=== PATIENT | male | born 1955 | race Caucasian/White ===

== ENCOUNTER 2024-10-01 11:25 | Inpatient (IN) | payer MEDICAID, OTHER ==
--- OUTSIDE RECORDS SUMMARY | 2024-10-01 11:32 | XMS REPORT | Continuity of Care Document ---
Author Name Unknown Address [address] [place] [address]. [address] [place] [address] Organization [facility] [place] Address [address] [facility]. [address] [place] [address] Care Team Providers Care Machine Tool Operator Name Role Phone ABEBA ACOSTA Attending Clinician Unavailable JANIYA GAFFNEY Attending Clinician Unavailable IRISH LEBLANC Attending Clinician Unavailable SHON MAZARIEGOS Attending Clinician Unavaila GRACIELA Matt Attending Clinician Unavailab le LORENA, EKG- Attending Clinician Unavailable [id number] Attending Clinician Unavailable NARGIS LATHAM Attending Clinician Unavaila ble 1, [facility] Attending Clinic kennedy Unavailable [id number] Attending Clinician Unavailable MD JENNIFER Attending Clinician UnavailANDRA Hoffman Attending Clinician Unava ilable [id number] Attending Clinician Unavailable TAMI YODER Attending Clinician Unava ilable ADALBERTO GALINDO Attending Clinician Unavailable TOMOGRAPHY, MP [facility] Attending [place] cooper Unavailable MIGUEL SHEEHAN Attending Clinician Unavailable Payers Payer Name Policy Type Policy Number Effective Date Expirati on Date Source GID Group [employer] HMO-POS 16 [id number] 2024 00:00:00 HUMANA MA GOLD PLUS 42 OA 7 [id number] 2022 00:00:00 Problems Condition Name Condition Details Condition Category Status Onset Date Resolution Date Last Treatment Date Treating Clinician Comments Source 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 (multi HCC) 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 (multi HCC) Disease Active 09-06 00:00: 00 Yue Seybold - Externa l 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, both eyes 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, both eyes Disease Active 09-06 00:00: 00 Yue Seybold - Externa l Type 2 diabetes mellitus with hyperglyce chelsey, with long-term current use of insulin (multi HCC) Type 2 diabetes mellitus with hyperglyce chelsey, with long-term current use of insulin (multi HCC) Disease Active 08-30 00:00: 00 Yue Seybold - Externa l Microalbum inuria due to type 2 diabetes mellitus (multi HCC) Microalbum inuria due to type 2 diabetes mellitus (multi HCC) Disease Active 08-30 00:00: 00 Yue Seybold - Externa l Diabetic polyneurop athy associated with type 2 diabetes mellitus (multi HCC) Diabetic polyneurop athy associated with type 2 diabetes mellitus (multi HCC) Disease Active 07-07 00:00: 00 Yue Seybold - Externa l 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 Disease Active 07-07 00:00: 00 Yue Seybold - Externa l Well adult exam Well adult exam Disease Active 2022-05 00:00: 00 Yue Seybold - Externa l Class 1 obesity due to excess calories with serious comorbidit y and body mass index (BMI) of 32.0 to 32.9 in adult Class 1 obesity due to excess calories with serious comorbidit y and body mass index (BMI) of 32.0 to 32.9 in adult Disease Active 09-09 00:00: 00 Yue Seybold - Externa l Left hip pain Left hip pain Disease Active 09-09 00:00: 00 Yue Seybold - Externa l Class 1 obesity due to excess calories with serious comorbidit y and body mass index (BMI) of 33.0 to 33.9 in adult Class 1 obesity due to excess calories with serious comorbidit y and body mass index (BMI) of 33.0 to 33.9 in adult Disease Active 09-09 00:00: 00 Yue Seybold - Externa l Bilateral tinnitus Bilateral tinnitus Disease Active 09-09 00:00: 00 Yue Seybold - Externa l Hearing loss Hearing loss Disease Active 09-09 00:00: 00 Yue Seybold - Externa l Severe obesity Severe obesity Disease Active 09-09 00:00: 00 Yue Seybold - Externa l Hypertensi on Hypertensi on Disease Active 06-12 00:00: 00 Yue Seybold - Externa l High cholestero l High cholestero l Disease Active 06-12 00:00: 00 Yue Seybold - Externa l DM (diabetes mellitus) DM (diabetes mellitus) Disease Active 06-12 00:00: 00 Overview: Formattin g of this note might be different from the original. type 2 Yue Seybold - Externa l DM type 2 with diabetic mixed hyperlipid emia (multi HCC) DM type 2 with diabetic mixed hyperlipid emia (multi HCC) Disease Active 06-12 00:00: 00 Overview: Formattin g of this note might be different from the original. type 2 Yue Seybold - Externa l Sciatic nerve pain, left Sciatic nerve pain, left Disease Active 06-12 00:00: 00 Yue Seybold - Externa l Allergies, Adverse Reactions, Alerts Allergy Name Allergy Type Status Severity Reaction(s) Onset Date Inactive Date Treating Clinician Comments Source A[place] in [place] to adverse reaction s Active Rash 10-23 00:00: 00 Yue Seybold - Externa l Social History Social Habit Start Date Stop Date Quantity Comments Source History of tobacco use Chews Tobacco Yue Boykin - External Gender identity Consuelo ey Ashutosh - External Sexual orientation K tabithay Ashutosh - External History of Occupation Yue Boykin - External Alcoholic beverage intake 2024-09-22 00:00:00 2024-09-22 00:00:00 Ex-drinker (finding) Yue Boykin - External Alcohol intake 2023-08-05 00:00:00 2023-08-05 00:00:00 Ex-drinker (finding) Yue Boykin - External Education 2023-05-06 00:00:00 2023-05-06 00:00:00 13 Yue Boykin - External History of Social function 2023-05-06 00:00:00 2023-05-06 00:00:00 Yue Boykin - External Tobacco use and exposure 2023-05-06 00:00:00 2023-05-06 00:00:00 Former smokeless tobacco user Yue Boykin - External Sex 2022-06-05 12:38:15 2022-06-05 12:38:15 Male (finding) Yue Boykin - External Sex assigned at 1955 00:00:00 1955 00:00:00 Yue Boykin - External Smoking Status Start Date Stop Date Source Never smoked tobacco Yue Boykin - External Medications Ordered Medication Name Filled Medication Name Start Date Stop Date Current Medication? Ordering Clinician Indication Dosage Frequency Signature (SIG) Comments Components Source Bevacizumab (AVASTIN) injection 1.25 mg/0.05 mL (INJ07) - Physician Administere d 09-22 10:10: 19 No [id number] 1.25mg 1.25 mg, Physician Administer ed, ONCE, 1 dose, On Fri09/22/24 at 1015 Yue tracy [place]-3 Fatty Acids (Fish Oil) 1000 MG oral Capsule 09-22 09:48: 22 Yes [id number] 3 1000mg Q.5D Take 1 capsule (1,000 mg total) by mouth in the morning and 1 capsule (1,000 mg total) in the evening. Yue tracy Fexofenadin e (Deja Allergy) 180 MG oral Tablet 09-22 09:48: 22 Yes 180mg QD Take 1 tablet (180 mg total) by mouth daily. Yue tracy Insulin Pen Needle (Pen [place]) 31G X 8 MM does not apply [facility] 09-14 00:00: 00 Yes [id number] 9109 Inject Lantus Solostar 60 units into the skin 2 times daily.. Yue tracy [place]-3 Fatty Acids (Fish Oil) 1000 MG oral Capsule 09-08 09:51: 26 Yes [id number] 3 1000mg Q.5D Take 1 capsule (1,000 mg total) by mouth in the morning and 1 capsule (1,000 mg total) in the evening. Yue tracy Fexofenadin e (Deja Allergy) 180 MG oral Tablet 09-08 09:51: 26 Yes 180mg QD Take 1 tablet (180 mg total) by mouth daily. Yue tracy Moxifloxaci n HCl 0.5 % ophthalmic Solution 09-08 00:00: 00 Yes 1[drp] Q.25D Place 1 drop into both eyes 4 times daily. Yue tracy prednisoLON E Acetate 1 % ophthalmic Suspension 09-08 00:00: 00 Yes 1[drp] Q.25D Place 1 drop into both eyes 4 times daily. Yue tracy KETOROLAC TROMETHAMIN E, OPHTH, 0.5 % ophthalmic Solution 09-08 00:00: 00 Yes 1[drp] Q.25D Place 1 drop into both eyes 4 times daily. Yue tracy Aspirin (Aspirin 81) 81 MG oral Tablet Delayed Response 09-06 09:25: 02 09-06 00:00 :00 No 81mg QD Take 1 tablet (81 mg total) by mouth daily. Yue tracy [place]-3 Fatty Acids (Fish Oil) 1000 MG oral Capsule 09-06 09:05: 19 Yes [id number] 3 1000mg Q.5D Take 1 capsule (1,000 mg total) by mouth in the morning and 1 capsule (1,000 mg total) in the evening. Yue tracy Fexofenadin e (Deja Allergy) 180 MG oral Tablet 09-06 09:05: 19 Yes 180mg QD Take 1 tablet (180 mg total) by mouth daily. Yue tracy Atorvastati n Calcium 10 MG oral Tablet 09-06 00:00: 00 Yes [id number] 3 10mg QD Take 1 tablet (10 mg total) by mouth daily. Yue tracy Valsartan-h ydroCHLOROt hiazide 320-25 MG oral Tablet 09-06 00:00: 00 Yes [id number] 1{tbl} QD Take 1 tablet by mouth daily. Yue tracy Amlodipine Besylate 10 MG oral Tablet 09-06 00:00: 00 Yes [id number] 10mg QD Take 1 tablet (10 mg total) by mouth daily. Yue tracy Aspirin 325 MG oral Tablet 09-06 00:00: 00 Yes [id number] 325mg QD Take 1 tablet (325 mg total) by mouth daily. Yue tracy Bevacizumab (AVASTIN) infusion 1.25 mg/0.05 mL (INJ07)- Physician Administere d 08-25 13:56: 04 No [id number] 1.25mg 1.25 mg, Physician Administer ed, ONCE, 1 dose, On Fri08/25/24 at 1400 Yue tracy Aspirin (Aspirin 81) 81 MG oral Tablet Delayed Response 08-25 13:27: 40 Yes 81mg QD Take 1 tablet (81 mg total) by mouth daily. Yue tracy [place]-3 Fatty Acids (Fish Oil) 1000 MG oral Capsule 08-25 13:27: 40 Yes [id number] 3 1000mg Q.5D Take 1 capsule (1,000 mg total) by mouth in the morning and 1 capsule (1,000 mg total) in the evening. Yue tracy Fexofenadin e (Deja Allergy) 180 MG oral Tablet 08-25 13:27: 40 Yes 180mg QD Take 1 tablet (180 mg total) by mouth daily. Yue tracy [place]-3 Fatty Acids (Fish Oil) 1000 MG oral Capsule 08-06 09:34: 59 Yes [id number] 3 1000mg Q.5D Take 1 capsule (1,000 mg total) by mouth 2 times daily. Yue tracy Aspirin (Aspirin 81) 81 MG oral Tablet Delayed Response 08-06 09:34: 58 Yes 81mg QD Take 1 tablet (81 mg total) by mouth daily. Yue tracy Fexofenadin e (Deja Allergy) 180 MG oral Tablet 08-06 09:34: 58 Yes 180mg QD Take 1 tablet (180 mg total) by mouth daily. Yue tracy Benzonatate (Tessalon Perles) 100 MG oral Capsule 08-06 00:00: 00 09-06 00:00 :00 No [id number] 100mg Q.[id number] 3D Take 1 capsule (100 mg total) by mouth 3 times daily as needed for cough. Yue tracy Famotidine (Pepcid) 20 MG oral tablet 08-06 00:00: 00 09-06 00:00 :00 No [id number] 20mg Q.5D Take 1 tablet (20 mg total) by mouth 2 times daily as needed for heartburn. Yue tracy Azithromyci n 250 MG oral Tablet 08-06 00:00: 00 08-12 04:59 :00 Yes [id number] Take 2 tablets by mouth on day 1 then 1 tablet by mouth daily for 4 days thereafter .. Yue tracy Aspirin (Aspirin 81) 81 MG oral Tablet Delayed Response 07-21 13:23: 06 Yes 81mg QD Take 1 tablet (81 mg total) by mouth daily. Yue tracy [place]-3 Fatty Acids (Fish Oil) 1000 MG oral Capsule - 13:23: 06 Yes [id number] 3 1000mg Q.5D Take 1 capsule (1,000 mg total) by mouth 2 times daily. Yue tracy Aspirin (Aspirin 81) 81 MG oral Tablet Delayed Response - 08:39: 53 Yes 81mg QD Take 1 tablet (81 mg total) by mouth daily. Yue tracy [place]-3 Fatty Acids (Fish Oil) 1000 MG oral Capsule -10 08:39: 53 Yes [id number] 3 1000mg Q.5D Take 1 capsule (1,000 mg total) by mouth 2 times daily. Yue tracy Gabapentin 300 MG oral Capsule 06-04 00:00: 00 Yes [id number] 300mg Q.[id number] 3D Take 1 capsule (300 mg total) by mouth 3 times daily as needed. Yue tracy Metformin HCl 1000 MG oral Tablet 06-04 00:00: 00 Yes [id number] 1000mg Q.5D Take 1 tablet (1,000 mg total) by mouth 2 times daily. Yue tracy Meloxicam 15 MG oral Tablet 06-04 00:00: 00 Yes [id number] 15mg QD Take 1 tablet (15 mg total) by mouth daily as needed for pain. Yue tracy Insulin Glargine (Lantus SoloStar) 100 UNIT/ML subcutaneou s Solution Pen-injecto r 06-04 00:00: 00 Yes [id number] 60U Q.5D Inject 60 units into the skin 2 times daily. Yue tracy Valsartan-h ydroCHLOROt hiazide 320-25 MG oral Tablet 06-04 00:00: 00 09-06 00:00 :00 No [id number] 1{tbl} QD Take 1 tablet by mouth daily. Yue tracy Amlodipine Besylate 10 MG oral Tablet 06-04 00:00: 00 09-06 00:00 :00 No [id number] 10mg QD Take 1 tablet (10 mg total) by mouth daily. Yue tracy Faricimab-s voa SOSY 6 mg 2023-05 10:17: 37 No [id number] 6mg 6 mg, Physician Administer ed, ONCE, 1 dose, On Fri05/05/24 at 0945 Yue tracy Aspirin (Aspirin 81) 81 MG oral Tablet Delayed Response 2023-05 09:40: 17 Yes 81mg QD Take 1 tablet (81 mg total) by mouth daily. Yue tracy [place]-3 Fatty Acids (Fish Oil) 1000 MG oral Capsule 2023-05 09:40: 17 Yes [id number] 3 1000mg Q.5D Take 1 capsule (1,000 mg total) by mouth 2 times daily. Yue tracy Meloxicam 15 MG oral Tablet 2023-05 2-11 00:00: 00 06-04 00:00 :00 No [id number] 15mg QD TAKE 1 TABLET BY MOUTH ONCE DAILY NEEDED FOR PAIN Yue tracy Insulin Glargine (Lantus SoloStar) 100 UNIT/ML subcutaneou s Solution Pen-injecto r 2023-05 1-12 00:00: 00 06-04 00:00 :00 No [id number] 60U Q.5D Inject 60 units into the skin 2 times daily. Yue tracy Simvastatin 10 MG oral Tablet 2023-05 0-09 00:00: 00 09-06 00:00 :00 No [id number] 3 10mg QD Take 1 tablet (10 mg total) by mouth nightly. Yue tracy Faricimab-S VOA (VABYSMO) 2 mg/0.05 mL Intravitrea l Vial - Physician Administere d ([id number]) 02-08 13:32: 29 No [id number] 12mg 12 mg, Physician Administer ed, ONCE, 1 dose, On Fri02/09/24 at 1330 Yue tracy Aspirin (Aspirin 81) 81 MG oral Tablet Delayed Response 02-08 12:44: 02 Yes 81mg QD Take 1 tablet (81 mg total) by mouth daily. Yue tracy [place]-3 Fatty Acids (Fish Oil) 1000 MG oral Capsule 02-08 12:44: 02 Yes [id number] 3 1000mg Q.5D Take 1 capsule (1,000 mg total) by mouth 2 times daily. Yue tracy Insulin Glargine (Lantus SoloStar) 100 UNIT/ML subcutaneou s Solution Pen-injecto r 02-03 00:00: 00 Yes [id number] INJECT UNDER THE SKIN 60 UNITS DAILY IN MORNING AND 60 UNITS EVERY NIGHT. Yue tracy Empaglifloz in (Jardiance) 10 MG oral Tablet 2024-0 9-11 00:00: 00 Yes [id number] 10mg QD Take 1 tablet (10 mg total) by mouth daily. Yue tracy Meloxicam 15 MG oral Tablet - 00:00: 00 Yes [id number] 15mg QD take 1 tablet by mouth once daily as needed for pain Yue tracy Faricimab-S VOA (VABYSMO) 2 mg/0.05 mL Intravitrea l Vial - Physician Administere d ([id number]) 12-04 10:14: 43 No [id number] 12mg 12 mg, Physician Administer ed, ONCE, 1 dose, On Fri12/05/23 at 0930 Yue tracy Aspirin (Aspirin 81) 81 MG oral Tablet Delayed Response 12-04 10:13: 14 Yes 81mg QD Take 1 tablet (81 mg total) by mouth daily. Yue tracy [place]-3 Fatty Acids (Fish Oil) 1000 MG oral Capsule 12-04 10:13: 14 Yes [id number] 3 1000mg Q.5D Take 1 capsule (1,000 mg total) by mouth 2 times daily. Yue tracy Insulin Glargine (Lantus SoloStar) 100 UNIT/ML subcutaneou s Solution Pen-injecto r 11-23 00:00: 00 Yes [id number] INJECT UNDER THE SKIN 70 UNITS DAILY IN MORNING AND 60 UNITS EVERY NIGHT. Yue tracy Meloxicam 15 MG oral Tablet 10-26 00:00: 00 Yes [id number] 15mg QD Take 1 tablet (15 mg total) by mouth daily as needed for pain. Yue tracy Valsartan-h ydroCHLOROt hiazide 320-25 MG oral Tablet - 00:00: 00 06-04 00:00 :00 No [id number] 1{tbl} QD Take 1 tablet by mouth daily. Yue tracy Faricimab-S VOA (VABYSMO) 2 mg/0.05 mL Intravitrea l Vial - Physician Administere d ([id number]) 10-07 14:15: 00 10-07 14:09 :00 No [id number] 12mg 12 mg, Physician Administer ed, ONCE, 1 dose, On Fri10/08/23 at 0915 Yue tracy Empaglifloz in (Jardiance) 10 MG oral Tablet 09-14 00:00: 00 02-03 00:00 :00 No [id number] 3 10mg QD Take 1 tablet (10 mg total) by mouth daily. Yue tracy Insulin Glargine (Lantus SoloStar) 100 UNIT/ML subcutaneou s Solution Pen-injecto r 09-03 00:00: 00 Yes [id number] Inject 70 units sc every am and 60 units sc every night. Yue tracy Gabapentin 300 MG oral Capsule 08-31 00:00: 00 06-04 00:00 :00 No [id number] 300mg Q.[id number] 3D Take 1 capsule (300 mg total) by mouth 3 times daily as needed. Yue tracy Faricimab-S VOA (VABYSMO) 2 mg/0.05 mL Intravitrea l Vial - Physician Administere d ([id number]) 08-12 16:00: 00 08-12 15:49 :00 No [id number] 12mg Yue tracy Bimatoprost (Lumigan) 0.01 % ophthalmic Solution 08-12 10:01: 55 Yes 750 1[drp] Place 1 drop into both eyes 2 times daily. Indication s: Glaucoma Yue tracy Aspirin (Aspirin 81) 81 MG oral Tablet Delayed Response 08-12 09:51: 18 Yes 81mg Take 1 tablet (81 mg total) by mouth daily. Yue tracy [place]-3 Fatty Acids (Fish Oil) 1000 MG oral Capsule 08-12 09:51: 18 Yes [id number] 3 1000mg Take 1 capsule (1,000 mg total) by mouth 2 times daily. Yue Seybold - Externa l Dorzolamide HCl 2 % ophthalmic Solution 08-04 00:00: 00 Yes [id number] 1[drp] Q.5D Place 1 drop into both eyes 2 times daily. Yue Swanson Externa l Aspirin (Aspirin 81) 81 MG oral Tablet Delayed Response 08-03 13:51: 18 Yes 81mg Take 1 tablet (81 mg total) by mouth daily. Yue Swanson Externa demarcus [place]-3 Fatty Acids (Fish Oil) 1000 MG oral Capsule 08-03 13:51: 18 Yes [id number] 3 1000mg Take 1 capsule (1,000 mg total) by mouth 2 times daily. Yue Swanson Externa demarcus Bimatoprost (Lumigan) 0.01 % ophthalmic Solution 08-03 13:51: 18 Yes 750 1[drp] Place 1 drop into both eyes 2 times daily. Indication s: Glaucoma Yue tracy Meloxicam 15 MG oral Tablet 07-28 00:00: 00 Yes [id number] 15mg QD Take 1 tablet (15 mg total) by mouth daily as needed for pain. Yue Cummingsa demarcus Insulin Glargine (Lantus SoloStar) 100 UNIT/ML subcutaneou s Solution Pen-injecto r 07-23 00:00: 00 Yes [id number] Inject 70 units sc every am and 60 units sc every night. Yue tracy Faricimab-S VOA (VABYSMO) 2 mg/0.05 mL Intravitrea l Vial - Physician Administere d ([id number]) 07-09 20:15: 00 07-09 20:21 :00 No [id number] 12mg Yue tracy Aspirin (Aspirin 81) 81 MG oral Tablet Delayed Response 07-09 13:59: 34 Yes 81mg Take 1 tablet (81 mg total) by mouth daily. Yue Cummingsa demarcus Meloxicam 15 MG oral Tablet 07-09 13:59: 34 Yes [id number] 15mg Take 1 tablet (15 mg total) by mouth daily. Yue Seybold - Externa l [place]-3 Fatty Acids (Fish Oil) 1000 MG oral Capsule 14 13:59: 34 Yes [id number] 3 1000mg Take 1 capsule (1,000 mg total) by mouth 2 times daily. Yue tracy [place]-3 Fatty Acids (Fish Oil) 1000 MG oral Capsule 07-07 09:11: 58 Yes [id number] 3 1000mg Take 1 capsule (1,000 mg total) by mouth 2 times daily. Yue tracy Aspirin (Aspirin 81) 81 MG oral Tablet Delayed Response 07-07 08:52: 50 Yes 81mg Take 1 tablet (81 mg total) by mouth daily. Yue tracy Meloxicam 15 MG oral Tablet 07-07 08:52: 50 Yes [id number] 15mg Take 1 tablet (15 mg total) by mouth daily. Yue tracy Insulin Glargine (Lantus SoloStar) 100 UNIT/ML subcutaneou s Solution Pen-injecto r 07-07 00:00: 00 Yes [id number] Inject 70 units sc every am and 60 units sc every night. Yue tracy Gabapentin 300 MG oral Capsule 07-07 00:00: 00 Yes [id number] 300mg Q.5D Take 1 capsule (300 mg total) by mouth 2 times daily as needed (neuropath y). Yue tracy Metformin HCl 1000 MG oral Tablet 07-07 00:00: 00 06-04 00:00 :00 No [id number] 1000mg Q.5D Take 1 tablet (1,000 mg total) by mouth 2 times daily. Yue tracy Amlodipine Besylate 10 MG oral Tablet 07-07 00:00: 00 06-04 00:00 :00 No [id number] 10mg QD Take 1 tablet (10 mg total) by mouth daily. Yue tracy Gabapentin 300 MG oral Capsule -12 00:00: 00 07-07 00:00 :00 No [id number] 300mg Q.[id number] 3D Take 1 capsule (300 mg total) by mouth 3 times daily as needed. Yue tracy Faricimab-S VOA (VABYSMO) 2 mg/0.05 mL Intravitrea l Vial - Physician Administere d ([id number]) 2022-05 15:15: 00 05-21 15:09 :00 No [id number] 12mg Yue Conti l Aspirin (Aspirin 81) 81 MG oral Tablet Delayed Response 2022-05 09:07: 38 Yes 81mg Take 1 tablet (81 mg total) by mouth daily. Yue Cummingsa demarcus Aspirin (Aspirin 81) 81 MG oral Tablet Delayed Response 2022-05 10:15: 47 Yes 81mg Take 1 tablet (81 mg total) by mouth daily. Yue tracy Metformin HCl 1000 MG oral Tablet 2022-05 00:00: 00 07-07 00:00 :00 No [id number] 3 1000mg Take 1 tablet (1,000 mg total) by mouth 2 times daily. Yue tracy Bilateral: Dexamethaso ne [0.7 mg], 1.4mg Intravitrea l - Physician Administere d ([id number]) 2022-05 16:15: 00 04-09 16:13 :00 No [id number] 1.4mg Yue tracy Aspirin (Aspirin 81) 81 MG oral Tablet Delayed Response 2022-05 09:17: 25 Yes 81mg Take 1 tablet (81 mg total) by mouth daily. Yue Cummingsa l Bilateral: Bevacizumab (AVASTIN) [100 mg/4 mL], 2.5mg - Physician Administere d ([id number]) 2022-05 15:45: 00 03-12 16:11 :00 No [id number] 2.5mg Yue Conti l Aspirin (Aspirin 81) 81 MG oral Tablet Delayed Response 2022-05 11:03: 04 Yes 81mg Take 1 tablet (81 mg total) by mouth daily. Yue tracy Cholecalcif pat (D3 5000) 125 MCG (5000 UT) oral Capsule 2022-05 09:40: 59 03-10 00:00 :00 No Take by mouth Yue tracy Dorzolamide HCl 2 % ophthalmic Solution 2022-05 09:40: 55 03-10 00:00 :00 No 1[drp] Place 1 drop into both eyes 2 times daily. Yue tracy Aspirin (Aspirin 81) 81 MG oral Tablet Delayed Response 2022-05 09:37: 04 Yes 81mg Take 1 tablet (81 mg total) by mouth daily. Yue tracy Gabapentin 300 MG oral Capsule 2022-05 00:00: 00 Yes [id number] 300mg Q.[id number] 3D Take 1 capsule (300 mg total) by mouth 3 times daily as needed. Yue tracy Aspirin (Aspirin 81) 81 MG oral Tablet Delayed Response 2022-05 09:36: 13 Yes 81mg Take 1 tablet (81 mg total) by mouth daily. Yue tracy Cholecalcif pat (D3 5000) 125 MCG (5000 UT) oral Capsule 2022-05 09:36: 13 Yes Take by mouth Yue tracy Dorzolamide HCl 2 % ophthalmic Solution 2022-05 09:36: 13 Yes 1[drp] Place 1 drop into both eyes 2 times daily. Yue tracy Tizanidine HCl 2 MG oral Tablet 2022-05 00:00: 00 07-07 00:00 :00 No [id number] 2mg Take 1 tablet (2 mg total) by mouth at bedtime as needed for muscle spasms. Yue tracy Insulin Pen Needle (Pen [place]) 32G X 4 MM does not apply [facility] 2022-05 00:00: 00 Yes [id number] 3 70U Q.5D Inject 70 units into the skin 2 times daily Provide what insurance covers. Thank you.. Yue tracy Bilateral: Bevacizumab (AVASTIN) [100 mg/4 mL], 2.5mg - Physician Administere d ([id number]) 02-12 15:30: 00 02-12 15:21 :00 No [id number] 2.5mg Yue tracy Aspirin (Aspirin 81) 81 MG oral Tablet Delayed Response 02-12 09:55: 11 Yes 81mg Take 1 tablet (81 mg total) by mouth daily. Yue tracy Cholecalcif pat (D3 5000) 125 MCG (5000 UT) oral Capsule 02-12 09:55: 11 Yes Take by mouth Yue tracy Dorzolamide HCl 2 % ophthalmic Solution 02-12 09:55: 11 Yes 1[drp] Place 1 drop into both eyes 2 times daily. Yue tracy Alprazolam 0.25 MG oral Tablet 02-07 00:00: 00 03-10 00:00 :00 No [id number] .25mg QD Take 1 tablet (0.25 mg total) by mouth daily as needed for anxiety. Yue tracy Metformin HCl 1000 MG oral Tablet 01-20 00:00: 00 Yes [id number] 3 1000mg TAKE 1 TABLET BY MOUTH TWICE A DAY Yue tracy Bilateral: Bevacizumab (AVASTIN) [100 mg/4 mL], 2.5mg - Physician Administere d ([id number]) 01-15 14:00: 00 01-15 13:57 :00 No [id number] 2.5mg Yue tracy Aspirin (Aspirin 81) 81 MG oral Tablet Delayed Response 01-15 07:57: 46 Yes 81mg Take 1 tablet (81 mg total) by mouth daily. Yue tracy Cholecalcif pat (D3 5000) 125 MCG (5000 UT) oral Capsule 01-15 07:57: 46 Yes Take by mouth Yue tracy Dorzolamide HCl 2 % ophthalmic Solution 01-15 07:57: 46 Yes 1[drp] Place 1 drop into both eyes 2 times daily. Yue tracy Aspirin (Aspirin 81) 81 MG oral Tablet Delayed Response 01-07 08:43: 47 Yes 81mg Take 1 tablet (81 mg total) by mouth daily Yue tracy Cholecalcif pat (D3 5000) 125 MCG (5000 UT) oral Capsule 01-07 08:43: 47 Yes Take by mouth Yue tracy Dorzolamide HCl 2 % ophthalmic Solution 01-07 08:43: 47 Yes 1[drp] Place 1 drop into both eyes 2 times daily Yue tracy Cyclobenzap rine HCl 10 MG oral Tablet 12-28 00:00: 00 03-07 00:00 :00 No Yue tracy Dorzolamide HCl 2 % ophthalmic Solution 12-09 08:42: 54 Yes 1[drp] Place 1 drop into both eyes 2 times daily Yue tracy Aspirin (Aspirin 81) 81 MG oral Tablet Delayed Response 12-09 08:25: 32 Yes 81mg Take 1 tablet (81 mg total) by mouth daily. Yue tracy Cholecalcif pat (D3 5000) 125 MCG (5000 UT) oral Capsule 12-09 08:25: 32 Yes Take by mouth Yue tracy Simvastatin 10 MG oral Tablet 12-09 00:00: 00 Yes [id number] 3 10mg QD Take 1 tablet (10 mg total) by mouth nightly Yue tracy Gabapentin 100 MG oral Capsule 11-01 00:00: 00 03-10 00:00 :00 No [id number] 100mg Q.[id number] 3D Take 1 capsule (100 mg total) by mouth 3 times daily as needed Yue tracy Metformin HCl 1000 MG oral Tablet 10-23 00:00: 00 Yes [id number] 3 1000mg Take 1 tablet (1,000 mg total) by mouth 2 times daily Yue tracy Valsartan-h ydroCHLOROt hiazide 320-25 MG oral Tablet 10-07 00:00: 00 Yes [id number] 1{tbl} Take 1 tablet by mouth daily Yue tracy Amlodipine Besylate 10 MG oral Tablet 10-07 00:00: 00 07-07 00:00 :00 No [id number] 10mg Take 1 tablet (10 mg total) by mouth daily Yue tracy Aspirin (Aspirin 81) 81 MG oral Tablet Delayed Response 09-09 09:17: 09 Yes 81mg Take 1 tablet (81 mg total) by mouth daily Yue tracy Cholecalcif pat (D3 5000) 125 MCG (5000 UT) oral Capsule 09-09 09:17: 09 Yes Take by mouth Yue tracy Empaglifloz in (Jardiance) 10 MG oral Tablet 09-09 00:00: 00 Yes [id number] 3 10mg Take 1 tablet (10 mg total) by mouth daily Yue tracy Gabapentin 100 MG oral Capsule 09-09 00:00: 00 Yes [id number] 100mg [id number] 3D Take 1 capsule (100 mg total) by mouth 3 times daily as needed Yue tracy Meloxicam 15 MG oral Tablet 09-09 00:00: 00 03-10 00:00 :00 No [id number] 15mg QD Take 1 tablet (15 mg total) by mouth daily as needed for pain Yue tracy Simvastatin 10 MG oral Tablet 09-09 00:00: 00 12-09 00:00 :00 No [id number] 3 10mg Take 1 tablet (10 mg total) by mouth nightly Yue tracy Gabapentin 100 MG oral Capsule 08-25 00:00: 00 09-09 00:00 :00 No Yue tracy Insulin Glargine (Lantus SoloStar) 100 UNIT/ML subcutaneou s Solution Pen-injecto r 2- 00:00: 00 07-07 00:00 :00 No [id number] Inject 70 units twice daily Yue tracy Aspirin (Aspirin 81) 81 MG oral Tablet Delayed Response 06-11 10:29: 41 Yes 81mg Take 81 mg by mouth daily Yue tracy Cholecalcif pat (D3 5000) 125 MCG (5000 UT) oral Capsule 06-11 10:29: 41 Yes Take by mouth Yue tracy Jardiance 10 MG oral Tablet 06-01 00:00: 00 Yes 1{tbl} Take 1 tablet by mouth daily Yue tracy Jardiance 10 MG oral Tablet 06-01 00:00: 00 09-09 00:00 :00 No 10mg Take 1 tablet (10 mg total) by mouth daily Yue tracy Metformin HCl 1000 MG oral Tablet 05-29 00:00: 00 Yes 1{tbl} Take 1 tablet by mouth 2 times daily Yue tracy Valsartan-h ydroCHLOROt hiazide 320-25 MG oral Tablet 05-29 00:00: 00 Yes 1{tbl} Take 1 tablet by mouth daily Yue tracy Amlodipine Besylate 10 MG oral Tablet 05-29 00:00: 00 Yes 1{tbl} Take 1 tablet by mouth daily Yue tracy Simvastatin 10 MG oral Tablet 05-29 00:00: 00 Yes 1{tbl} Take 1 tablet by mouth nightly Yue tracy Metformin HCl 1000 MG oral Tablet 05-29 00:00: 00 Yes 1000mg Take 1 tablet (1,000 mg total) by mouth 2 times daily Yue tracy Amlodipine Besylate 10 MG oral Tablet 05-29 00:00: 00 Yes 10mg Take 1 tablet (10 mg total) by mouth daily Yue tracy Simvastatin 10 MG oral Tablet 05-29 00:00: 00 09-09 00:00 :00 No 10mg Take 1 tablet (10 mg total) by mouth nightly Yue Seybold - Externa l Bimatoprost (Lumigan) 0.01 % ophthalmic Solution 1- 00:00: 00 10-06 00:00 :00 No 750 1[drp] Place 1 drop into both eyes 2 times daily. Indication s: Glaucoma Yue Seybold - Externa l Semglee, yfgn, 100 UNIT/ML subcutaneou s Solution Pen-injecto r 2021-05 00:00: 00 Yes 70U Inject 70 units into the skin 2 times daily Yue Seybold - Externa l Immunizations Ordered Immunization Name Filled Immunization Name Date Status Comments Source Influenza Virus Vaccine, High Dose, Age 65 And Up Unknown Completed Yue Seybold - External RSV, unspecified formulation Unknown Completed Yue Seybold - External Influenza Virus Vaccine, High Dose, Age 65 And Up Unknown Completed Yue Seybold - External RSV, unspecified formulation Unknown Completed Yue Seybold - External Influenza Virus Vaccine, Quadrivalent, High Dose, Age 65 And Up Unknown Completed Yue S eybold - External RSV, Abryzvo Unknown Completed Yue Seybold - External Influenza Virus Vaccine, High Dose, Age 65 And Up Unknown Completed Yue Seybold - External RSV, unspecified formulation Unknown Completed Yue Seybold - External Influenza Virus Vaccine, Quadrivalent, High Dose, Age 65 And Up Unknown Completed Yue S eybold - External RSV, Abryzvo Unknown Completed Yue Seybold - External Influenza Virus Vaccine, High Dose, Age 65 And Up Unknown Completed Yue Seybold - External RSV, unspecified formulation Unknown Completed Yue Seybold - External Influenza Virus Vaccine, Quadrivalent, High Dose, Age 65 And Up Unknown Completed Yue S eybold - External RSV, Abrysvo Unknown Completed Yue Seybold - External Influenza Virus Vaccine, High Dose, Age 65 And Up Unknown Completed Yue Seybold - External RSV, unspecified formulation Unknown Completed Yue Seybold - External Influenza Virus Vaccine, Quadrivalent, High Dose, Age 65 And Up Unknown Completed Yue S eybold - External RSV, Abrysvo Unknown Completed Yue Seybold - External Pneumococcal Vaccine, Conjugate 20 Unknown Completed Yue Seybold - External Influenza Virus Vaccine, High Dose, Age 65 And Up Unknown Completed Yue Seybold - External RSV, unspecified formulation Unknown Completed Yue Seybold - External Influenza Virus Vaccine, Quadrivalent, High Dose, Age 65 And Up Unknown Completed Yue S eybold - External RSV, Abrysvo Unknown Completed Yue Seybold - External Pneumococcal Vaccine, Conjugate 20 Unknown Completed Yue Seybold - External Influenza Virus Vaccine, High Dose, Age 65 And Up Unknown Completed Yue Seybold - External RSV, unspecified formulation Unknown Completed Yue Seybold - External Influenza Virus Vaccine, Quadrivalent, High Dose, Age 65 And Up Unknown Completed Yue S eybold - External RSV, Abrysvo Unknown Completed Yue Seybold - External Pneumococcal Vaccine, Conjugate 20 Unknown Completed Yue Seybold - External Influenza Virus Vaccine, High Dose, Age 65 And Up Unknown Completed Yue Seybold - External RSV, unspecified formulation Unknown Completed Yue Seybold - External Influenza Virus Vaccine, Quadrivalent, High Dose, Age 65 And Up Unknown Completed Yue S eybold - External RSV, Abrysvo Unknown Completed Yue Seybold - External Pneumococcal Vaccine, Conjugate 20 Unknown Completed Yue Seybold - External Influenza Virus Vaccine, High Dose, Age 65 And Up Unknown Completed Yue Seybold - External RSV, unspecified formulation Unknown Completed Yue Seybold - External Influenza Virus Vaccine, Quadrivalent, High Dose, Age 65 And Up Unknown Completed Yue S eybold - External RSV, Abrysvo Unknown Completed Yue Seybold - External Pneumococcal Vaccine, Conjugate 20 Unknown Completed Yue Seybold - External Covid-19 Vaccine (Pfizer), Mrna-lnp, Boris Protein, Pf, 30mcg/0.3ml,IM Unknown Completed Yue Seybol d - External Influenza Virus Vaccine, High Dose, Age 65 And Up Unknown Completed Yue Seybold - External RSV, unspecified formulation Unknown Completed Yue Seybold - External Influenza Virus Vaccine, Quadrivalent, High Dose, Age 65 And Up Unknown Completed Yue S eybold - External RSV, Abrysvo Unknown Completed Yue Seybold - External Pneumococcal Vaccine, Conjugate 20 Unknown Completed Yue Seybold - External Covid-19 Vaccine (Pfizer), Mrna-lnp, Boris Protein, Pf, 30mcg/0.3ml,IM Unknown Completed Yue Seybol d - External Influenza Virus Vaccine, High Dose, Age 65 And Up Unknown Completed Yue Seybold - External RSV, unspecified formulation Unknown Completed Yue Seybold - External Influenza Virus Vaccine, Quadrivalent, High Dose, Age 65 And Up Unknown Completed Yue S eybold - External RSV, Abrysvo Unknown Completed Yue Seybold - External Pneumococcal Vaccine, Conjugate 20 Unknown Completed Yue Seybold - External Covid-19 Vaccine (Pfizer), Mrna-lnp, Boris Protein, Pf, 30mcg/0.3ml,IM Unknown Completed Yue Seybol d - External COVID-19 Vaccine(Pfizer)(fall 2022)(12yrs+) Unknown Completed Yue Seybold - External Influenza Virus Vaccine, High Dose, Age 65 And Up Unknown Completed Yue Seybold - External RSV, unspecified formulation Unknown Completed Yue Seybold - External Influenza Virus Vaccine, Quadrivalent, High Dose, Age 65 And Up Unknown Completed Yue S eybold - External RSV, Abrysvo Unknown Completed Yue Seybold - External Pneumococcal Vaccine, Conjugate 20 Unknown Completed Yue Seybold - External Covid-19 Vaccine (Pfizer), Mrna-lnp, Boris Protein, Pf, 30mcg/0.3ml,IM Unknown Completed Yue Seybol d - External COVID-19 Vaccine(Pfizer)(fall 2022)(12yrs+) Unknown Completed Yue Seybold - External Influenza Virus Vaccine, High Dose, Age 65 And Up Unknown Completed Yue Seybold - External RSV, unspecified formulation Unknown Completed Yue Seybold - External Influenza Virus Vaccine, Quadrivalent, High Dose, Age 65 And Up Unknown Completed Yue S eybold - External RSV, Abrysvo Unknown Completed Yue Seybold - External Pneumococcal Vaccine, Conjugate 20 Unknown Completed Yue Seybold - External Covid-19 Vaccine (Pfizer), Mrna-lnp, Boris Protein, Pf, 30mcg/0.3ml,IM Unknown Completed Yue Seybol d - External COVID-19 Vaccine(Pfizer)(fall 2022)(12yrs+) Unknown Completed Yue Seybold - External Influenza Virus Vaccine, High Dose, Age 65 And Up Unknown Completed Yue Seybold - External RSV, unspecified formulation Unknown Completed Yue Seybold - External Influenza Virus Vaccine, Quadrivalent, High Dose, Age 65 And Up Unknown Completed Yue S eybold - External RSV, Abrysvo Unknown Completed Yue Seybold - External Pneumococcal Vaccine, Conjugate 20 Unknown Completed Yue Seybold - External Covid-19 Vaccine (Pfizer), Mrna-lnp, Boris Protein, Pf, 30mcg/0.3ml,IM Unknown Completed Yue Seybol d - External COVID-19 Vaccine(Pfizer)(12yrs +) Unknown Completed Yue Seybold - External Tdap- (Boostrix, Adacel) Unknown Completed Yue Seybold - External Influenza Virus Vaccine, High Dose, Age 65 And Up Unknown Completed Yue Seybold - External RSV, unspecified formulation Unknown Completed Yue Seybold - External Influenza Virus Vaccine, Quadrivalent, High Dose, Age 65 And Up Unknown Completed Yue S eybold - External RSV, Abrysvo Unknown Completed Yue Seybold - External Pneumococcal Vaccine, Conjugate 20 Unknown Completed Yue Seybold - External Covid-19 Vaccine (Pfizer), Mrna-lnp, Boris Protein, Pf, 30mcg/0.3ml,IM Unknown Completed Yue Seybol d - External COVID-19 Vaccine(Pfizer)(12yrs +) Unknown Completed Yue Seybold - External Tdap- (Boostrix, Adacel) Unknown Completed Yue Seybold - External Influenza Virus Vaccine, High Dose, Age 65 And Up Unknown Completed Yue Seybold - External RSV, unspecified formulation Unknown Completed Yue Seybold - External Influenza Virus Vaccine, Quadrivalent, High Dose, Age 65 And Up Unknown Completed Yue S eybold - External RSV, Abrysvo Unknown Completed Yue Seybold - External Pneumococcal Vaccine, Conjugate 20 Unknown Completed Yue Seybold - External Covid-19 Vaccine (Pfizer), Mrna-lnp, Boris Protein, Pf, 30mcg/0.3ml,IM Unknown Completed Yue Seybol d - External COVID-19 Vaccine(Pfizer)(12yrs +) Unknown Completed Yue Seybold - External Tdap- (Boostrix, Adacel) Unknown Completed Yue Seybold - External Influenza Virus Vaccine, High Dose, Age 65 And Up Unknown Completed Yue Seybold - External RSV, unspecified formulation Unknown Completed Yue Seybold - External Influenza Virus Vaccine, Quadrivalent, High Dose, Age 65 And Up Unknown Completed Yue S eybold - External RSV, Abrysvo Unknown Completed Yue Seybold - External Pneumococcal Vaccine, Conjugate 20 Unknown Completed Yue Seybold - External Covid-19 Vaccine (Pfizer), Mrna-lnp, Boris Protein, Pf, 30mcg/0.3ml,IM Unknown Completed Yue Seybol d - External COVID-19 Vaccine(Pfizer)(12yrs +) Unknown Completed Yue Seybold - External Tdap- (Boostrix, Adacel) Unknown Completed Yue Seybold - External Influenza Virus Vaccine, High Dose, Age 65 And Up Unknown Completed Yue Seybold - External RSV, unspecified formulation Unknown Completed Yue Seybold - External Influenza Virus Vaccine, Quadrivalent, High Dose, Age 65 And Up Unknown Completed Yue S eybold - External RSV, Abrysvo Unknown Completed Yue Seybold - External Pneumococcal Vaccine, Conjugate 20 Unknown Completed Yue Seybold - External Covid-19 Vaccine (Pfizer), Mrna-lnp, Boris Protein, Pf, 30mcg/0.3ml,IM Unknown Completed Yue ybol d - External COVID-19 Vaccine(Pfizer)(12yrs +) Unknown Completed Yue Seybold - External Tdap- (Boostrix, Adacel) Unknown Completed Yue Seybold - External Influenza Virus Vaccine, High Dose, Age 65 And Up Unknown Completed Yue Seybold - External RSV, unspecified formulation Unknown Completed Yue Seybold - External Influenza Virus Vaccine, Quadrivalent, High Dose, Age 65 And Up Unknown Completed Yue S eybold - External RSV, Abrysvo Unknown Completed Yue Seybold - External Pneumococcal Vaccine, Conjugate 20 Unknown Completed Yue Seybold - External Covid-19 Vaccine (Pfizer), Mrna-lnp, Boris Protein, Pf, 30mcg/0.3ml,IM Unknown Completed Yue Seybol d - External COVID-19 Vaccine(Pfizer)(12yrs +) Unknown Completed Yue Seybold - External Tdap- (Boostrix, Adacel) Unknown Completed Yue Seybold - External Influenza Virus Vaccine, High Dose, Age 65 And Up Unknown Completed Yue Seybold - External RSV, unspecified formulation Unknown Completed Yue Seybold - External Influenza Virus Vaccine, Quadrivalent, High Dose, Age 65 And Up Unknown Completed Yue S eybold - External RSV, Abrysvo Unknown Completed Yue Seybold - External Pneumococcal Vaccine, Conjugate 20 Unknown Completed Yue Seybold - External Covid-19 Vaccine (Pfizer), Mrna-lnp, Boris Protein, Pf, 30mcg/0.3ml,IM Unknown Completed Yue Seybol d - External COVID-19 Vaccine(Pfizer)(12yrs +) Unknown Completed Yue Seybold - External Tdap- (Boostrix, Adacel) Unknown Completed Yue Seybold - External Influenza Virus Vaccine, High Dose, Age 65 And Up Unknown Completed Yue Seybold - External RSV, unspecified formulation Unknown Completed Yue Seybold - External Influenza Virus Vaccine, Quadrivalent, High Dose, Age 65 And Up Unknown Completed Yue S eybold - External RSV, Abrysvo Unknown Completed Yue Seybold - External Pneumococcal Vaccine, Conjugate 20 Unknown Completed Yue Seybold - External Covid-19 Vaccine (Pfizer), Mrna-lnp, Boris Protein, Pf, 30mcg/0.3ml,IM Unknown Completed Yue Seybol d - External COVID-19 Vaccine(Pfizer)(12yrs +) Unknown Completed Yue Seybold - External Tdap- (Boostrix, Adacel) Unknown Completed Yue Seybold - External Influenza Virus Vaccine, High Dose, Age 65 And Up Unknown Completed Yue Seybold - External RSV, unspecified formulation Unknown Completed Yue Seybold - External Influenza Virus Vaccine, Quadrivalent, High Dose, Age 65 And Up Unknown Completed Yue S eybold - External RSV, Abrysvo Unknown Completed Yue Seybold - External Pneumococcal Vaccine, Conjugate 20 Unknown Completed Yue Seybold - External Covid-19 Vaccine (Pfizer), Mrna-lnp, Boris Protein, Pf, 30mcg/0.3ml,IM Unknown Completed Yue Seybol d - External COVID-19 Vaccine(Pfizer)(12yrs +) Unknown Completed Yue Seybold - External Tdap- (Boostrix, Adacel) Unknown Completed Yue Seybold - External Influenza Virus Vaccine, High Dose, Age 65 And Up Unknown Completed Yue Seybold - External RSV, unspecified formulation Unknown Completed Yue Seybold - External Influenza Virus Vaccine, Quadrivalent, High Dose, Age 65 And Up Unknown Completed Yue Say balbold - External RSV, Abrysvo Unknown Completed Yuesoni Boykin - External Pneumococcal Vaccine, Conjugate 20 Unknown Completed Yue Ashutosh - External Covid-19 Vaccine (TrendU), Mrna-lnp, Boris Protein, Pf, 30mcg/0.3ml,IM Unknown Completed Yue Chandlerol d - External COVID-19 Vaccine(TrendU)(12yrs +) Unknown Completed Yue Ashutosh - External Tdap- (Boostrix, Adacel) Unknown Completed Yuesoni Boykin - External Vital Signs Vital Name Observation Time Observation Value Comments S ource Systolic blood pressure 2024-09-06 14:03:00 132 mm[Hg] Yue Joseph ld - External Diastolic blood pressure 2024-09-06 14:03:00 85 mm[Hg] Yue Chandlero ld - External Heart rate 2024-09-06 14:01:00 82 /min Miguel A mane Seybold - External Body temperature 2024-09-06 14:01:00 36.39 Bernarda Yue Lipscombybold - External Respiratory rate 2024-09-06 14:01:00 16 /min Yue Lipscombybold - External Body height 2024-09-06 14:01:00 160 cm Consuelo bal Seybold - External Body weight 2024-09-06 14:01:00 94.348 kg Consuelo bal Seybold - External BMI 2024-09-06 14:01:00 36.85 kg/m2 Consuelo bal Seybold - External Oxygen saturation in Arterial blood by Pulse oximetry 2024-09-06 14:01:00 96 /min Yue Chandlero ld - External Systolic blood pressure 2024-08-06 14:31:00 136 mm[Hg] Yue Chandlero ld - External Diastolic blood pressure 2024-08-06 14:31:00 80 mm[Hg] Yue Chandlero ld - External Heart rate 2024-08-06 14:31:00 132 /min Miguel A y Seybold - External Body temperature 2024-08-06 14:31:00 36.5 Bernarda Yue Lipscombybold - External Respiratory rate 2024-08-06 14:31:00 18 /min Yue Lipscombybold - External Body height 2024-08-06 14:31:00 167.6 cm Consuelo ey Seybold - External Body weight 2024-08-06 14:31:00 94.983 kg Consuelo ey Seybold - External BMI 2024-08-06 14:31:00 33.80 kg/m2 Consuelo ey Seybold - External Oxygen saturation in Arterial blood by Pulse oximetry 2024-08-06 14:31:00 93 /min Yue Seybo ld - External Systolic blood pressure 2024-06-04 14:38:00 139 mm[Hg] Yue Seybo ld - External Diastolic blood pressure 2024-06-04 14:38:00 76 mm[Hg] Yue Seybo ld - External Heart rate 2024-06-04 14:38:00 110 /min Kelse y Seybold - External Body temperature 2024-06-04 14:38:00 35.83 Bernarda Yue Seybold - External Respiratory rate 2024-06-04 14:38:00 18 /min Yue Seybold - External Body height 2024-06-04 14:38:00 167.6 cm Consuelo ey Seybold - External Body weight 2024-06-04 14:38:00 91.627 kg Consuelo ey Seybold - External BMI 2024-06-04 14:38:00 32.60 kg/m2 Consuelo ey Seybold - External Oxygen saturation in Arterial blood by Pulse oximetry 2024-06-04 14:38:00 94 /min Yue Seybo ld - External Systolic blood pressure 2024-02-04 15:06:00 140 mm[Hg] Yue Seybo ld - External Diastolic blood pressure 2024-02-04 15:06:00 79 mm[Hg] Yue Seybo ld - External Heart rate 2024-02-04 15:06:00 106 /min Kelse y Seybold - External Body temperature 2024-02-04 15:06:00 36.28 Bernarda Yue Seybold - External Respiratory rate 2024-02-04 15:06:00 19 /min Yue Seybold - External Body height 2024-02-04 15:06:00 167.6 cm Consuelo ey Seybold - External Body weight 2024-02-04 15:06:00 91.627 kg Consuelo ey Seybold - External BMI 2024-02-04 15:06:00 32.60 kg/m2 Consuelo ey Seybold - External Oxygen saturation in Arterial blood by Pulse oximetry 2024-02-04 15:06:00 100 /min Yue Chandlero ld - External Systolic blood pressure 2023-10-07 14:56:00 145 mm[Hg] Yue Seybo ld - External Diastolic blood pressure 2023-10-07 14:56:00 76 mm[Hg] Yue Seybo ld - External Heart rate 2023-10-07 14:56:00 77 /min Kelse y Seybold - External Body temperature 2023-10-07 14:56:00 36.33 Bernarda Yue Seybold - External Respiratory rate 2023-10-07 14:56:00 16 /min Yue Seybold - External Body height 2023-10-07 14:56:00 167.6 cm Consuelo ey Seybold - External Body weight 2023-10-07 14:56:00 95.255 kg Consuelo ey Seybold - External BMI 2023-10-07 14:56:00 33.89 kg/m2 Consuelo ey Seybold - External Oxygen saturation in Arterial blood by Pulse oximetry 2023-10-07 14:56:00 96 /min Yue Lipscombybo ld - External Systolic blood pressure 2023-07-07 14:48:00 129 mm[Hg] Yue Seybo ld - External Diastolic blood pressure 2023-07-07 14:48:00 78 mm[Hg] Yue Lipscombybo ld - External Heart rate 2023-07-07 14:48:00 91 /min Nahumse y Seybold - External Body temperature 2023-07-07 14:48:00 36.17 Bernarda Yue Seybold - External Respiratory rate 2023-07-07 14:48:00 27 /min Yue Seybold - External Body height 2023-07-07 14:48:00 167.6 cm Consuelo ey Seybold - External Body weight 2023-07-07 14:48:00 95.255 kg Consuelo ey Seybold - External BMI 2023-07-07 14:48:00 33.89 kg/m2 Consuelo ey Seybold - External Oxygen saturation in Arterial blood by Pulse oximetry 2023-07-07 14:48:00 100 /min Yue Seybo ld - External Systolic blood pressure 2023-05-06 16:53:00 130 mm[Hg] Yue Seybo ld - External Diastolic blood pressure 2023-05-06 16:53:00 80 mm[Hg] Yue Seybo ld - External Heart rate 2023-05-06 16:15:00 74 /min Kelse y Seybold - External Body temperature 2023-05-06 16:15:00 36.56 Bernarda Yue Seybold - External Respiratory rate 2023-05-06 16:15:00 20 /min Yue Seybold - External Body height 2023-05-06 16:15:00 167.6 cm Consuelo ey Seybold - External Body weight 2023-05-06 16:15:00 92.987 kg Consuelo ey Seybold - External BMI 2023-05-06 16:15:00 33.09 kg/m2 Consuelo ey Seybold - External Systolic blood pressure 2023-03-10 14:49:00 140 mm[Hg] Yue Seybo ld - External Diastolic blood pressure 2023-03-10 14:49:00 80 mm[Hg] Yue Seybo ld - External Heart rate 2023-03-10 14:37:00 81 /min Kelse y Seybold - External Body temperature 2023-03-10 14:37:00 36.33 Bernarda Yue Seybold - External Respiratory rate 2023-03-10 14:37:00 20 /min Yue Seybold - External Body height 2023-03-10 14:37:00 167.6 cm Consuelo ey Seybold - External Body weight 2023-03-10 14:37:00 93.441 kg Consuelo ey Seybold - External BMI 2023-03-10 14:37:00 33.25 kg/m2 Consuelo ey Seybold - External Oxygen saturation in Arterial blood by Pulse oximetry 2023-03-10 14:37:00 99 /min Yue Lipscombybo ld - External Body height 2023-03-07 14:35:00 167.6 cm Consuelo ey Seybold - External Body weight 2023-03-07 14:35:00 90.719 kg Consuelo ey Seybold - External BMI 2023-03-07 14:35:00 32.28 kg/m2 Consuelo ey Seybold - External Systolic blood pressure 2022-12-09 13:24:00 120 mm[Hg] Yue Seybo ld - External Diastolic blood pressure 2022-12-09 13:24:00 73 mm[Hg] Yue Seybo ld - External Heart rate 2022-12-09 13:24:00 82 /min Kelse y Seybold - External Body temperature 2022-12-09 13:24:00 36.61 Bernarda Yue Seybold - External Respiratory rate 2022-12-09 13:24:00 14 /min Yue Seybold - External Body height 2022-12-09 13:24:00 167.6 cm Consuelo ey Seybold - External Body weight 2022-12-09 13:24:00 94.802 kg Consuelo ey Seybold - External BMI 2022-12-09 13:24:00 33.73 kg/m2 Consuelo ey Seybold - External Oxygen saturation in Arterial blood by Pulse oximetry 2022-12-09 13:24:00 99 /min Yue Seybo ld - External Systolic blood pressure 2022-09-09 14:16:00 133 mm[Hg] Yue Seybo ld - External Diastolic blood pressure 2022-09-09 14:16:00 74 mm[Hg] Yue Seybo ld - External Heart rate 2022-09-09 14:16:00 86 /min Kelse y Seybold - External Body temperature 2022-09-09 14:16:00 36.11 Bernarda Yue Seybold - External Respiratory rate 2022-09-09 14:16:00 14 /min Yue Seybold - External Body height 2022-09-09 14:16:00 167.6 cm Consuelo ey Seybold - External Body weight 2022-09-09 14:16:00 94.802 kg Consuelo ey Seybold - External BMI 2022-09-09 14:16:00 33.73 kg/m2 Consuelo ey Seybold - External Oxygen saturation in Arterial blood by Pulse oximetry 2022-09-09 14:16:00 99 /min Yue Seybo ld - External Systolic blood pressure 2022-06-11 16:19:00 138 mm[Hg] Yue Chandlero ld - External Diastolic blood pressure 2022-06-11 16:19:00 72 mm[Hg] Yue Chandlero ld - External Heart rate 2022-06-11 15:23:00 79 /min Miguel A y Seybold - External Body temperature 2022-06-11 15:23:00 36.39 Bernarda Yue Lipscombybold - External Respiratory rate 2022-06-11 15:23:00 14 /min Yue Chandlerold - External Body height 2022-06-11 15:23:00 167.6 cm Consuelo ey Seybold - External Body weight 2022-06-11 15:23:00 92.534 kg Consuelo ey Seybold - External BMI 2022-06-11 15:23:00 32.93 kg/m2 Consuelo ey Seybold - External Oxygen saturation in Arterial blood by Pulse oximetry 2022-06-11 15:23:00 99 /min Yue Chandlero ld - External Procedures Procedure Date / Time Performed Performing Clinicia n Source [facility] 2022-06-11 16:41:33 Tami Yoder i Yue Chandlerold - External Encounters Start Date/Time End Date/Time Encounter Type Admission Type Attending [facility] Care Department Encounter ID Source 2024-12-06 09:00:00 2024-12-06 09:00:00 Outpatient ABEBA ACOSTA [id number] Yue Boykin 2024-11-24 09:20:00 2024-11-24 09:20:00 Outpatient JANIYA GAFFNEY [id number] Yue Boykin 2024-10-27 10:40:00 2024-10-27 10:40:00 Outpatient JANIYA GAFFNEY [id number] Yue Boykin 2024-10-05 11:30:00 2024-10-05 11:30:00 Outpatient ABEBA ACOSTA [id number] Yue Boykin 2024-10-01 13:15:00 2024-10-01 13:15:00 Outpatient IRISH LEBLANC [id number] Yue Seybold 2024-10-01 10:00:00 2024-10-01 10:00:00 Outpatient DELILAHSHON YUE [id number] Yue Seybold 2024-09-30 09:00:00 2024-09-30 09:00:00 Outpatient TIE, IRISH YUE PORTER [id number] Yue Seybold 2024-09-30 00:00:00 2024-09-30 00:00:00 Outpatient PREZAS, ABEBA YUE PORTER [id number] Yue Seybold 2024-09-30 00:00:00 2024-09-30 00:00:00 Outpatient TIE[facility] [id number] [facility] 10:00:00 2024-09-22 10:00:00 Outpatient UDOETUK, JANIYA [id number] [facility] 00:00:00 2024-09-22 00:00:00 Outpatient WILKENING, GRACIELA YUE PORTER [id number] [facility] 2024-09-14 00:00:00 2024-09-14 00:00:00 Outpatient PREZAS, ABEBA YUE PORTER [id number] [facility] 2024-09-10 00:00:00 2024-09-10 00:00:00 Outpatient TIE, IRISHLEONID PORTER [id number] [facility] 2024-09-08 10:45:00 2024-09-08 10:45:00 Outpatient MAC, EKG- YUE PORTER [id number] [facility] 2024-09-08 09:45:00 2024-09-08 09:45:00 Outpatient TIE, IRISH PORTER [id number] [facility] 2024-09-06 09:00:00 2024-09-06 09:00:00 Outpatient PREZAS, ABEBA YUE PORTER [id number] [facility] 2024-09-06 00:00:00 2024-09-06 00:00:00 Outpatient YUE PORTER [id number] [facility] 2024-09-01 08:05:00 2024-09-01 08:05:00 Outpatient [id number] YUE PORTER [id number] [facility] 2024-08-30 00:00:00 2024-08-30 00:00:00 Outpatient NARGIS LATHAM YUE PORTER [id number] [facility] 2024-08-30 00:00:00 2024-08-30 00:00:00 Outpatient YUE PORTER [id number] [facility] 2024-08-25 13:40:00 2024-08-25 13:40:00 Outpatient UDOET, JANIYA YUE PORTER [id number] [facility] 2024-08-25 13:30:00 2024-08-25 13:30:00 Outpatient 1, OPTICAL YUE PORTER [id number] Yue Ashutosh 2024-08-25 09:50:00 2024-08-25 09:50:00 Outpatient UDOETUK, JANIYA YUE PORTER [id number] [facility] 2024-08-23 09:50:00 2024-08-23 09:50:00 Outpatient UDOETUK, JANIYA [facility] [id number] [facility]24-08-06 09:30:00 2024-08-06 09:30:00 Outpatient PREZAS, ABEBA PORTER [id number] [facility] 2024-07-21 14:15:00 2024-07-21 14:15:00 Outpatient TIE, IRISH PORTER [id number] [facility] 2024-07-21 14:15:00 2024-07-21 14:15:00 Outpatient 1, OPTICAL YUE PORTER [id number] [facility] 2024-06-10 00:00:00 2024-06-10 00:00:00 Outpatient YUE PORTER [id number] [facility] 2024-06-07 00:00:00 2024-06-07 00:00:00 Outpatient PREZAS, ABEBA PORTER [id number] [facility] 2024-06-04 08:45:00 2024-06-04 08:45:00 Outpatient PREZASABEBA YUE [id number] [facility] 2024-06-03 00:00:00 2024-06-03 00:00:00 Outpatient PREZASABEBA YUE [id number] [facility] 2024-06-01 09:30:00 2024-06-01 09:30:00 Outpatient LAB90 YUE PORTER [id number] [facility] 2024-05-05 10:20:00 2024-05-05 10:20:00 Outpatient UDERICAJANIYA VENTURA YUE PORTER [id number] [facility] 2024-05-05 09:35:00 2024-05-05 09:35:00 Outpatient 1 KUNAL PORTER [id number] [facility] 2024-05-04 00:00:00 2024-05-04 00:00:00 Outpatient PREZASABEBA YUE PORTER [id number] [facility] 2024-04-06 00:00:00 2024-04-06 00:00:00 Outpatient PREZASABEBA YUE PORTER [id number] [facility] 2024-03-31 00:00:00 2024-03-31 00:00:00 Outpatient MD YUE JOHNSON [id number] [facility] 2024-03-03 00:00:00 2024-03-03 00:00:00 Outpatient PREZASABEBA YUE PORTER [id number] [facility] 2024-02-09 13:10:00 2024-02-09 13:10:00 Outpatient UDOETJANIYA VENTURA YUE PORTER [id number] [facility]ue [facility] 2024-02-09 12:45:00 2024-02-09 12:45:00 Outpatient 1 KUNAL PORTER [id number] [facility] 2024-02-09 11:00:00 2024-02-09 11:00:00 Outpatient GRACIELA DUNN [id number] [facility] 2024-02-04 10:00:00 2024-02-04 10:00:00 Outpatient PREZAS, ABEBA PORTER YUE [id number] [facility] 2024-02-02 00:00:00 2024-02-02 00:00:00 Outpatient PREZAS, ABEBA PORTER YUE [id number] [facility] 2024-01-30 10:00:00 2024-01-30 10:00:00 Outpatient LAB90 YUE PORTER [id number] [facility] 2024-01-28 09:50:00 2024-01-28 09:50:00 Outpatient UDOETUK, JANIYA YUE PORTER [id number] [facility] 2024-01-26 00:00:00 2024-01-26 00:00:00 Outpatient PREZAS, ABEBA YUE PORTER [id number] [facility] 2023-12-07 00:00:00 2023-12-07 00:00:00 Outpatient OCAMPO ANDRA YUE PORTER [id number] [facility] 2023-12-05 10:00:00 2023-12-05 10:00:00 Outpatient UDOETUK, JANIYA YUE PORTER [id number] [facility] 2023-12-03 09:40:00 2023-12-03 09:40:00 Outpatient UDOETUK, JANIYA YUE PORTER [id number] [facility] 2023-11-24 00:00:00 2023-11-24 00:00:00 Outpatient PREZAS, ABEBA YUE PORTER [id number] [facility] 2023-10-27 00:00:00 2023-10-27 00:00:00 Outpatient PREZAS, ABEBA YUE PORTER [id number] [facility] 2023-10-13 00:00:00 2023-10-13 00:00:00 Outpatient PREZAS, ABEBA YUE PORTER [id number] [facility] 2023-10-08 08:50:00 2023-10-08 08:50:00 Outpatient UDOETUK, JANIYA PORTER [id number] [facility] 2023-10-07 10:00:00 2023-10-07 10:00:00 Outpatient PREZAS, ABEBA PORTER YUE [id number] [facility] 2023-09-15 00:00:00 2023-09-15 00:00:00 Outpatient PREZAS, ABEBA PORTER YUE [id number] [facility] 2023-09-13 00:00:00 2023-09-13 00:00:00 Outpatient PREZAS, ABEBA PORTER YUE [id number] [facility] 2023-09-03 00:00:00 2023-09-03 00:00:00 Outpatient PREZAS, ABEBA PORTER YUE [id number] [facility] 2023-09-01 00:00:00 2023-09-01 00:00:00 Outpatient PREZAS, ABEBA PORTER YUE [id number] [facility] 2023-08-22 09:35:00 2023-08-22 09:35:00 Outpatient LAB90 YUE PORTER [id number] [facility] 2023-08-13 09:55:00 2023-08-13 09:55:00 Outpatient 1, OPTICAL YUE PORTER [id number] [facility] 2023-08-13 09:50:00 2023-08-13 09:50:00 Outpatient ESHAERICAJANIYA VENTURA YUE PORTER [id number] [facility] 2023-08-05 14:00:00 2023-08-05 14:00:00 Outpatient GRACIELA DUNN [id number] [facility] 2023-08-05 13:00:00 2023-08-05 13:00:00 Outpatient VF51 YUE PORTER [id number] [facility] 2023-08-04 00:00:00 2023-08-04 00:00:00 Outpatient PREZAS, ABEBA YUE PORTER [id number] [facility] 2023-08-04 00:00:00 2023-08-04 00:00:00 Outpatient PREZAS, ABEBA YUE PORTER [id number] [facility] 2023-07-28 00:00:00 2023-07-28 00:00:00 Outpatient PREZAS, ABEBA YUE PORTER [id number] [facility] 2023-07-22 00:00:00 2023-07-22 00:00:00 Outpatient PREZAS, ABEBA YUE PORTER [id number] [facility] 2023-07-20 00:00:00 2023-07-20 00:00:00 Outpatient BEBATAMI YUE PORTER [id number] [facility] 2023-07-17 00:00:00 2023-07-17 00:00:00 Outpatient TAMI YODER YUE PORTER [id number] [facility] 2023-07-16 00:00:00 2023-07-16 00:00:00 Outpatient YUE PORTER [id number] [facility] 2023-07-11 00:00:00 2023-07-11 00:00:00 Outpatient PREZASNATAABEBAVIDAL PORTER [id number] [facility] 2023-07-09 14:20:00 2023-07-09 14:20:00 Outpatient JANIYA GAFFNEY [id number] [facility] 2023-07-08 11:20:00 2023-07-08 11:20:00 Outpatient GRACIELA DUNN [id number] [facility] 2023-07-08 10:00:00 2023-07-08 10:00:00 Outpatient TRUDY PORTER [id number] [facility] 2023-07-07 09:00:00 2023-07-07 09:00:00 Outpatient PREZAS, ABEBA YUE PORTER [id number] [facility] 2023-07-02 10:20:00 2023-07-02 10:20:00 Outpatient UDALYSSIATJANIYA VENTURA [id number] [facility] 2023-06-06 00:00:00 2023-06-06 00:00:00 Outpatient PREZAS, ABEBA OPRTER [id number] [facility] 2023-05-23 00:00:00 2023-05-23 00:00:00 Outpatient PREZAS, ABEBA YUE PORTER [id number] [facility] 2023-05-22 08:50:00 2023-05-22 08:50:00 Outpatient EDGAR YUE PORTER [id number] [facility] 2023-05-21 09:30:00 2023-05-21 09:30:00 Outpatient UDOETJANIYA VENTURA [id number] [facility] 2023-05-16 10:45:00 2023-05-16 10:45:00 Outpatient ADALBERTO GALINDO [id number] [facility] 2023-05-16 00:00:00 2023-05-16 00:00:00 Outpatient PREZAS, ABEBA YUE PORTER [id number] [facility] 2023-05-09 09:15:00 2023-05-09 09:15:00 Outpatient PREZAS, ABEBAVIDAL PORTER [id number] [facility] 2023-05-06 10:00:00 2023-05-06 10:00:00 Outpatient PREZASABEBA YUE PORTER [id number] [facility] 2023-04-17 00:00:00 2023-04-17 00:00:00 Outpatient PREZASABEBA YUE PORTER [id number] [facility] 2023-04-09 10:00:00 2023-04-09 10:00:00 [facility] [id number] [facility]23-[facility]-09 09:20:00 2023-04-09 09:20:00 Outpatient KUNAL Manning [id number] [facility] 2023-03-12 11:20:00 2023-03-12 11:20:00 Outpatient LEDYTJANIYA VENTURA [id number] [facility] 2023-03-10 14:30:00 2023-03-10 14:30:00 Outpatient ADALBERTO GALINDO [id number] [facility] 2023-03-10 08:45:00 2023-03-10 08:45:00 Outpatient PREZANATA DealAND YUE YUE [id number] [facility] 2023-03-07 10:15:00 2023-03-07 10:15:00 Outpatient ADALBERTO GALINDO YUE [id number] [facility] 2023-03-07 10:10:00 2023-03-07 10:10:00 Outpatient YUE YUE [id number] [facility] 2023-03-07 10:05:00 2023-03-07 10:05:00 Outpatient YUE YUE [id number] [facility] 2023-03-06 00:00:00 2023-03-06 00:00:00 Outpatient PREZASABEBA YUE PORTER [id number] [facility] 2023-02-18 00:00:00 2023-02-18 00:00:00 Outpatient PREZAABEBA Deal [facility] [id number] [facility]23-02-14 00:00:00 2023-02-14 00:00:00 Outpatient YUE YUE [id number] [facility] 2023-02-13 00:00:00 2023-02-13 00:00:00 Outpatient PREZAS, ABEBA YUE PORTER [id number] [facility] 2023-02-12 10:10:00 2023-02-12 10:10:00 Outpatient JANIYA GAFFNEY [facility] [id number] [facility] 2023-02-11 00:00:00 2023-02-11 00:00:00 Outpatient PREZAABEBA Deal YUE PORTER [id number] [facility] 2023-02-07 00:00:00 2023-02-07 00:00:00 Outpatient PREZAS, ABEBA YUE PORTER [id number] [facility] 2023-02-07 00:00:00 2023-02-07 00:00:00 Outpatient PREZASNATAABEBAVIDAL PORTER [id number] [facility] 2023-01-18 00:00:00 2023-01-18 00:00:00 Outpatient PREZAS, ABEBA PORTER [id number] [facility] 2023-01-16 00:00:00 2023-01-16 00:00:00 Outpatient YUE PORTER [id number] [facility] 2023-01-15 08:00:00 2023-01-15 08:00:00 Outpatient JANIYA GAFFNEY YUE PORTER [id number] [facility] 2023-01-15 08:00:00 2023-01-15 08:00:00 Outpatient 1, KUNAL YUE PORTER [id number] [facility] 2023-01-14 00:00:00 2023-01-14 00:00:00 Outpatient PREZAS, ABEBA YUE PORTER [id number] [facility] 2023-01-13 00:00:00 2023-01-13 00:00:00 Outpatient PREZAS, ABEBA PORTER [id number] [facility] 2023-01-09 00:00:00 2023-01-09 00:00:00 Outpatient PREZAS, ABEBA YUE PORTER [id number] [facility] 2023-01-08 11:40:00 2023-01-08 11:40:00 Outpatient LAB90 YUE PORTER [id number] [facility] 2023-01-07 09:20:00 2023-01-07 09:20:00 Outpatient GRACIELA DUNN [id number] [facility] 2023-01-07 08:45:00 2023-01-07 08:45:00 Outpatient TOMOGRAPHY, YVES PORTER [id number] [facility] 2022-12-30 00:00:00 2022-12-30 00:00:00 Outpatient PREZAS, ABEBA YUE PORTER [id number] [facility] 2022-12-27 00:00:00 2022-12-27 00:00:00 Outpatient YUE PORTER [id number] [facility] 2022-12-26 00:00:00 2022-12-26 00:00:00 Outpatient YUE PORTER [id number] [facility] 2022-12-25 00:00:00 2022-12-25 00:00:00 Outpatient YUE YUE [id number] [facility] 2022-12-25 00:00:00 2022-12-25 00:00:00 Outpatient PREZAABEBA Deal YUE [id number] [facility] 2022-12-23 00:00:00 2022-12-23 00:00:00 Outpatient PREZAABEBA Deal YUE [id number] [facility] 2022-12-20 00:00:00 2022-12-20 00:00:00 Outpatient PREZAABEBA Deal YUE [id number] [facility] 2022-12-20 00:00:00 2022-12-20 00:00:00 Outpatient PREZASABEBA YUE PORTER [id number] [facility] 2022-12-18 00:00:00 2022-12-18 00:00:00 Outpatient YUE PORTER [id number] [facility] 2022-12-13 00:00:00 2022-12-13 00:00:00 Outpatient PREABEBA JAUREGUI YUE PORTER [id number] [facility] 2022-12-11 00:00:00 2022-12-11 00:00:00 Outpatient YUE PORTER [id number] [facility] 2022-12-10 00:00:00 2022-12-10 00:00:00 Outpatient YUE PORTER [id number] [facility] 2022-12-09 08:30:00 2022-12-09 08:30:00 Outpatient ABEBA ACOSTA YUE PORTER [id number] [facility] 2022-11-07 00:00:00 2022-11-07 00:00:00 Outpatient DAVE ABEBA YUE PORTER [id number] [facility] 2022-11-01 00:00:00 2022-11-01 00:00:00 Outpatient TAMI YODER [id number] [facility] 2022-10-23 00:00:00 2022-10-23 00:00:00 Outpatient ABEBA ACOSTA YUE PORTER [id number] [facility] 2022-10-08 00:00:00 2022-10-08 00:00:00 Outpatient YUE PORTER [id number] [facility] Ashutosh 2022-10-08 00:00:00 2022-10-08 00:00:00 Outpatient YUE PORTER [id number] [facility] Ashutosh 2022-10-07 00:00:00 2022-10-07 00:00:00 Outpatient PREZASABEBA YUE [id number] [facility] 2022-10-07 00:00:00 2022-10-07 00:00:00 Outpatient PREZAS, ABEBA YUE PORTER [id number] [facility] 2022-10-04 00:00:00 2022-10-04 00:00:00 Outpatient PREZAS, ABEBA YUE PORTER [id number] [facility] 2022-10-02 00:00:00 2022-10-02 00:00:00 Outpatient SISSY MIGUEL YUE PORTER [id number] [facility] 2022-09-12 00:00:00 2022-09-12 00:00:00 Outpatient PREZAS, ABEBA YUE PORTER [id number] [facility] 2022-09-10 00:00:00 2022-09-10 00:00:00 Outpatient PREZAS, ABEBA YUE PORTER [id number] [facility] 2022-09-09 10:00:00 2022-09-09 10:00:00 Outpatient LAB90 YUE PORTER [id number] [facility] 2022-09-09 09:15:00 2022-09-09 09:15:00 Outpatient PREZASABEBA YUE PORTER [id number] [facility] 2022-09-09 00:00:00 2022-09-09 00:00:00 Outpatient YUE PORTER [id number] [facility] 2022-06-27 00:00:00 2022-06-27 00:00:00 Outpatient TAMI YODER [id number] [facility] 2022-06-25 00:00:00 2022-06-25 00:00:00 Outpatient TAMI YODER YUE [id number] [facility] 2022-06-17 00:00:00 2022-06-17 00:00:00 Outpatient TAMI YODER YUE [id number] [facility] 2022-06-13 15:10:00 2022-06-13 15:10:00 Outpatient LAB90 YUE YUE [id number] [facility] 2022-06-12 00:00:00 2022-06-12 00:00:00 Outpatient TAMI YODER YUE [id number] [facility] 2022-06-11 10:35:00 2022-06-11 10:35:00 Outpatient LAB90 YUE YUE [id number] [facility] 2022-06-11 09:30:00 2022-06-11 09:30:00 Outpatient TAMI YODER YUE PORTER [id number] [facility] Results Test Description Test Time Test Comments Results Result Co mments Source [facility] - External Notes Date/Time Note Provider Source 2024-09-06 09:04:20 Chief Complaint Patient presents with Physical HRA Ezio Stafford MA [facility] 2024-08-06 09:35:00 Chief Complaint Patient presents with Cough Patient complains of cold symptoms for over 2 months Ezio Stafford MA [facility] 2023-10-07 10:00:12 A1C Collected: 08/22/2023 resulted 7.3 [facility]
--- NOTE | 2024-10-01 12:20 | RAD REPORT ---
EXAM: Chest Single View HISTORY: 69 years Male dizzy COMPARISON: None. FINDINGS: LUNGS/PLEURA: The lungs are clear. No pleural effusions or pneumothorax. No pulmonary edema. CARDIAC/MEDIASTINUM: Magnified by portable technique, but possibly within normal limits. UPPER ABDOMEN: No significant abnormality. BONES: No acute abnormality. LINES/TUBES/OTHER: N/A IMPRESSION: No evidence of acute cardiopulmonary disease.
[2024-10-01 12:28] LABS: Absolute Eosinophils 0.2 K/uL (0-0.5); Absolute Monocytes 0.6 K/uL (0.1-1.3); Absolute Neutrophil 5.2 K/uL (1.8-8.0); Basophils % 0.3 % (0-1.3); Eosinophils % 2.4 % (0-4.4); Hematocrit 47.4 % (39.6-49.0); Hemoglobin 15.9 g/dL (13.6-17.9); Lymphocytes % 25.1 % (15.3-44.8); MCH 29.3 pg (27.0-35.0); MCHC 33.6 g/dL (32.0-36.0); MCV 87.1 fL (80-100); MPV 8.7 fL (7.6-11.3); Monocytes % 7.3 % (3.3-12.3); Neutrophils % 64.9 % (41.7-73.7); Nucleated Red Blood Cells % 0.2 % (0-0); Platelets 238 thou/uL (152-406); RBC Red Blood Cell Count 5.44 M/uL (4.33-5.43); Red Cell Distribution Width 15.5 % (12.1-15.2)
[2024-10-01 12:30] LABS: PT Prothrombin Time 11.3 SECONDS (10-13.0); Protime INR 0.99
[2024-10-01 12:43] LABS: Anion Gap 13.9 mEq/L (5.0-15.0); Potassium 3.9 mEq/L (3.5-5.1); Troponin High Sensitivity 21.8 pg/mL (<58.9)
[2024-10-01] MEDS ORDERED: AMIODARONE HCL 150 MG/3 ML INJ IV ONE (12:43)
[2024-10-01] MEDS ORDERED: AMIODARONE IN DEXTROSE,ISO-OSM 360 MG/200 ML BAG IV ONE (12:44)
--- NOTE | 2024-10-01 12:58 | EDPHYS ---
Physician Documentation [facility] Name: Sawyer Beltran Age: 69 yrs Sex: Male : 1955 Arrival Date: 10/01/2024 Time: 11:25 Bed 2 Private MD: ED Physician Jori Carlson HPI: 10/01 11:49 This 69 yrs old Male presents to ER via Unassigned with complaints of High Blood rn Pressure, Irregular EKG- Sent From Dr. Mercado. 11:49 Patient sent in by PCP, Dr. Mercado, for abnormal EKG. Was seen at another physician's rn informatics yesterday, abnormal EKG noted but patient was grossly asymptomatic so sent home and told to follow-up with cardiology. Went to PCPs office today instead. Reports mild dizziness and high blood pressure but otherwise denies dyspnea or chest pain. No focal neurological deficit.. Historical: - Allergies: 12:02 Ampicillin; iw - PMHx: 12:02 Hypertensive disorder; Hypercholesterolemia; glaucoma; Diabetes mellitus; iw - Immunization history:: Adult Immunizations up to date. - Family history:: not pertinent. - Hospitalizations: : No recent hospitalization is reported. ROS: 11:49 Constitutional: Negative for fever, chills, and weight loss, Cardiovascular: Negative rn for chest pain, palpitations, and edema, Respiratory: Negative for shortness of breath, cough, wheezing, and pleuritic chest pain, Abdomen/GI: Negative for abdominal pain, nausea, vomiting, diarrhea, and constipation, MS/Extremity: Negative for injury and deformity, Neuro: Negative for headache, weakness, numbness, tingling, and seizure, Exam: 11:49 Constitutional: This is a well developed, well nourished patient who is awake, alert, rn and in no acute distress. Cardiovascular: Regular rate and rhythm. No pulse deficits. Respiratory: No increased work of breathing, no retractions or nasal flaring. Abdomen/GI: Soft, non-tender MS/ Extremity: Pulses equal, no cyanosis. Neurovascular intact. Full, normal range of motion. Equal circumference. Neuro: Awake and alert, GCS 15 13:13 ECG was reviewed by the Attending Physician. rn Vital Signs: 12:01 BP 156 / 92; Pulse 120; Resp 19; Pulse Ox 95% on R/A; Weight 92.53 kg; Height 5 ft. 6 iw in. ; 13:13 BP 150 / 98; Pulse 99; Resp 16; Pulse Ox 92% ; bp 14:00 BP 161 / 14; Pulse 105; Resp 15; Pulse Ox 93% ; bp 15:00 BP 153 / 96; Pulse 97; Resp 15; Pulse Ox 92% ; bp 16:00 BP 144 / 95; Pulse 93; Resp 18; Pulse Ox 90% ; bp 12:01 Body Mass Index 32.93 (92.53 kg, 167.64 cm) iw MDM: 11:37 Medical Screening Exam initiated rn 12:55 Differential diagnosis: hypertensive crisis, Malignant HTN, Arrhythmia. Data reviewed: rn vital signs, nurses notes, lab test result(s), EKG, radiologic studies, plain films, and as a result, I will admit patient. Consideration of Admission/Observation Patient was admitted/placed on observation. Escalation of care including admission/observation considered. Management of patient was discussed with the following: Beef Selector: Discussed case with Dr. Garcia, requests amiodarone loading dose as well as drip.. Counseling: I had a detailed discussion with the patient and/or guardian regarding the historical points, exam findings, and any diagnostic results supporting the discharge/admit diagnosis, lab results, radiology results, the need for further work-up and treatment in the hospital. Response to treatment: the patient's symptoms have mildly improved after treatment. 10/01 11:38 Order name: Basic Metabolic Panel; Complete Time: 12:44 rn 10/01 11:38 Order name: CBC with Diff; Complete Time: 12:37 rn 10/01 11:38 Order name: Magnesium; Complete Time: 12:44 rn 10/01 11:38 Order name: NT PRO-BNP; Complete Time: 12:44 rn 10/01 11:38 Order name: PT-INR; Complete Time: 12:37 rn 10/01 11:38 Order name: Troponin HS; Complete Time: 12:44 rn 10/01 13:59 Order name: T4 Free [facility] 10/01 13:59 Order name: Thyroid Stimulating Hormone [facility] 10/01 13:59 Order name: Basic Metabolic Panel [facility] 10/01 13:59 Order name: Basic Metabolic Panel [facility] 10/01 13:59 Order name: Basic Metabolic Panel [facility] 10/01 13:59 Order name: Basic Metabolic Panel ED[facility] 10/01 13:59 Order name: Basic Metabolic Panel EDMS 05 13:59 Order name: Basic Metabolic Panel EDMS 10/01 13:59 Order name: CBC with Automated Diff EDMS 05 13:59 Order name: CBC with Automated Diff EDMS 10/01 13:59 Order name: CBC with Automated Diff EDMS 10/01 13:59 Order name: CBC with Automated Diff EDMS 10/01 13:59 Order name: CBC with Automated Diff EDMS 10/01 13:59 Order name: CBC with Automated Diff EDMS 10/01 13:59 Order name: Lipid Profile EDMS 10/01 13:59 Order name: Lipid Profile EDMS 10/01 13:59 Order name: Magnesium EDMS 05 13:59 Order name: Magnesium EDMS 10/01 13:59 Order name: Magnesium EDMS 10/01 13:59 Order name: Magnesium EDMS 10/01 13:59 Order name: Magnesium EDMS 10/01 13:59 Order name: Magnesium EDMS 10/01 13:59 Order name: Phosphorus EDMS 10/01 13:59 Order name: Phosphorus EDMS 05 13:59 Order name: Phosphorus EDMS 10/01 13:59 Order name: Phosphorus EDMS 10/01 13:59 Order name: Phosphorus EDMS 10/01 13:59 Order name: Phosphorus EDMS 10/01 13:59 Order name: Troponin High Sensitivity EDMS 10/01 13:59 Order name: Troponin High Sensitivity EDMS 10/01 13:59 Order name: Troponin High Sensitivity EDMS 10/01 11:38 Order name: XRAY Chest (1 view); Complete Time: 12:21 rn 10/01 14:00 Order name: Echo with Doppler EDMS 10/01 11:38 Order name: Cardiac monitoring; Complete Time: 12:17 rn 10/01 11:38 Order name: EKG - Nurse/Tech; Complete Time: 12:17 rn 10/01 11:38 Order name: IV Saline Lock; Complete Time: 12:17 rn 10/01 11:38 Order name: Labs collected and sent; Complete Time: 12:17 rn 10/01 11:38 Order name: O2 Per Protocol; Complete Time: 12:09 rn 10/01 11:38 Order name: O2 Sat Monitoring; Complete Time: 12:09 rn EC:13 Rate is 120 beats/min. Rhythm is regular. QRS interval is prolonged at 128 msec. QT rn interval is normal. No Q waves. T waves are Normal. No ST changes noted. Clinical impression: Atrial Flutter. Interpreted by me. Reviewed by me. Administered Medications: 12:45 Drug: amiodarone IVPB 150 mg 100 ml IVPB once over 10 mins; (mix in D5W) Volume: 100 bp ml; Route: IVPB; Infused Over: 10 mins; Site: right forearm; 15:37 Follow up: IV Status: Completed infusion bp 12:45 Drug: amiodarone IVPB 900 mg, D5W IV 500 ml IVPB at 1 mg/min continuous; for 6 hrs, bp then change to 0.5 mg/min Route: IVPB; Rate: 1 mg/min; Site: right forearm; Disposition Summary: 10/01/24 12:57 Hospitalization Ordered Notes: Hospitalization Status: Inpatient Admission rn Provider: Sunny Carlson rn Condition: Stable rn Problem: new rn Symptoms: have improved rn Bed/Room Type: Standard rn Location: Intensive Care Unit(10/01/24 15:45) eb Room Assignment: 1-(10/01/24 15:45) eb Diagnosis - Unspecified atrial flutter rn - Dizziness and giddiness rn Forms: - Medication Reconciliation Form rn - SBAR form rn - Leadership Thank You Letter gallery intern time excluding procedures: 12:55 Critical care time: Bedside Care: 25 minutes, Consultation: 10 minutes. Total time: 35 rn minutes Signatures: Dispatcher [employer] EDAdenike Block RN RN Jori Carlson MD MD rn Peltier, Brian RN RN Dariela Buck Lauren RN RN ld1 Corrections: (The following items were deleted from the chart) 11:38 11:38 Chest Single View+[email or web address] ordered. EDDE EDMS 15:45 12:57 Telemetry/MedSurg (Inpatient) rn eb 15:45 12:57 rn eb
--- NOTE | 2024-10-01 12:58 | ER ---
Nurse's Notes [facility] Name: Sawyer Beltran Age: 69 yrs Sex: Male : 1955 Arrival Date: 10/01/2024 Time: 11:25 Bed 2 Private MD: Diagnosis: Unspecified atrial flutter;Dizziness and giddiness Presentation: 10/01 12:01 Chief complaint: Patient states: sent by Dr Mercado because his HR was high and his BP iw was high also, was due to have eye surgery. Coronavirus screen: At this time, the client does not indicate any symptoms associated with coronavirus-19. Ebola Screen: No symptoms or risks identified at this time. Initial Sepsis Screen: Does the patient meet any 2 criteria? HR > 90 bpm. Does the patient have a suspected source of infection? No. Patient's initial sepsis screen is negative. Risk Assessment: Do you want to hurt yourself or someone else? Patient reports no desire to harm self or others. Onset of symptoms was October 01, 2024. 12:01 Method Of Arrival: Ambulatory iw 12:01 Acuity: AMAN 2 iw Triage Assessment: 12:56 General: Appears in no apparent distress. comfortable, Behavior is calm, cooperative, bp appropriate for age. Pain: Denies pain. Historical: - Allergies: 12:02 Ampicillin; iw - PMHx: 12:02 Hypertensive disorder; Hypercholesterolemia; glaucoma; Diabetes mellitus; iw - Immunization history:: Adult Immunizations up to date. - Family history:: not pertinent. - Hospitalizations: : No recent hospitalization is reported. Screenin:[facility] ED Fall Risk Assessment (Adult) History of falling in the last 3 months, bp including since admission No falls in past 3 months (0 pts) Confusion or Disorientation No (0 pts) Intoxicated or Sedated No (0 pts) Impaired Gait No (0 pts) Mobility Assist Device Used No (0 pt) Altered Elimination No (0 pt) Score/Fall Risk Level 0 - 2 = Low Risk Oriented to surroundings. Abuse screen: Denies threats or abuse. Denies injuries from another. Nutritional screening: No deficits noted. Tuberculosis screening: No symptoms or risk factors identified. Assessment: 11:50 Reassessment: Patient appears in no apparent distress at this time. Patient is alert, bp oriented x 3, equal unlabored respirations, skin warm/dry/pink. General: Appears in no apparent distress. comfortable, Behavior is calm, cooperative, appropriate for age. Cardiovascular: Rhythm is atrial fibrillation with rapid ventricular response. 13:14 Reassessment: Patient appears in no apparent distress at this time. Patient is alert, bp oriented x 3, equal unlabored respirations, skin warm/dry/pink. Cardiovascular: Rhythm is atrial fibrillation. 14:00 Reassessment: Patient appears in no apparent distress at this time. Patient is alert, bp oriented x 3, equal unlabored respirations, skin warm/dry/pink. 16:00 Reassessment: No changes from previously documented assessment. Patient is alert, bp oriented x 3, equal unlabored respirations, skin warm/dry/pink. Vital Signs: 12:01 BP 156 / 92; Pulse 120; Resp 19; Pulse Ox 95% on R/A; Weight 92.53 kg; Height 5 ft. 6 iw in. ; 13:13 BP 150 / 98; Pulse 99; Resp 16; Pulse Ox 92% ; bp 14:00 BP 161 / 14; Pulse 105; Resp 15; Pulse Ox 93% ; bp 15:00 BP 153 / 96; Pulse 97; Resp 15; Pulse Ox 92% ; bp 16:00 BP 144 / 95; Pulse 93; Resp 18; Pulse Ox 90% ; bp 12:01 Body Mass Index 32.93 (92.53 kg, 167.64 cm) iw ED Course: 11:34 Patient arrived in ED. cj3 11:37 Jori Carlson MD is Attending Physician. rn 11:50 Patient has correct armband on for positive identification. bp 11:50 Initial lab(s) drawn, by me, sent to lab. EKG done, by ED staff, reviewed by Sunny Carlson MD. Inserted saline lock: 22 gauge in right forearm, using aseptic technique. Blood collected. Flushed with 10 mL NS. 12:02 Triage completed. iw 12:09 Angy Walter, DEVENDRA is Primary Nurse. ld1 12:10 XRAY Chest (1 view) In Process Unspecified. EDMS 12:56 Arm band placed on. bp 12:57 Sunny Carlson MD is Hospitalizing Provider. rn 17:12 No provider procedures requiring assistance completed. Patient admitted, IV remains in ld1 place. Administered Medications: 12:45 Drug: amiodarone IVPB 150 mg 100 ml IVPB once over 10 mins; (mix in D5W) Volume: 100 bp ml; Route: IVPB; Infused Over: 10 mins; Site: right forearm; 15:37 Follow up: IV Status: Completed infusion bp 12:45 Drug: amiodarone IVPB 900 mg, D5W IV 500 ml IVPB at 1 mg/min continuous; for 6 hrs, bp then change to 0.5 mg/min Route: IVPB; Rate: 1 mg/min; Site: right forearm; Medication: 17:13 VIS not applicable for this client. ld1 Outcome: 12:57 Decision to Hospitalize by Provider. rn 17:12 Admitted to ICU accompanied by nurse, accompanied by tech, room 1, Report called to mario Burton RN 17:12 Condition: stable 17:12 Instructed on the need for admit, 17:13 Patient left the ED. ld1 Signatures: Dispatcher [employer] Adenike Newman RN RN Jori Carlson MD MD rn Peltier, Brian, RN RN bp Sims, Lauren, RN RN Dacia Bynum 3
[2024-10-01] MEDS ORDERED: AMIODARONE HCL 450 MG in D5W 241 ML IV SCH (14:00)
--- NOTE | 2024-10-01 14:01 | P.HP ---
Certification for Inpatient Patient admitted to: Inpatient With expected LOS: >2 Midnights Patient will require the following post-hospital care: None Practitioner: I am a practitioner with admitting privileges, knowledge of patient current condition, hospital course, and medical plan of care. Services: Services provided to patient in accordance with Admission requirements found in Title 42 Section 412.3 of the Code of Federal Regulations Patient History Date of Service: 10/01/24 Reason for admission: symptomatic Aflutter History of Present Illness: Sawyer Beltran is a 69 year old male with pmhx Hypertensive disorder; Hypercholesterolemia; glaucoma; Diabetes mellitus who presents to the ED from his PCP office with an abnormal EKG. He reports going for eye surgery and his EKG was abnormal with recommendations to see cardiology but he went to his PCP office instead because he did not have any symptoms. Dr. Mercado recommended coming to the ED, now with dizzinees and high blood pressure. Dr. Garcia consulted and recommended amiodarone gtt with a bolus. Laboratory evaluation significant for BNP 583, GFR is 68, serum glucose 171. EKG representing atrial flutter heart rate 120. Chest x-ray reports "No evidence of acute cardiopulmonary disease." Sawyer will be admitted to hospitalist service for further treatment of atrial flutter. Allergies ampicillin Allergy (Verified 10/01/24 14:48) Anaphylaxis Home Medications: Amlodipine Besylate 10 mg PO DAILY 10/01/24 Aspirin 325 mg PO DAILY 10/01/24 Atorvastatin Calcium 10 mg PO DAILY 10/01/24 Docosahexanoic AC/Epa [Fish Oil 1,000 MG*] 1,000 mg PO DAILY 10/01/24 Dorzolamide HCl/Pf [Dorzolamide 2% Eye Drop] 1 drop OPTH BID 10/01/24 Empagliflozin [Jardiance] 10 mg PO DAILY 10/01/24 Fexofenadine HCl 180 mg PO DAILY 10/01/24 Gabapentin 300 mg PO TID PRN 10/01/24 Insulin Glargine,Hum.rec.anlog [Lantus Solostar] 60 units SQ BID 10/01/24 Ketorolac Tromethamine 1 drop OP QID 10/01/24 Meloxicam 15 mg PO DAILY 10/01/24 Metformin HCl 1,000 mg PO BID 10/01/24 Moxifloxacin HCl [Moxifloxacin] 3 ml OP QID 10/01/24 Prednisolone Acetate/Pf [Prednisolone Acet 1% Eye Drop] 1 drop OP QID 10/01/24 Valsartan/Hydrochlorothiazide [Valsartan-Hctz 320-25 mg Tab] 1 tab PO DAILY 10/01/24 - Past Medical/Surgical History -: Hypertension -: Hypercholesterolemia -: Glaucoma -: Diabetes mellitusIDDM Past Surgical History: Reviewed- Non-Contributory - Family History Mother -: Heart disease (Rheumatic fever) - Social History Smoking Status: Never smoker Alcohol use: No CD- Drugs: No Review of Systems Other: Per HPI Physical Examination - Physical Exam General: Alert, In no apparent distress, Oriented x3 HEENT: Atraumatic, Normocephalic, PERRLA Neck: Supple, 2+ carotid pulse no bruit Respiratory: Clear to auscultation bilaterally, Normal air movement Cardiovascular: Normal pulses, Normal S1 S2, Irregular heart rate/rhythm Capillary refill: <2 Seconds Gastrointestinal: Normal bowel sounds, Soft and benign Musculoskeletal: No clubbing Integumentary: No rashes Neurological: Normal speech, Normal tone - Studies Laboratory Data (last 24 hrs) 10/01/24 10/01/24 10/01/24 12:17 12:17 12:17 WBC 8.00 Hgb 15.9 Hct 47.4 Plt Count 238 PT 11.3 INR 0.99 Sodium 139 Potassium 3.9 BUN 20 H Creatinine 1.16 Glucose 171 H Magnesium 2.0 Assessment and Plan - Plan Assessment and Plan Symptomatic Aflutter Hypertensive urgency -Admit to ICU -Cardiology -Aspirin, plavix - Continuous telemetry - Eliquis and amiodarone drip - Aspirin Lipitor - Serial troponin - TSH/free T4, lipid panel, A1c in the a.m. Diabetes mellitusIDDM - Accu-Chek with sliding scale insulin - Hypoglycemic protocol in place - Serum glucose 171 Hypertensive disorder Hypercholesterolemia glaucoma - Continue home medication as appropriate DVT PPx Eliquis Full code LOS 2 to 3 days Discharge Plan: Home Plan to discharge in: 48 Hours - Advance Directives Does patient have a Living Will: No Does patient have a Durable POA for Healthcare: No
[2024-10-01] MEDS ORDERED: METOPROLOL XL 25 MG TAB PO ONE (15:02)
[2024-10-01] MEDS: METOPROLOL XL 25 MG TAB PO SCH (16:00)
[2024-10-01] MEDS: INSULIN REGULAR (HUMAN) 100 UNIT/ML SQ SCH (16:30)
[2024-10-01] MEDS: AMIODARONE HCL 900 MG in Dextrose 5%-Water 482 ML IV SCH (18:28)
[2024-10-01] MEDS ORDERED: GLUCAGON 1 MG/VIAL IV PRN (19:12)
[2024-10-01] MEDS ORDERED: D50W 25 GM/50 ML SYRINGE IV PRN (19:12)
--- NOTE | 2024-10-01 19:20 | CON ---
Date of Consultation: 10/01/2024 Reason For Consultation: Palpitations. History Of Present Illness: This is a 69-year-old male. He saw his primary care physician today, Dr Saul Mercado, and an EKG, he was in atrial fibrillation with rapid ventricular response. He has no compl aints. He does not even feel it. Denies having any chest pain or shortness of breath or any other c omplaints. I saw him at bedside. He was tachycardiac in the 140s without any significant symptoms. Past Medical History: Dyslipidemia, hypertension, diabetes. Medications: Refer to reconciliation sheet for detailed list. Allergies: NO KNOWN DRUG ALLERGIES. Family History: No premature coronary artery disease or cancer. Social History: He does not smoke or drink. Does not use any drugs. Review of Systems: All systems reviewed and they were negative except as mentioned in HPI. Physical Examination: Vital Signs: Reviewed. Head and Neck: Pupils are equal, reactive to light. Intact eye movements. No JVD, no cervical lymp hadenopathy. Neck is supple. Thyroid is not enlarged. Lungs: Clear to auscultation bilaterally. No rhonchi, wheezing, or crackles. No accessory muscle u se. Heart: Irregularly irregular. No extra sounds. Abdomen: Soft, nontender. Bowel sounds positive. No organomegaly. No masses or hernia. No rigidi ty or rebound. Extremities: No clubbing or cyanosis. Intact pulses. Skin: No rash. No nodules. Neurologic: Alert, awake, oriented x3. No acute focal deficits appreciated. Investigations: BNP is 583, BUN 20, creatinine 1.1, and hemoglobin 15.9. Assessment/recommendation: 1. Atrial fibrillation with rapid ventricular response. Start the patient on amiodarone load 150 mg over 10 minutes, then 1 mg/minute for 6 hours, then 0.5 mg/minute for 16 hours and start him on Eliqu is 5 mg twice a day for stroke prevention and check TSH. 2. Elevated NT proBNP, likely diastolic heart failure. Obtain an echo. 3. Dyslipidemia, on Lipitor 40 mg at bedtime. 4. Diabetes. Check sugars 3 times a day. Cover with regular insulin per sliding scale. 5. As far as atrial fibrillation after the 24-hour load to switch to oral and if need be to add metop rolol to that and if the rate is controlled, he can be released over the weekend. Otherwise, we will plan for DOMINGO cardioversion as an outpatient or an inpatient if heart rate control could not be achie doni. Thank you for the consult. ALYCIA Voice ID: [id number] Report ID: [id number]
[2024-10-01] MEDS ORDERED: D10W 125 ML IV PRN (19:35)
[2024-10-01] MEDS: APIXABAN 5 MG TABLET PO SCH (20:52)
[2024-10-01] MEDS: ATORVASTATIN 40 MG TAB PO SCH (20:52)
[2024-10-02 05:19] LABS: Absolute Basophils 0.1 K/uL (0-0.5); Absolute Eosinophils 0.3 K/uL (0-0.5); Absolute Monocytes 0.7 K/uL (0.1-1.3); Absolute Neutrophil 5.3 K/uL (1.8-8.0); Basophils % 1.2 % (0-1.3); Eosinophils % 3.7 % (0-4.4); Hematocrit 45.7 % (39.6-49.0); Hemoglobin 15.4 g/dL (13.6-17.9); MCH 29.1 pg (27.0-35.0); MCHC 33.7 g/dL (32.0-36.0); MCV 86.2 fL (80-100); MPV 8.6 fL (7.6-11.3); Monocytes % 8.4 % (3.3-12.3); Neutrophils % 62.7 % (41.7-73.7); Nucleated Red Blood Cells % 0.2 % (0-0); Platelets 243 thou/uL (152-406); Red Cell Distribution Width 15.5 % (12.1-15.2)
[2024-10-02 05:43] LABS: Anion Gap 11.4 mEq/L (5.0-15.0); Magnesium 1.9 mg/dL (1.6-2.4); Phosphorus 3.8 mg/dL (2.5-4.9); Potassium 3.4 mEq/L (3.5-5.1); Thyroid Stimulating Hormone 2.7 uIU/mL (0.358-3.740)
[2024-10-02] MEDS: FEXOFENADINE 180 MG TAB PO SCH (08:44)
[2024-10-02] MEDS: ASPIRIN EC 81 MG TAB PO SCH (08:44)
[2024-10-02] MEDS: MELOXICAM 7.5 MG TAB PO SCH (08:45)
[2024-10-02] MEDS: HOME MED 1 EA UNK (Prednisolone Acetate/Pf [Prednisolone Acet 1% Eye Drop] 5 ML Drops.Susp OPTH SCH (09:00)
[2024-10-02] MEDS: INSULIN GLARGINE 100 UNIT/ML SQ SCH (12:16)
[2024-10-02] MEDS: AMIODARONE HCL 200 MG TAB PO SCH (12:17)
[2024-10-02] MEDS: METFORMIN HCL 500 MG TAB PO SCH (19:15)
[2024-10-02] MEDS ORDERED: HOME MED 1 EA UNK (Insulin Glargine,Hum.Rec.Anlog [Lantus Solostar] 100 UNIT/ML Insuln.Pen SQ SCH (21:00)
--- NOTE | 2024-10-02 21:17 | P.PN ---
Date of Service: 10/02/24 Subjective Awake and feeling better this morning, heart rate controlled still in A-fib Transitioning to Amio p.o. this afternoon Will continue to monitor and discussed discharge in the a.m. ROS 10 point ROS as noted above, otherwise negative Physical Exam General: Alert and Oriented x3, NAD HEENT: Atraumatic, Normocephalic, PERRLA Neck: Supple, 2+ carotid pulse no bruit Respiratory: Clear BBS, Normal air movement, on RA Cardiovascular: Normal S1 S2, Irregular heart rate/rhythm Capillary refill: <2 Seconds Gastrointestinal: Normal bowel sounds, Soft and benign on palpation Musculoskeletal: No clubbing Integumentary: No rashes Neurological: Normal speech, Normal tone Vitals Reviewed Problem list Symptomatic Afib with RVR Hypertensive urgency Diabetes mellitusIDDM Hypertensive disorder Hypercholesterolemia glaucoma Assessment and Plan Symptomatic Afib with RVR Hypertensive urgency -Admit to ICU -Cardiology following -Aspirin, plavix - Continuous telemetry - Eliquis and -amiodarone drip transition to PO - Aspirin and Lipitor - Troponin trended flat - TSH/free T4 2.7/0.90, lipid panel-triglyceride 162, cholesterol 147, LDL 70, HDL 45 Diabetes mellitusIDDM - Accu-Chek with sliding scale insulin - Hypoglycemic protocol in place -restart home medications as appropriate Hypertensive disorder Hypercholesterolemia glaucoma - Continue home medication as appropriate DVT PPx Eliquis Full code LOS 2one day Discharge Plan: Home
[2024-10-03 05:12] LABS: Absolute Basophils 0.1 K/uL (0-0.5); Absolute Eosinophils 0.3 K/uL (0-0.5); Absolute Lymphocytes (CBC) 2.1 K/uL (0.7-4.9); Absolute Monocytes 0.9 K/uL (0.1-1.3); Absolute Neutrophil 5.6 K/uL (1.8-8.0); Basophils % 1.3 % (0-1.3); Eosinophils % 3.4 % (0-4.4); Hematocrit 47.8 % (39.6-49.0); Hemoglobin 16.3 g/dL (13.6-17.9); Lymphocytes % 23.3 % (15.3-44.8); MCH 29.6 pg (27.0-35.0); MCV 87.2 fL (80-100); MPV 8.6 fL (7.6-11.3); Monocytes % 9.9 % (3.3-12.3); Neutrophils % 62.1 % (41.7-73.7); Nucleated Red Blood Cells % 0.1 % (0-0); Platelets 218 thou/uL (152-406); RBC Red Blood Cell Count 5.49 M/uL (4.33-5.43); Red Cell Distribution Width 15.9 % (12.1-15.2)
[2024-10-03 05:20] LABS: Anion Gap 10.2 mEq/L (5.0-15.0); Phosphorus 3.8 mg/dL (2.5-4.9); Potassium 3.2 mEq/L (3.5-5.1)
[2024-10-03] MEDS: POTASSIUM 25 MEQ EFFERV TAB PO ONE (06:14)
[2024-10-03] MEDS: ACETAMINOPHEN 500 MG TAB PO PRN (07:15)
[2024-10-03] MEDS: POTASSIUM CL SA 10 MEQ TAB PO ONE (16:20)
--- NOTE | 2024-10-03 16:35 | P.PN ---
Date of Service: 10/03/24 Subjective Pleasant this morning Per Cardiology, will perform DOMINGO and cardiovert in the AM ROS 10 point ROS as noted above, otherwise negative Physical Exam General: AAOx3, No acute distress HEENT: Atraumatic, Normocephalic, PERRLA Neck: Supple, 2+ carotid pulse no bruit Respiratory: Clear BBS, on RA Cardiovascular: Normal S1 S2, Irregular heart rate/rhythm Capillary refill: <2 Seconds Gastrointestinal: Normal bowel sounds, Soft on palpation Musculoskeletal: No clubbing Integumentary: No rashes Neurological: Normal speech, Normal tone Vitals Reviewed Problem list Symptomatic Afib with RVR Hypertensive urgency Diabetes mellitusIDDM Hypertensive disorder Hypercholesterolemia glaucoma Assessment and Plan Symptomatic Afib with RVR Hypertensive urgency -Admit to ICU -Cardiology following-DOMINGO and cardiovert in the AM -Repeat EKG appears Aflutter -Aspirin, plavix - Continuous telemetry - Eliquis -amiodarone drip transition to PO - Aspirin and Lipitor - Troponin trended flat - TSH/free T4 2.7/0.90, lipid panel-triglyceride 162, cholesterol 147, LDL 70, HDL 45 Diabetes mellitusIDDM - Accu-Chek with sliding scale insulin - Hypoglycemic protocol in place - restart home medications as appropriate Hypertensive disorder Hypercholesterolemia glaucoma - Continue home medication as appropriate DVT PPx Eliquis Full code LOS 2one day Discharge Plan: Home
--- NOTE | 2024-10-03 17:50 | PN ---
Date of Progress Note: 10/03/2024 Subjective: Seen by bedside. Continues to be in atrial flutter. Heart rate now is in the high 90s, but with activities goes above 120. Does not have any chest pain or shortness of breath. No nausea , vomiting, or diarrhea. All other systems reviewed and they were negative. Physical Examination: Vital Signs: Reviewed. Head and Neck: Pupils are equal, reactive to light. Intact eye movements. No JVD. No cervical lym phadenopathy. Neck: Supple. Thyroid is not enlarged. Lungs: Clear to auscultation bilaterally. No rhonchi, wheezing, or crackles. No accessory muscle u se. Heart: Regular rate and rhythm. No extra sounds. Abdomen: Soft, nontender. Bowel sounds positive. No organomegaly. No masses or hernia. No rigidi ty or rebound. Extremities: No edema, clubbing, or cyanosis. Intact pulses. Skin: No rash. No nodules. Neurologic: Alert, awake, and oriented x3. No acute focal deficits appreciated. Investigations: Labs were reviewed. Assessment And Recommendations: 1. Atrial flutter with rapid ventricular response, is better. Continue amiodarone 200 mg twice a day , Eliquis 5 mg twice a day. Keep NPO past midnight and plan for a DOMINGO-guided cardioversion in the mo rning. 2. Elevated NT-proBNP. Await on echo. This is likely diastolic dysfunction. 3. Dyslipidemia, on statin. To continue current therapy. SR/MODL Voice ID: [id number] Report ID: [id number]
[2024-10-04 04:32] LABS: Absolute Eosinophils 0.4 K/uL (0-0.5); Absolute Lymphocytes (CBC) 2.3 K/uL (0.7-4.9); Absolute Monocytes 0.7 K/uL (0.1-1.3); Absolute Neutrophil 4.9 K/uL (1.8-8.0); Basophils % 0.2 % (0-1.3); Eosinophils % 4.4 % (0-4.4); Hemoglobin 15.3 g/dL (13.6-17.9); Lymphocytes % 27.1 % (15.3-44.8); MCH 29.5 pg (27.0-35.0); MCV 86.8 fL (80-100); MPV 8.5 fL (7.6-11.3); Monocytes % 8.9 % (3.3-12.3); Neutrophils % 59.4 % (41.7-73.7); Nucleated Red Blood Cells % 0.1 % (0-0); Platelets 232 thou/uL (152-406); RBC Red Blood Cell Count 5.18 M/uL (4.33-5.43); Red Cell Distribution Width 15.7 % (12.1-15.2)
[2024-10-04 04:40] VITALS: BMI 33.0
[2024-10-04 04:49] LABS: Anion Gap 8.8 mEq/L (5.0-15.0); Phosphorus 3.6 mg/dL (2.5-4.9); Potassium 3.8 mEq/L (3.5-5.1); Troponin High Sensitivity 26.5 pg/mL (<58.9)
[2024-10-04] MEDS: POTASSIUM 25 MEQ EFFERV TAB PO ONE (06:13)
[2024-10-04] MEDS: NA CHLORIDE 0.9% 500 ML ONE (08:08)
[2024-10-04] MEDS ORDERED: LIDOCAINE 1% MPF 5 ML VIAL ONE (09:08)
[2024-10-04] MEDS ORDERED: propofoL 200 MG/20 ML VIAL IV ONE (09:09)
[2024-10-04 10:01] VITALS: O2SAT 96
--- NOTE | 2024-10-04 11:18 | P.PN ---
Subjective Date of Service: 10/04/24 Chief Complaint: symptomatic Aflutter Subjective: No new changes, No C/O voiced, Tolerating diet, Ambulating, Improving Review of Systems 10-point ROS is otherwise unremarkable Physical Examination - Vital Signs Temperature: 98.3 F Blood Pressure: 116/68 Pulse: 65 Respirations: 17 Pulse Ox (%): 96 - Physical Exam General: Alert, In no apparent distress HEENT: Atraumatic, PERRLA, EOMI Neck: Supple, JVD not distended Respiratory: Clear to auscultation bilaterally, Normal air movement Cardiovascular: Regular rate/rhythm, Normal S1 S2 Gastrointestinal: Normal bowel sounds, No tenderness Musculoskeletal: No tenderness Integumentary: No rashes Neurological: Normal speech, Normal tone, Normal affect Lymphatics: No axilla or inguinal lymphadenopathy - Studies Medications List Reviewed: Yes Assessment And Plan - Current Problems (Diagnosis) (1) Atrial fibrillation Current Visit: Yes Status: Acute Plan: Patient is s/p DOMINGO DCCV Continue Amiodarone 200 mg po BID Continue Toprol XL 25 mg daily continue Eliquis 5 mg po BID Outpatient follow up with cardiology
[2024-10-04] MEDS: GABAPENTIN 300 MG CAP PO PRN (11:21)
--- NOTE | 2024-10-04 12:07 | EKG ---
Test Date: 2024-10-01 Test Time: 11:59:58 Moving Van Driver: KALYANI MEASUREMENT RESULTS: Intervals: Rate: 120 OK: QRSD: 128 QT: 348 QTc: 491 Hopkins: P: -64 OK: QRS: -66 T: 52 INTERPRETIVE STATEMENTS: Atrial flutter with variable AV block Right bundle branch block Left anterior fascicular block Bifascicular block Minimal voltage criteria for LVH, may be normal variant Anterior infarct, age undetermined Abnormal ECG No previous ECG available for comparison Electronically Signed On 10-04-24 12:05:16 CDT by Aiden Pritchett
--- NOTE | 2024-10-04 12:38 | TEE ---
TRANSESOPHAGEAL ECHOCARDIOGRAM REPORT CARDIOLOGY DEPARTMENT DATE OF STUDY: 10/04/24 HEIGHT: 5'6" WEIGHT: 205 DIAGNOSIS: ATRIAL FLUTTER RN LPN CNA COMMENTS: CARDIAC HISTORY: CATHERIZATION: SURGERY: PROSTHETIC VALVE: PACEMAKER: 2 DIMENSIONAL ASSESSMENT: RIGHT ATRIUM: LEFT ATRIUM: RIGHT VENTRICLE: LEFT VENTRICLE: TRICUSPID VALVE: MITRAL VALVE: PULMONIC VALVE: AORTIC VALVE: PERICARDIAL EFFUSION: AORTIC ROOT: COMMENTS: 1. NORMAL LEFT ATRIAL APPENDAGE, NO CLOT. 2. MILD MITRAL REGURGITATION. TECHNOLOGIST: DR. DELANEY/ SANTI WILKS
[2024-10-04 13:36] VITALS: BP 140/85; TEMP 98
[2024-10-04] MEDS: GABAPENTIN 300 MG CAP PO SCH (13:48)
--- NOTE | 2024-10-04 14:41 | P.DS ---
Admission Date: 10/01/24 Discharge Date: 10/04/24 Disposition: ROUTINE DISCHARGE Discharge Condition: GOOD Reason for Admission: symptomatic Aflutter Brief History of Present Illness: Sawyer Beltran is a 69 year old male with pmhx Hypertensive disorder; Hypercholesterolemia; glaucoma; Diabetes mellitus who presents to the ED from his PCP office with an abnormal EKG. He reports going for eye surgery and his EKG was abnormal with recommendations to see cardiology but he went to his PCP office instead because he did not have any symptoms. Dr. Mercado recommended coming to the ED, now with dizzinees and high blood pressure. Dr. Garcia consulted and recommended amiodarone gtt with a bolus. Laboratory evaluation significant for BNP 583, GFR is 68, serum glucose 171. EKG representing atrial flutter heart rate 120. Chest x-ray reports "No evidence of acute cardiopulmonary disease." Sawyer will be admitted to hospitalist service for further treatment of atrial flutter. Hospital Course: Problem list Symptomatic Afib with RVR Hypertensive urgency Diabetes mellitusIDDM Hypertensive disorder Hypercholesterolemia glaucoma Patient was admitted to hospital for new onset atrial flutter/atrial fibrillation with rapid ventricular response. He initially started on IV amiodarone and was rate controlled but still in A-fib. Cardiology recommended DOMINGO cardioversion which was performed on 10/04. Patient has done well after the procedure and is stable for discharge with outpatient follow-up. Medications should be continued as previously prescribed aside from the following changes Stop taking aspirin 3 to 25 mg daily Prescriptions for the following medications sent to your pharmacy [facility] Amiodarone 200 mg by mouth twice daily Eliquis 5 mg by mouth twice daily metoprolol succinate/Toprol CL 25mg daily Please follow up with your director of blood and PCP in the next 1-2 weeks Vital Signs/Physical Exam: Temp Pulse Resp BP Pulse Ox 98 F 73 17 140/85 95 10/04/24 12:00 10/04/24 12:00 10/04/24 12:00 10/04/24 12:10/04/24 12:00 General: Alert, In no apparent distress, Oriented x3 HEENT: Atraumatic, PERRLA Neck: Supple, JVD not distended Respiratory: Clear to auscultation bilaterally, Normal air movement Cardiovascular: Regular rate/rhythm, Normal S1 S2 Gastrointestinal: Normal bowel sounds, No tenderness Musculoskeletal: No tenderness Integumentary: No rashes Neurological: Normal speech, Normal affect Laboratory Data at Discharge: WBC 8.30 thou/uL (4.3-10.9) 10/04/24 04:15 Hgb 15.3 g/dL (13.6-17.9) 10/04/24 04:15 Hct 45.0 % (39.6-49.0) 10/04/24 04:15 Plt Count 232 thou/uL (152-406) 10/04/24 04:15 PT 11.3 SECONDS (10-13.0) 10/01/24 12:17 INR 0.99 10/01/24 12:17 Sodium 140 mEq/L (136-145) 10/04/24 04:15 Potassium 3.8 mEq/L (3.5-5.1) 10/04/24 04:15 BUN 29 mg/dL (7-18) H 10/04/24 04:15 Creatinine 1.22 mg/dL (0.70-1.30) 10/04/24 04:15 Glucose 153 mg/dL (74-106) H 10/04/24 04:15 Phosphorus 3.6 mg/dL (2.5-4.9) 10/04/24 04:15 Magnesium 2.0 mg/dL (1.6-2.4) 10/04/24 04:15 Triglycerides 162 mg/dL (<150) H 10/02/24 04:43 Cholesterol 147 mg/dL (<200) 10/02/24 04:43 HDL Cholesterol 45 mg/dL (40-60) 10/02/24 04:43 Cholesterol/HDL Ratio 3.27 10/02/24 04:43 Home Medications: Amlodipine Besylate 10 mg PO DAILY 10/01/24 Atorvastatin Calcium 10 mg PO DAILY 10/01/24 Docosahexanoic AC/Epa [Fish Oil 1,000 MG*] 1,000 mg PO DAILY 10/01/24 Dorzolamide HCl/Pf [Dorzolamide 2% Eye Drop] 1 drop OPTH BID 10/01/24 Empagliflozin [Jardiance] 10 mg PO DAILY 10/01/24 Fexofenadine HCl 180 mg PO DAILY 10/01/24 Gabapentin 300 mg PO TID 10/01/24 Insulin Glargine,Hum.rec.anlog [Lantus Solostar] 60 units SQ BID 10/01/24 Ketorolac Tromethamine 1 drop OP QID 10/01/24 Meloxicam 15 mg PO DAILY 10/01/24 Metformin HCl 1,000 mg PO BID 10/01/24 Moxifloxacin HCl [Moxifloxacin] 3 ml OP QID 10/01/24 Prednisolone Acetate/Pf [Prednisolone Acet 1% Eye Drop] 1 drop OP QID 10/01/24 Valsartan/Hydrochlorothiazide [Valsartan-Hctz 320-25 mg Tab] 1 tab PO DAILY 10/01/24 Amiodarone HCl [Cordarone*] 200 mg PO BID #60 tab 10/04/24 Apixaban [Eliquis] 5 mg PO BID #60 tab 10/04/24 Metoprolol Succinate [Toprol Xl*] 25 mg PO [id number] #30 tab 10/04/24 New Medications: Amiodarone HCl [Cordarone*] 200 mg PO BID #60 tab Apixaban [Eliquis] 5 mg PO BID #60 tab Metoprolol Succinate [Toprol Xl*] 25 mg PO [id number] #30 tab Physician Discharge Instructions: Patient was admitted to hospital for new onset atrial flutter/atrial fibrillation with rapid ventricular response. He initially started on IV amiodarone and was rate controlled but still in A-fib. Cardiology recommended DOMINGO cardioversion which was performed on 10/04. Patient has done well after the procedure and is stable for discharge with outpatient follow-up. Medications should be continued as previously prescribed aside from the following changes Stop taking aspirin 3 to 25 mg daily Prescriptions for the following medications sent to your pharmacy [facility] Amiodarone 200 mg by mouth twice daily Eliquis 5 mg by mouth twice daily metoprolol succinate/Toprol CL 25mg daily Please follow up with your director of blood and PCP in the next 1-2 weeks Diet: Regular Activity: Ad talita Followup: Aiden Pritchett MD [ACTIVE - CAN ADMIT] - 1 Week (Call for appointment. ) Cody Mercado DO [Primary Care Provider] - 1-2 Weeks (call for appointment ) Time spent managing pt's care (in minutes): 47
--- NOTE | 2024-10-04 21:31 | OP ---
Date of Procedure: 10/04/2024 Surgeon: Aiden Pritchett Procedure Performed: Synchronized transesophageal echocardiogram cardioversion. Indication For Procedure: Atrial fibrillation. Complications: None. Estimated Blood Loss: None. Sedation: Done by Anesthesia team. Description Of Procedure: After risks, and benefits, and alternatives were explained to the patient, patient agreed to proceed with procedure and signed informed consent. The patient was brought back to the OR. Time-out was performed. Sedation was administered by Anesthesia team. DOMINGO probe inserte d. Images were obtained and then DOMINGO probe out. Synchronized cardioversion was done with 250 joules . Patient converted back into sinus rhythm. Patient was awoken up and moved back to recovery in sta ble condition. Assessment And Plan: Atrial fibrillation, status post successful transesophageal echocardiogram card ioversion. Plan is to continue amiodarone 200 mg p.o. b.i.d. and continue Eliquis 5 mg p.o. b.i.d. and continue Toprol-XL 25 mg daily. Outpatient followup with Cardiology. JHONY Voice ID: [id number] Report ID: [id number]
--- NOTE | 2024-10-06 12:27 | EKG ---
Test Date: 2024-10-04 Test Time: 09:31:42 Art Appraiser: ZARIA MEASUREMENT RESULTS: Intervals: Rate: 66 [place]: 176 QRSD: 132 QT: 448 QTc: 469 [place]: P: 50 [place]: 176 QRS: -57 T: 9 INTERPRETIVE STATEMENTS: Normal sinus rhythm Possible Left atrial enlargement Right bundle branch block Left anterior fascicular block Bifascicular block Cannot rule out Inferior infarct (masked by fascicular block?), age undetermined Abnormal ECG Compared to ECG 10/04/2024 08:25:31 Myocardial infarct finding now present Atrial flutter no longer present Ventricular premature complex(es) no longer present Electronically Signed On 10-06-24 12:24:48 CDT by Aiden Pritchett
--- NOTE | 2024-10-06 12:27 | EKG ---
Test Date: 2024-10-03 Test Time: 08:22:41 Supervisor Liquefaction: SANDOVAL MEASUREMENT RESULTS: Intervals: Rate: 85 [place]: QRSD: 150 QT: 442 QTc: 525 [place]: P: -88 [place]: QRS: -67 T: -57 INTERPRETIVE STATEMENTS: Atrial flutter with variable AV block with premature ventricular or aberrantly conducted complexes Right bundle branch block Left anterior fascicular block Bifascicular block Minimal voltage criteria for LVH, may be normal variant T wave abnormality, consider inferolateral ischemia Abnormal ECG Compared to ECG 10/01/2024 11:59:58 Ventricular premature complex(es) now present T-wave abnormality now present Possible ischemia now present Myocardial infarct finding no longer present Bifascicular block still present Electronically Signed On 10-06-24 12:25:12 CDT by Aiden Pritchett
--- NOTE | 2024-10-06 12:27 | EKG ---
Test Date: 2024-10-04 Test Time: 08:25:31 Full Time Paramedic: RADHA MEASUREMENT RESULTS: Intervals: Rate: 87 [place]: QRSD: 142 QT: 414 QTc: 498 [place]: P: -72 [place]: QRS: -61 T: -3 INTERPRETIVE STATEMENTS: Atrial flutter with variable AV block with premature ventricular or aberrantly conducted complexes Right bundle branch block Left anterior fascicular block Bifascicular block Minimal voltage criteria for LVH, may be normal variant T wave abnormality, consider inferior ischemia Abnormal ECG Compared to ECG 10/03/2024 08:22:41 No significant changes Electronically Signed On 10-06-24 12:25:03 CDT by Aiden Pritchett
== END 2024-10-04 14:13 | disposition home or self-care (01) | DRG 310 ==
LOC: ER 11:25 → ERHOLD 13:49 → 3RD-ICU 16:11 → 4TH 10-03 16:57
PROVIDERS: ADMIT Hospitalist; ATTEND Hospitalist
PROC: B24BZZ4 Ultrasonography of Heart with Aorta, Transesophageal (ICD-10-PCS; principal; 2024-10-04)
PROC: 5A2204Z Restoration of Cardiac Rhythm, Single (ICD-10-PCS; 2024-10-04)
DX: I48.92 Unspecified atrial flutter (principal); I16.0 Hypertensive urgency; I10 Essential (primary) hypertension; I48.91 Unspecified atrial fibrillation; E78.00 Pure hypercholesterolemia, unspecified; E11.39 Type 2 diabetes mellitus with other diabetic ophthalmic complication; H42 Glaucoma in diseases classified elsewhere; Z88.0 Allergy status to penicillin; Z79.4 Long term (current) use of insulin; Z79.82 Long term (current) use of aspirin; Z79.52 Long term (current) use of systemic steroids; Z79.899 Other long term (current) drug therapy
CPT/HCPCS: 01922; 36415; 71045; 80048; 80061; 82947; 83735; 83880; 84100; 84132; 84439; 84443; 84484; 85025; 85610; 92960; 93005; 93312; 96365; 96366; 99285; J0282; J1815; J2003; J2704; J7040; J7060

== ENCOUNTER 2025-03-02 17:46 | Emergency (ER) | payer MEDICAID ==
--- OUTSIDE RECORDS SUMMARY | 2025-03-02 17:54 | XMS REPORT | Continuity of Care Document ---
Author Name Unknown Address [address] [facility], [place]. [address] [place] [address] Organization [facility] Address [address] [facility] [place]. [address] [place] [address] Care Team Providers Care Day Care Home Mother Name Role Phone YEIMY GIO Attending Clinician Unavailable ABEBA ACOSTA Attending Clinician Unavailable WADE LEBLANC Attending Clinician Unavailable 1, [facility] Attending Clinic kennedy Unavailable BROOKE CLIFTON Attending Clinician Unavailable MAGDALENO CARLTON Attending Clinician Unavailabl e MD JENNIFER Attending Clinician Unavailab le [id number] Attending Clinician Unavailable SHON MAZARIEGOS Attending Clinician Unavaila GRACIELA Matt Attending Clinician Unavailab le MAC, EKG- Attending Clinician Unavailable NARGIS LATAHM Attending Clinician Unavaila ble LAB90 Attending Clinician Unavailable ANDRA OCAMPO Attending Clinician Unava ilable VF51 Attending Clinician Unavailable BLAKE YODER Attending Clinician Unava ilable ADALBERTO GALINDO Attending Clinician Unavailable TOMOGRAPHY, MP [facility] Attending Clini kenneth Unavailable MIGUEL SHEEHAN Attending Clinician Unavailable Payers Payer Name Policy Type Policy Number Effective Date Expirati on Date Source [employer] H[employer]-POS 16 [id number] 2024 00:00:00 HUMANA MA GOLD PLUS 42 OA 7 [id number] 2022 00:00:00 Problems Condition Name Condition Details Condition Category Status Onset Date Resolution Date Last Treatment Date Treating Clinician Comments Source Preop examinatio n Preop examinatio n Disease Active 14 00:00: 00 Yue tracy Paroxysmal atrial fibrillati on Paroxysmal atrial fibrillati on Disease Active 17 00:00: 00 Yue Swanson Externa demarcus Hypercoagu lable state due to paroxysmal atrial fibrillati on Hypercoagu lable state due to paroxysmal atrial fibrillati on Disease Active 10-05 00:00: 00 Yue Swanson Externa demarcus Hospital discharge follow-up Hospital discharge follow-up Disease Active 10-05 00:00: 00 Yue Cummingsa demarcus Class 2 severe obesity due to excess calories with serious comorbidit y and body mass index (BMI) of 36.0 to 36.9 in adult Class 2 severe obesity due to excess calories with serious comorbidit y and body mass index (BMI) of 36.0 to 36.9 in adult Disease Active 09-06 00:00: 00 Yue Cummingsa demarcus 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 Disease Active 09-06 00:00: 00 Yue Swanson Externa demarcus 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, both eyes 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, both eyes Disease Active 09-06 00:00: 00 Yue Swanson Externa demarcus Type 2 diabetes mellitus with hyperglyce chelsey, with long-term current use of insulin Type 2 diabetes mellitus with hyperglyce chelsey, with long-term current use of insulin Disease Active 08-30 00:00: 00 Yue Cummingsa demarcus Microalbum inuria due to type 2 diabetes mellitus Microalbum inuria due to type 2 diabetes mellitus Disease Active 08-30 00:00: 00 Yue Swanson Externa demarcus Diabetic polyneurop athy associated with type 2 diabetes mellitus Diabetic polyneurop athy associated with type 2 diabetes mellitus Disease Active 07-07 00:00: 00 Yue Cummingsa demarcus 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 Disease Active 07-07 00:00: 00 Yue Seybold - Externa l Well adult exam Well adult exam Disease Active 2022-05 2-12 00:00: 00 Yue Seybold - Externa l [...] adult Disease Active 09-09 00:00: 00 Yue Lipscombybold - Externa l Hearing loss Hearing loss Disease Active 09-09 00:00: 00 Yue Lipscombybold - Externa l Severe obesity Severe obesity [...] type 2 Yue Seybold - Externa l Left hip pain Left hip pain Disease Resolve d 09-09 00:00: 00 2024-09-06 00:00:00 2024-09-06 09:27:47 Yue Seybold - Externa l Bilateral tinnitus Bilateral tinnitus Disease Resolve d 09-09 00:00: 00 2024-09-06 00:00:00 2024-09-06 09:27:02 Yue Seybold - Externa l Sciatic nerve pain, left Sciatic nerve pain, left Disease Resolve d 1-18 00:00: 00 2024-09-06 00:00:00 2024-09-06 09:27:50 Yue Boykin - Externa l High cholestero l High cholestero l Disease Resolve d 1-18 00:00: 00 2022-09-09 00:00:00 2022-09-09 09:42:42 Yue Chandlerold - Externa l Allergies, Adverse Reactions, Alerts Allergy Name Allergy Type Status Severity Reaction(s) Onset Date Inactive Date Treating Clinician Comments Source Ampicill in Propensi ty to adverse reaction s Active Rash 10-23 00:00: 00 Yue Boykin - Externa l Social History Social Habit Start Date Stop Date Quantity Comments Source History of tobacco use Chews Tobacco Yue Boykin - External Gender identity Consuelo Boykin - External Sexual orientation K stanley Boykin - External History of Occupation Yue Boykin - External Alcoholic beverage intake 2025-02-18 00:00:00 2025-02-18 00:00:00 Ex-drinker (finding) Yue Boykin - External [...] Dosage Frequency Signature (SIG) Comments Components Source Faricimab-s voa SOSY 6 mg Faricimab-s voa SOSY 6 mg 02-09 11:00: 00 02-09 11:01 :00 Yes [id number] 6mg 6 mg, Physician Administer ed, ONCE, 1 dose, On Fri02/09/25 at 1100 Yue tracy Faricimab-s voa SOSY 6 mg Faricimab-s voa SOSY 6 mg 01-12 11:31: 36 Yes [id number] 6mg 6 mg, Physician Administer ed, ONCE, 1 dose, On Fri01/12/25 at 1130 Yue tracy Multiple Vitamins-Mi nerals (CENTRUM SILVER OR) Multiple Vitamins-Mi nerals (CENTRUM SILVER OR) 01-12 11:25: 27 Yes 1{tbl} QD Take 1 tablet by mouth daily. Yue tracy Ascorbic Acid (Vitamin C) 1000 MG oral Tablet Ascorbic Acid (Vitamin C) 1000 MG oral Tablet 01-12 11:25: 27 Yes 1000mg QD Take 1 tablet (1,000 mg total) by mouth daily. Yue tracy Cholecalcif pat (Vitamin D3) 50 MCG (1999 UT) oral Tablet Cholecalcif pat (Vitamin D3) 50 MCG (1999 UT) oral Tablet 01-12 11:25: 27 Yes Take by mouth. Yue tracy Vitamin E 1000 units oral Capsule Vitamin E 1000 units oral Capsule 01-12 11:25: 27 Yes 1000U QD Take 1 capsule (1,000 units total) by mouth daily. Yue tracy Faricimab-s voa SOSY 6 mg Faricimab-s voa SOSY 6 mg 12-22 09:18: 51 Yes [id number] 6mg 6 mg, Physician Administer ed, ONCE, 1 dose, On Fri12/22/24 at 0930 Yue tracy Bevacizumab (AVASTIN) injection 1.25 mg/0.05 mL (INJ07) - Physician Administere d Bevacizumab (AVASTIN) injection 1.25 mg/0.05 mL (INJ07) - Physician Administere d 12-22 09:17: 44 Yes [id number] 1.25mg Yue tracy [place]-3 Fatty Acids (Fish Oil) 1000 MG oral Capsule [place]-3 Fatty Acids (Fish Oil) 1000 MG oral Capsule 2024-12-06 09:01: 17 Yes [id number] 3 1000mg Q.5D Take 1 capsule (1,000 mg total) by mouth in the morning and 1 capsule (1,000 mg total) in the evening. Yue tracy Fexofenadin e (Deja Allergy) 180 MG oral Tablet Fexofenadin e (Deja Allergy) 180 MG oral Tablet 12-06 09:01: 17 Yes 180mg QD Take 1 tablet (180 mg total) by mouth daily. Yue tracy Bevacizumab (AVASTIN) injection 1.25 mg/0.05 mL (INJ07) - Physician Administere d 11-24 09:42: 32 No [id number] 1.25mg 1.25 mg, Physician Administer ed, ONCE, 1 dose, On Fri11/24/24 at 0945 Yue tracy [place]-3 Fatty Acids (Fish Oil) 1000 MG oral Capsule 11-24 08:54: 20 Yes [id number] 3 1000mg Q.5D Take 1 capsule (1,000 mg total) by mouth in the morning and 1 capsule (1,000 mg total) in the evening. Yue tracy Fexofenadin e (Deja Allergy) 180 MG oral Tablet 11-24 08:54: 20 Yes 180mg QD Take 1 tablet (180 mg total) by mouth daily. Yue Cummingsa demarcus [place]-3 Fatty Acids (Fish Oil) 1000 MG oral Capsule 11-09 15:13: 12 Yes [id number] 3 1000mg Q.5D Take 1 capsule (1,000 mg total) by mouth in the morning and 1 capsule (1,000 mg total) in the evening. Yue tracy Fexofenadin e (Deja Allergy) 180 MG oral Tablet 11-09 15:13: 12 Yes 180mg QD Take 1 tablet (180 mg total) by mouth daily. Yue tracy Insulin Glargine (Lantus SoloStar) 100 UNIT/ML subcutaneou s Solution Pen-injecto r Insulin Glargine (Lantus SoloStar) 100 UNIT/ML subcutaneou s Solution Pen-injecto r 11-09 00:00: 00 Yes [id number] 60 units sc every am and 50 units sc every pm. Yue tracy Bevacizumab (AVASTIN) injection 1.25 mg/0.05 mL (INJ07) - Physician Administere d 10-27 10:35: 58 No [id number] 1.25mg 1.25 mg, Physician Administer ed, ONCE, 1 dose, On Fri10/27/24 at 1030 Yue tracy [place]-3 Fatty Acids (Fish Oil) 1000 MG oral Capsule 10-27 10:29: 41 Yes [id number] 3 1000mg Q.5D Take 1 capsule (1,000 mg total) by mouth in the morning and 1 capsule (1,000 mg total) in the evening. Yue tracy Fexofenadin e (Deja Allergy) 180 MG oral Tablet 10-27 10:29: 41 Yes 180mg QD Take 1 tablet (180 mg total) by mouth daily. Yue tracy Insulin Glargine (Lantus SoloStar) 100 UNIT/ML subcutaneou s Solution Pen-injecto r 10-25 00:00: 00 11-09 00:00 :00 No [id number] 60U Q.5D Inject 60 units into the skin 2 times daily. Yue tracy [place]-3 Fatty Acids (Fish Oil) 1000 MG oral Capsule 10-05 11:28: 59 Yes [id number] 3 1000mg Q.5D Take 1 capsule (1,000 mg total) by mouth in the morning and 1 capsule (1,000 mg total) in the evening. Yue tracy Fexofenadin e (Deja Allergy) 180 MG oral Tablet 10-05 11:28: 59 Yes 180mg QD Take 1 tablet (180 mg total) by mouth daily. Yue tracy Amiodarone HCl 200 MG oral Tablet Amiodarone HCl 200 MG oral Tablet 10-05 00:00: 00 Yes [id number] 200mg Q.5D Take 1 tablet (200 mg total) by mouth 2 times daily. Yue tracy Metoprolol Succinate 25 MG oral TABLET SR 24 HR Metoprolol Succinate 25 MG oral TABLET SR 24 HR 10-04 00:00: 00 Yes [id number] 25mg Take 1 tablet (25 mg total) by mouth. Yue tracy Apixaban (ELIQUIS) 5 MG oral Tablet Apixaban (ELIQUIS) 5 MG oral Tablet 10-04 00:00: 00 Yes [id number] 5mg Take 1 tablet (5 mg total) by mouth. Yue tracy Bevacizumab (AVASTIN) injection 1.25 mg/0.05 mL (INJ07) - Physician Administere d 09-22 10:10: 19 No [id number] 1.25mg 1.25 mg, Physician Administer ed, ONCE, 1 dose, On Fri09/22/24 at 1015 Yue tracy [place]-3 Fatty Acids (Fish Oil) 1000 MG oral Capsule 09-22 09:48: 22 Yes [id number] 3 1000mg Q.5D Take 1 capsule (1,000 mg total) by mouth in the morning and 1 capsule (1,000 mg total) in the evening. Yue tracy Fexofenadin e (Deja Allergy) 180 MG oral Tablet 09-22 09:48: 22 Yes 180mg QD Take 1 tablet (180 mg total) by mouth daily. Yue tracy Dorzolamide HCl 2 % ophthalmic Solution Dorzolamide HCl 2 % ophthalmic Solution 09-22 00:00: 00 Yes [id number] INSTILL 1 DROP BOTH EYES TWICE DAILY Yue tracy Insulin Pen Needle (Pen [place]) 31G X 8 MM does not apply Misc Insulin Pen Needle (Pen [place]) 31G X 8 MM does not apply Misc 09-14 00:00: 00 Yes [id number] 9109 Inject Lantus Solostar 60 units into the skin 2 times daily.. Yue tracy [place]-3 Fatty Acids (Fish Oil) 1000 MG oral Capsule 09-08 09:51: 26 Yes [id number] 3 1000mg Q.5D Take 1 capsule (1,000 mg total) by mouth in the morning and 1 capsule (1,000 mg total) in the evening. Yue tracy Fexofenadin e (Deja Allergy) 180 MG oral Tablet 09-08 09:51: 26 Yes 180mg QD Take 1 tablet (180 mg total) by mouth daily. Yue tracy Moxifloxaci n HCl 0.5 % ophthalmic Solution 09-08 00:00: 00 11-09 00:00 :00 No 1[drp] Q.25D Place 1 drop into both eyes 4 times daily. Yue tracy prednisoLON E Acetate 1 % ophthalmic Suspension 09-08 00:00: 00 11-09 00:00 :00 No 1[drp] Q.25D Place 1 drop into both eyes 4 times daily. Yue tracy KETOROLAC TROMETHAMIN E, OPHTH, 0.5 % ophthalmic Solution 09-08 00:00: 00 11-09 00:00 :00 No 1[drp] Q.25D Place 1 drop into both eyes 4 times daily. Yue tracy Aspirin (Aspirin 81) 81 MG oral Tablet Delayed Response 09-06 09:25: 02 09-06 00:00 :00 No 81mg QD Take 1 tablet (81 mg total) by mouth daily. Yue tracy [place]-3 Fatty Acids (Fish Oil) 1000 MG oral Capsule 09-06 09:05: 19 Yes [id number] 3 1000mg Q.5D Take 1 capsule (1,000 mg total) by mouth in the morning and 1 capsule (1,000 mg total) in the evening. Yue tracy Fexofenadin e (Deja Allergy) 180 MG oral Tablet 09-06 09:05: 19 Yes 180mg QD Take 1 tablet (180 mg total) by mouth daily. Yue tracy Atorvastati n Calcium 10 MG oral Tablet Atorvastati n Calcium 10 MG oral Tablet 09-06 00:00: 00 Yes [id number] 3 10mg QD Take 1 tablet (10 mg total) by mouth daily. Yue tracy Amlodipine Besylate 10 MG oral Tablet Amlodipine Besylate 10 MG oral Tablet 09-06 00:00: 00 Yes [id number] 10mg QD Take 1 tablet (10 mg total) by mouth daily. Yue tracy Valsartan-h ydroCHLOROt hiazide 320-25 MG oral Tablet 09-06 00:00: 00 11-09 00:00 :00 No [id number] 1{tbl} QD Take 1 tablet by mouth daily. Yue tracy Aspirin 325 MG oral Tablet 09-06 00:00: 00 10-05 00:00 :00 No [id number] 325mg QD Take 1 tablet (325 mg total) by mouth daily. Yue tracy Bevacizumab (AVASTIN) infusion 1.25 mg/0.05 mL (INJ07)- Physician Administere d 08-25 13:56: 04 No [id number] 1.25mg 1.25 mg, Physician Administer ed, ONCE, 1 dose, On Fri08/25/24 at 1400 Yue tracy Aspirin (Aspirin 81) 81 MG oral Tablet Delayed Response 08-25 13:27: 40 Yes 81mg QD Take 1 tablet (81 mg total) by mouth daily. Yue tracy [place]-3 Fatty Acids (Fish Oil) 1000 MG oral Capsule 08-25 13:27: 40 Yes [id number] 3 1000mg Q.5D Take 1 capsule (1,000 mg total) by mouth in the morning and 1 capsule (1,000 mg total) in the evening. Yue tracy Fexofenadin e (Deja Allergy) 180 MG oral Tablet 08-25 13:27: 40 Yes 180mg QD Take 1 tablet (180 mg total) by mouth daily. Yue tracy [place]-3 Fatty Acids (Fish Oil) 1000 MG oral Capsule 08-06 09:34: 59 Yes [id number] 3 1000mg Q.5D Take 1 capsule (1,000 [...] 08-06 00:00: 00 09-06 00:00 :00 No [id number] 100mg Q.[id number] 3D Take 1 capsule (100 mg total) by mouth 3 times daily as needed for cough. Yue tracy Famotidine (Pepcid) 20 MG oral tablet 08-06 00:00: 00 09-06 00:00 :00 No [id number] 20mg Q.5D Take 1 tablet (20 mg total) by mouth 2 times daily as needed for heartburn. Yue tracy Azithromyci n 250 MG oral Tablet 08-06 00:00: 00 08-12 04:59 :00 No [id number] Take 2 tablets by mouth on day 1 then 1 tablet by mouth daily for 4 days thereafter .. uYe tracy Aspirin (Aspirin 81) 81 MG oral Tablet Delayed Response 07-21 13:23: 06 Yes 81mg QD Take 1 tablet (81 mg total) by mouth daily. Yue tracy [place]-3 Fatty Acids (Fish Oil) 1000 MG oral Capsule 07-21 13:23: 06 Yes [id number] 3 1000mg Q.5D Take 1 capsule (1,000 mg total) by mouth 2 times daily. Yue tracy Aspirin (Aspirin 81) 81 MG oral Tablet Delayed Response 06-04 08:39: 53 Yes 81mg QD Take 1 tablet (81 mg total) by mouth daily. Yue tracy [place]-3 Fatty Acids (Fish Oil) 1000 MG oral Capsule 06-04 08:39: 53 Yes [id number] 3 1000mg Q.5D Take 1 capsule (1,000 mg total) by mouth 2 times daily. Yue tracy Gabapentin 300 MG oral Capsule Gabapentin 300 MG oral Capsule 06-04 00:00: 00 Yes [id number] 300mg Q.[id number] 3D Take 1 capsule (300 mg total) by mouth 3 times daily as needed. Yue tracy Metformin HCl 1000 MG oral Tablet Metformin HCl 1000 MG oral Tablet 06-04 00:00: 00 Yes [id number] 1000mg Q.5D Take 1 tablet (1,000 mg total) by mouth 2 times daily. Yue tracy Insulin Glargine (Lantus SoloStar) 100 UNIT/ML subcutaneou s Solution Pen-injecto r 06-04 00:00: 00 Yes [id number] 60U Q.5D Inject 60 units into the skin 2 times daily. Yue tracy Meloxicam 15 MG oral Tablet 06-04 00:00: 00 10-05 00:00 :00 No [id number] 15mg QD Take 1 tablet (15 mg total) by mouth daily as needed for pain. Yue tracy Valsartan-h ydroCHLOROt hiazide 320-25 MG oral Tablet 06-04 00:00: 00 09-06 00:00 :00 No [id number] 1{tbl} QD Take 1 tablet by mouth daily. Yue tracy Amlodipine Besylate 10 MG oral Tablet 06-04 00:00: 00 09-06 00:00 :00 No [id number] 10mg QD Take 1 tablet (10 mg total) by mouth daily. Yue tracy Faricimab-s voa SOSY 6 mg 2023-05 10:17: 37 No [id number] 6mg 6 mg, Physician Administer ed, ONCE, 1 dose, On Fri05/05/24 at 0945 Yue tracy Aspirin (Aspirin 81) 81 MG oral Tablet Delayed Response 2023-05 09:40: 17 Yes 81mg QD Take 1 tablet (81 mg total) by mouth daily. Yue tracy [place]-3 Fatty Acids (Fish Oil) 1000 MG oral Capsule 2023-05 09:40: 17 Yes [id number] 3 1000mg Q.5D Take 1 capsule (1,000 mg total) by mouth 2 times daily. Yue tracy Meloxicam 15 MG oral Tablet 2023-05 00:00: 00 06-04 00:00 :00 No [id number] 15mg QD TAKE 1 TABLET BY MOUTH ONCE DAILY NEEDED FOR PAIN Yue tracy Insulin Glargine (Lantus SoloStar) 100 UNIT/ML subcutaneou s Solution Pen-injecto r 2023-05 00:00: 00 06-04 00:00 :00 No [id number] 60U Q.5D Inject 60 units into the skin 2 times daily. Yue tracy Simvastatin 10 MG oral Tablet 2023-05 00:00: 00 09-06 00:00 :00 No [id number] 3 10mg QD Take 1 tablet (10 mg total) by mouth nightly. Yue tracy Faricimab-S VOA (VABYSMO) 2 mg/0.05 mL Intravitrea l Vial - Physician Administere d ([id number]) 02-08 13:32: 29 No [id number] 12mg 12 mg, Physician Administer ed, ONCE, 1 dose, On Fri02/09/24 at 1330 Yue tracy Aspirin (Aspirin 81) 81 MG oral Tablet Delayed Response 02-08 12:44: 02 Yes 81mg QD Take 1 tablet (81 mg total) by mouth daily. Yue tracy [place]-3 Fatty Acids (Fish Oil) 1000 MG oral Capsule 02-08 12:44: 02 Yes [id number] 3 1000mg Q.5D Take 1 capsule (1,000 mg total) by mouth 2 times daily. Yue tracy Empaglifloz in (Jardiance) 10 MG oral Tablet Empaglifloz in (Jardiance) 10 MG oral Tablet 02-03 00:00: 00 Yes [id number] 10mg QD Take 1 tablet (10 mg total) by mouth daily. Yue tracy Insulin Glargine (Lantus SoloStar) 100 UNIT/ML subcutaneou s Solution Pen-injecto r 02-03 00:00: 00 Yes [id number] INJECT UNDER THE SKIN 60 UNITS DAILY IN MORNING AND 60 UNITS EVERY NIGHT. Yue tracy Meloxicam 15 MG oral Tablet 01-26 00:00: 00 Yes [id number] 15mg QD take 1 tablet by mouth once daily as needed for pain Yue tracy Faricimab-S VOA (VABYSMO) 2 mg/0.05 mL Intravitrea l Vial - Physician Administere d ([id number]) 12-04 10:14: 43 No [id number] 12mg 12 mg, Physician Administer ed, ONCE, 1 dose, On Fri12/05/23 at 0930 Yue tracy Aspirin (Aspirin 81) 81 MG oral Tablet Delayed Response 12-04 10:13: 14 Yes 81mg QD Take 1 tablet (81 mg total) by mouth daily. Yue tracy [place]-3 Fatty Acids (Fish Oil) 1000 MG oral Capsule 12-04 10:13: 14 Yes [id number] 3 1000mg Q.5D Take 1 capsule (1,000 mg total) by mouth 2 times daily. Yue tracy Insulin Glargine (Lantus SoloStar) 100 UNIT/ML subcutaneou s Solution Pen-injecto r 7- 00:00: 00 Yes [id number] INJECT UNDER THE SKIN 70 UNITS DAILY IN MORNING AND 60 UNITS EVERY NIGHT. Yue tracy Meloxicam 15 MG oral Tablet 6-03 00:00: 00 Yes [id number] 15mg QD Take 1 tablet (15 mg total) by mouth daily as needed for pain. Yue tracy Valsartan-h ydroCHLOROt hiazide 320-25 MG oral Tablet 5-21 00:00: 00 06-04 00:00 :00 No [id number] 1{tbl} QD Take 1 tablet by mouth daily. Yue tracy Faricimab-S VOA (VABYSMO) 2 mg/0.05 mL Intravitrea l Vial - Physician Administere d ([id number]) 10-07 14:15: 00 10-07 14:09 :00 No [id number] 12mg 12 mg, Physician Administer ed, ONCE, 1 dose, On Fri10/08/23 at 0915 Yue tracy Empaglifloz in (Jardiance) 10 MG oral Tablet - 00:00: 00 02-03 00:00 :00 No [id number] 3 10mg QD Take 1 tablet (10 mg total) by mouth daily. Yue tracy Insulin Glargine (Lantus SoloStar) 100 UNIT/ML subcutaneou s Solution Pen-injecto r 4-11 00:00: 00 Yes [id number] Inject 70 units sc every am and 60 units sc every night. Yue tracy Gabapentin 300 MG oral Capsule 4-08 00:00: 00 06-04 00:00 :00 No [id number] 300mg Q.[id number] 3D Take 1 capsule (300 mg total) by mouth 3 times daily as needed. Yue tracy Faricimab-S VOA (VABYSMO) 2 mg/0.05 mL Intravitrea l Vial - Physician Administere d ([id number]) 08-12 16:00: 00 08-12 15:49 :00 No [id number] 12mg Yue Ashutosh - Externa l Bimatoprost (Lumigan) 0.01 % ophthalmic Solution 08-12 10:01: 55 Yes 750 1[drp] Place 1 drop into both eyes 2 times daily. Indication s: Glaucoma Yue Lipscombybyudelka - Externa l Aspirin (Aspirin 81) 81 MG oral Tablet Delayed Response 08-12 09:51: 18 Yes 81mg Take 1 tablet (81 mg total) by mouth daily. Yue Boykin - Externa l [place]-3 Fatty Acids (Fish Oil) 1000 MG oral Capsule 08-12 09:51: 18 Yes [id number] 3 1000mg Take 1 capsule (1,000 mg total) by mouth 2 times daily. Yue Boykin - Externa l Dorzolamide HCl 2 % ophthalmic Solution 08-04 00:00: 00 Yes [id number] 1[drp] Q.5D Place 1 drop into both eyes 2 times daily. Yue Boykin - Externa l Aspirin (Aspirin 81) 81 MG oral Tablet Delayed Response 08-03 13:51: 18 Yes 81mg Take 1 tablet (81 mg total) by mouth daily. Yue Ashutosh - Externa l [place]-3 Fatty Acids (Fish Oil) 1000 MG oral Capsule 08-03 13:51: 18 Yes [id number] 3 1000mg Take 1 capsule (1,000 mg total) by mouth 2 times daily. Yue Boykin - Externa l Bimatoprost (Lumigan) 0.01 % ophthalmic Solution 08-03 13:51: 18 Yes 750 1[drp] Place 1 drop into both eyes 2 times daily. Indication s: Glaucoma Yue Seybold - Externa l Meloxicam 15 MG oral Tablet 07-28 00:00: 00 Yes [id number] 15mg QD Take 1 tablet (15 mg total) by mouth daily as needed for pain. Yue Boykin - Externa l Insulin Glargine (Lantus SoloStar) 100 UNIT/ML subcutaneou s Solution Pen-injecto r 07-23 00:00: 00 Yes [id number] Inject 70 units sc every am and 60 units sc every night. Yue tracy Faricimab-S VOA (VABYSMO) 2 mg/0.05 mL Intravitrea l Vial - Physician Administere d ([id number]) 07-09 20:15: 00 07-09 20:21 :00 No [id number] 12mg Yue tracy Aspirin (Aspirin 81) 81 MG oral Tablet Delayed Response 07-09 13:59: 34 Yes 81mg Take 1 tablet (81 mg total) by mouth daily. Yue tracy Meloxicam 15 MG oral Tablet 07-09 13:59: 34 Yes [id number] 15mg Take 1 tablet (15 mg total) by mouth daily. Yue tracy [place]-3 Fatty Acids (Fish Oil) 1000 MG oral Capsule 07-09 13:59: 34 Yes [id number] 3 1000mg Take 1 capsule (1,000 mg total) by mouth 2 times daily. Yue tracy [place]-3 Fatty Acids (Fish Oil) 1000 MG oral Capsule 07-07 09:11: 58 Yes [id number] 3 1000mg Take 1 capsule (1,000 mg total) by mouth 2 times daily. Yue tracy Aspirin (Aspirin 81) 81 MG oral Tablet Delayed Response 07-07 08:52: 50 Yes 81mg Take 1 tablet (81 mg total) by mouth daily. Yue tracy Meloxicam 15 MG oral Tablet 07-07 08:52: 50 Yes [id number] 15mg Take 1 tablet (15 mg total) by mouth daily. Yue tracy Insulin Glargine (Lantus SoloStar) 100 UNIT/ML subcutaneou s Solution Pen-injecto r 07-07 00:00: 00 Yes [id number] Inject 70 units sc every am and 60 units sc every night. Yue tracy Gabapentin 300 MG oral Capsule 07-07 00:00: 00 Yes [id number] 300mg Q.5D Take 1 capsule (300 mg total) by mouth 2 times daily as needed (neuropath y). Yue tracy Metformin HCl 1000 MG oral Tablet 07-07 00:00: 00 06-04 00:00 :00 No [id number] 1000mg Q.5D Take 1 tablet (1,000 mg total) by mouth 2 times daily. Yue tracy Amlodipine Besylate 10 MG oral Tablet 07-07 00:00: 00 06-04 00:00 :00 No [id number] 10mg QD Take 1 tablet (10 mg total) by mouth daily. Yue tracy Gabapentin 300 MG oral Capsule 06-06 00:00: 00 07-07 00:00 :00 No [id number] 300mg Q.[id number] 3D Take 1 capsule (300 mg total) by mouth 3 times daily as needed. Yue tracy Faricimab-S VOA (VABYSMO) 2 mg/0.05 mL Intravitrea l Vial - Physician Administere d ([id number]) 2022-05 15:15: 00 05-21 15:09 :00 No [id number] 12mg Yue tracy Aspirin (Aspirin 81) 81 MG oral Tablet Delayed Response 2022-05 09:07: 38 Yes 81mg Take 1 tablet (81 mg total) by mouth daily. Yue tracy Aspirin (Aspirin 81) 81 MG oral Tablet Delayed Response 2022-05 10:15: 47 Yes 81mg Take 1 tablet (81 mg total) by mouth daily. Yue tracy Metformin HCl 1000 MG oral Tablet 2022-05 00:00: 00 07-07 00:00 :00 No [id number] 3 1000mg Take 1 tablet (1,000 mg total) by mouth 2 times daily. Yue tracy Bilateral: Dexamethaso ne [0.7 mg], 1.4mg Intravitrea l - Physician Administere d ([id number]) 2022-05 16:15: 00 04-09 16:13 :00 No [id number] 1.4mg Yue tracy Aspirin (Aspirin 81) 81 MG oral Tablet Delayed Response 2022-05 09:17: 25 Yes 81mg Take 1 tablet (81 mg total) by mouth daily. Yue tracy Bilateral: Bevacizumab (AVASTIN) [100 mg/4 mL], 2.5mg - Physician Administere d ([id number]) 2022-05 15:45: 00 03-12 16:11 :00 No [id number] 2.5mg Yue Conti l Aspirin (Aspirin 81) [...] MG oral Capsule 2022-05 00:00: 00 Yes [id number] 300mg Q.[id number] 3D Take 1 capsule (300 mg total) [...] 2022-05 00:00: 00 07-07 00:00 :00 No [id number] 2mg Take 1 tablet (2 mg total) by mouth at bedtime as needed for muscle spasms. Yue tracy Insulin Pen Needle (Pen [place]) 32G X 4 MM does not apply Misc Insulin Pen Needle (Pen [place]) 32G X 4 MM does not apply Misc 2022-05 00:00: 00 Yes [id number] 3 70U Q.5D Inject 70 units into the skin 2 times daily Provide what insurance covers. Thank you.. Yue tracy Bilateral: Bevacizumab (AVASTIN) [100 mg/4 mL], 2.5mg - Physician Administere d ([id number]) 02-12 15:30: 00 02-12 15:21 :00 No [id number] 2.5mg Yue tracy Aspirin (Aspirin 81) 81 [...] 02-07 00:00: 00 03-10 00:00 :00 No [id number] .25mg QD Take 1 tablet (0.25 mg total) by mouth daily as needed for anxiety. Yue tracy Metformin HCl 1000 MG oral Tablet 01-20 00:00: 00 Yes [id number] 3 1000mg TAKE 1 TABLET BY MOUTH TWICE A DAY Yue Cummingsa l Bilateral: Bevacizumab (AVASTIN) [100 mg/4 mL], 2.5mg - Physician Administere d ([id number]) 01-15 14:00: 00 01-15 13:57 :00 No [id number] 2.5mg Yue nandoyudelka Kiki Cummingsa demarcus Aspirin (Aspirin 81) 81 MG oral Tablet Delayed Response 01-15 07:57: 46 Yes 81mg Take 1 tablet (81 mg total) by mouth daily. Yeu Swanson Externa demarcus Cholecalcif pat (D3 5000) 125 MCG (5000 [...] MG oral Tablet 12-09 00:00: 00 Yes [id number] 3 10mg QD Take 1 tablet (10 mg total) by mouth nightly Yue tracy Gabapentin 100 MG oral Capsule - 00:00: 00 03-10 00:00 :00 No [id number] 100mg Q.[id number] 3D Take 1 capsule (100 mg total) by mouth 3 times daily as needed Yue tracy Metformin HCl 1000 MG oral Tablet 10-23 00:00: 00 Yes [id number] 3 1000mg Take 1 tablet (1,000 mg total) by mouth 2 times daily Yue tracy Valsartan-h ydroCHLOROt hiazide 320-25 MG oral Tablet - 00:00: 00 Yes [id number] 1{tbl} Take 1 tablet by mouth daily Yue tracy Amlodipine Besylate 10 MG oral Tablet 10-07 00:00: 00 07-07 00:00 :00 No [id number] 10mg Take 1 tablet (10 mg total) [...] MG oral Tablet 09-09 00:00: 00 Yes [id number] 3 10mg Take 1 tablet (10 mg total) by mouth daily Yue tracy Gabapentin 100 MG oral Capsule - 00:00: 00 Yes [id number] 100mg Q.[id number] 3D Take 1 capsule (100 mg total) by mouth 3 times daily as needed Yue tracy Meloxicam 15 MG oral Tablet 09-09 00:00: 00 03-10 00:00 :00 No [id number] 15mg QD Take 1 tablet (15 mg total) by mouth daily as needed for pain Yue tracy Simvastatin 10 MG oral Tablet 09-09 00:00: 00 12-09 00:00 :00 No [id number] 3 10mg Take 1 tablet (10 mg total) by mouth nightly Yue tracy Gabapentin 100 MG oral Capsule 08-25 00:00: 00 09-09 00:00 :00 No Yue tracy Insulin Glargine (Lantus SoloStar) 100 UNIT/ML subcutaneou s Solution Pen-injecto r 06-27 00:00: 00 07-07 00:00 :00 No [id number] Inject 70 units twice daily Yue tracy [...] Take 1 tablet by mouth daily Yue Ashutosh Cummingsmichelle demarcus Amlodipine Besylate 10 MG oral Tablet 05-29 00:00: 00 Yes 1{tbl} Take 1 tablet by mouth daily Yue tracy Simvastatin 10 MG oral Tablet 05-29 00:00: 00 Yes 1{tbl} Take 1 tablet by mouth nightly Yue tracy Metformin HCl 1000 MG oral Tablet 05-29 00:00: 00 Yes 1000mg Take 1 tablet (1,000 mg total) by mouth 2 times daily Yue Swanson Sushila demarcus Amlodipine Besylate 10 MG oral Tablet 05-29 00:00: 00 Yes 10mg Take 1 tablet (10 mg total) by mouth daily Yue tracy Simvastatin 10 MG oral Tablet 05-29 00:00: 00 09-09 00:00 :00 No 10mg Take 1 tablet (10 mg total) by mouth nightly Yue tracy Bimatoprost (Lumigan) 0.01 % ophthalmic Solution 05-27 00:00: 00 10-06 00:00 :00 No 750 1[drp] Place 1 drop into both eyes 2 times daily. Indication s: Glaucoma jorje Acuna, 100 UNIT/ML subcutaneou s Solution Pen-injecto r 2021-05 00:00: 00 Yes 70U Inject 70 units into the skin 2 times daily Yue tracy Immunizations Ordered Immunization Name Filled Immunization Name Date Status Comments Source COVID-19 Vaccine(Moove In)(12y rs+) COVID-19 Vaccine(Moove In)(12y rs+) 2024-06-04 00:00:00 Completed Yue Al Tdap- (Boostrix, Adacel) Tdap- (Boostrix, Adacel) 2024-01-28 00:00:00 Completed Yue Al Influenza Virus Vaccine, High Dose, Age 65 And Up Influenza Virus Vaccine, High Dose, Age 65 And Up 2024-01-28 00:00:00 Completed Yue Al Covid-19 Vaccine (Moove In), Mrna-lnp, Boris Protein, Pf, 30mcg/0.3ml,IM Covid-19 Vaccine (Pfizer), Mrna-lnp, Boris Protein, Pf, 30mcg/0.3ml,IM 2023-05-22 00:00:00 Completed Yue Seybold - External COVID-19 Vaccine(Moove In)(12y rs+) COVID-19 Vaccine(Moove In)(12y rs+) 2023-05-22 00:00:00 Completed Yue Seybold - External Pneumococcal Vaccine, Conjugate 20 Pneumococcal Vaccine, Conjugate 20 2023-04-05 00:00:00 Completed Yue ybold - External Influenza Virus Vaccine, Quadrivalent, High Dose, Age 65 And Up Influenza Virus Vaccine, Quadrivalent, High Dose, Age 65 And Up 2023-02-11 00:00:00 Completed Yue ybold - External RSV, Abrysvo RSV, Abrysvo 2023-02-11 00:00:00 Completed Yue Seybold - External Influenza Virus Vaccine, High Dose, Age 65 And Up Influenza Virus Vaccine, High Dose, Age 65 And Up 2023-02-10 00:00:00 Completed Yue ybold - External RSV, unspecified formulation RSV, unspecified formulation 2023-02-10 00:00:00 Completed Yue ybold - External RSV, unspecified formulation Unknown Completed Yue Seybold - External Influenza Virus Vaccine, Quadrivalent, High Dose, Age 65 And Up Unknown Completed Yue S eybold - External RSV, Abrysvo Unknown Completed Yue ybold - External Pneumococcal Vaccine, Conjugate 20 Unknown Completed Yue Lipscombybold - External Covid-19 Vaccine (Moove In), Mrna-lnp, Boris Protein, Pf, 30mcg/0.3ml,IM Unknown Completed Yue nandool d - External COVID-19 Vaccine(Moove In)(12y rs+) Unknown Completed Yue [facility] - External Tdap- (Boostrix, Adacel) Unknown Completed Yue Seybold - External Influenza Virus Vaccine, High Dose, Age 65 And Up Unknown Completed Yue ybold - External RSV, unspecified formulation Unknown Completed Yue Seybold - External Influenza Virus Vaccine, Quadrivalent, High Dose, Age 65 And Up Unknown Completed Yue S eybold - External RSV, Abrysvo Unknown Completed Yue Seybold - External Pneumococcal Vaccine, Conjugate 20 Unknown Completed Yue Seybold - External Covid-19 Vaccine (Pfizer), Mrna-lnp, Boris Protein, Pf, 30mcg/0.3ml,IM Unknown Completed Yue Seybol d - External COVID-19 Vaccine(Pfizer)(12y rs+) Unknown Completed Yue Seybold - External Tdap- [...] Completed Yue Seybol d - External COVID-19 Vaccine(Pfizer)(12y rs+) Unknown Completed Yue Seybold - External Tdap- [...] Completed Yue Seybol d - External COVID-19 Vaccine(Pfizer)(12y rs+) Unknown Completed Yue Seybold - External Tdap- [...] Completed Yue Seybol d - External COVID-19 Vaccine(Pfizer)(12y rs+) Unknown Completed Yue Seybold - External Tdap- [...] Completed Yue Seybol d - External COVID-19 Vaccine(Pfizer)(12y rs+) Unknown Completed Yue Seybold - External Tdap- [...] Completed Yue Seybol d - External COVID-19 Vaccine(Pfizer)(12y rs+) Unknown Completed Yue Seybold - External Tdap- [...] Completed Yue Seybol d - External COVID-19 Vaccine(Pfizer)(12y rs+) Unknown Completed Yue Seybold - External Tdap- [...] Completed Yue Seybol d - External COVID-19 Vaccine(Pfizer)(12y rs+) Unknown Completed Yue Seybold - External Tdap- [...] Mrna-lnp, Boris Protein, Pf, 30mcg/0.3ml,IM Unknown Completed Uye Seybol d - External COVID-19 Vaccine(Pfizer)(12y rs+) Unknown Completed Yue Seybold - External Tdap- [...] Completed Yue Seybol d - External COVID-19 Vaccine(Pfizer)(12y rs+) Unknown Completed Yue Seybold - External Tdap- [...] Completed Yue Seybol d - External COVID-19 Vaccine(Pfizer)(12y rs+) Unknown Completed Yue Seybold - External Tdap- [...] Completed Yue Seybol d - External COVID-19 Vaccine(Pfizer)(12y rs+) Unknown Completed Yue Seybold - External Tdap- [...] Completed Yue Seybol d - External COVID-19 Vaccine(Pfizer)(fal l 2022)(12yrs+) Unknown Completed Yue Lipscom[facility] ld - External Influenza Virus Vaccine, High Dose, [...] Boris Protein, Pf, 30mcg/0.3ml,IM Unknown Completed Yue Lipscombybol d - External COVID-19 Vaccine(Pfizer)([facility] 2022)(12yrs+) Unknown Completed Yue ybo ld - External Influenza Virus Vaccine, High Dose, Age 65 And Up Unknown Completed Yue Seybold - External RSV, unspecified formulation Unknown Completed Yue Seybold - External Influenza Virus Vaccine, Quadrivalent, High Dose, Age 65 And Up Unknown Completed Yue S eybold - External RSV, Abrysvo [facility], [facility] 20 [facility] (Pfizer), Mrna-lnp, Boris Protein, Pf, 30mcg/0.3ml,IM Unknown Completed Yue Lipscombol d - External COVID-19 Vaccine(Pfizer)([facility] 2022)(12yrs+) Unknown Completed Yue Lipscombo ld - External Influenza Virus Vaccine, High Dose, Age 65 And Up Unknown [facility], unspecified formulation Unknown Completed Yue Seybold - External Influenza Virus Vaccine, Quadrivalent, High Dose, Age 65 And Up Unknown Completed Yue S eybold - External RSV, Abrysvo Unknown [facility] Pneum[facility] Vaccine, Conjugate 20 Unknown [facility] Cov[facility]-19 Vaccine (Pfizer), Mrna-lnp, Boris Protein, Pf, 30mcg/0.3ml,IM Unknown Completed Yue ybol d - External COVID-19 Vaccine(Pfizer)(12y rs+) Unknown Completed [facility] - External Tdap- (Boostrix, Adacel) Unknown Completed Yue Seybold - External Influenza Virus Vaccine, High Dose, Age 65 And Up Unknown [facility], unspecified formulation Unknown Completed Yue Seybold - External Influenza Virus Vaccine, Quadrivalent, High Dose, Age 65 And Up Unknown Completed Yue S eybold - External RSV, Abrysvo Unknown Completed Yue Seybold - External Pneumococcal Vaccine, Conjugate 20 Unknown Completed Yue Chandlerold - External Covid-19 Vaccine (Moove In), Mrna-lnp, Boris Protein, Pf, 30mcg/0.3ml,IM Unknown Completed Yue Chandlerol d - External COVID-19 Vaccine(Moove In)(12y rs+) Unknown Completed Yue Boykin - External Tdap- (Boostrix, Adacel) Unknown Completed Yue Boykin - External Influenza Virus Vaccine, High Dose, Age 65 And Up Unknown Completed Yue Boykin - External Vital Signs Vital Name Observation Time Observation Value Comments S ource Systolic blood pressure 2024-12-06 13:57:00 130 mm[Hg] Yue Chandlero ld - External Diastolic blood pressure 2024-12-06 13:57:00 86 mm[Hg] Yue Chandlero ld - External Heart rate 2024-12-06 13:57:00 88 /min Miguel A y Seybold - External Body temperature 2024-12-06 13:57:00 36.28 Bernarda Yue Lipscombybold - External Respiratory rate 2024-12-06 13:57:00 18 /min Yue Chandlerold - External Body height 2024-12-06 13:57:00 160 cm Consuelo Boykin - External Body weight 2024-12-06 13:57:00 93.441 kg Consuelo bal Seybold - External BMI 2024-12-06 13:57:00 36.49 kg/m2 Consuelo bal Seybold - External Oxygen saturation in Arterial blood by Pulse oximetry 2024-12-06 13:57:00 97 /min Yue Chandlero ld - External Systolic blood pressure 2024-11-09 20:10:00 136 mm[Hg] Yue Chandlero ld - External Diastolic blood pressure 2024-11-09 20:10:00 86 mm[Hg] Yue Lipscombybo ld - External Heart rate 2024-11-09 20:10:00 89 /min Nahumse y Seybold - External Body temperature 2024-11-09 20:10:00 36.28 Bernarda Yue Seybold - External Respiratory rate 2024-11-09 20:10:00 16 /min Yue Lipscombybold - External Body height 2024-11-09 20:10:00 160 cm Consuelo ey Seybold - External Body weight 2024-11-09 20:10:00 94.439 kg Consuelo ey Seybold - External BMI 2024-11-09 20:10:00 36.88 kg/m2 Consuelo ey Seybold - External Oxygen saturation in Arterial blood by Pulse oximetry 2024-11-09 20:10:00 96 /min Yue Seybo ld - External Systolic blood pressure 2024-09-06 14:03:00 132 mm[Hg] Yue Seybo ld - External Diastolic blood pressure 2024-09-06 14:03:00 85 mm[Hg] Yue Seybo ld - External Heart rate 2024-09-06 14:01:00 82 /min Kelse y Seybold - External Body temperature 2024-09-06 14:01:00 36.39 Bernarda Yue Seybold - External Respiratory rate 2024-09-06 14:01:00 16 /min Yue Seybold - External Body height 2024-09-06 14:01:00 160 cm Consuelo ey Seybold - External Body weight 2024-09-06 14:01:00 94.348 kg Consuelo ey Seybold - External BMI 2024-09-06 14:01:00 36.85 kg/m2 Consuelo ey Seybold - External Oxygen saturation in Arterial blood by Pulse oximetry 2024-09-06 14:01:00 96 /min Yue Seybo ld - External Systolic blood pressure 2024-08-06 14:31:00 136 mm[Hg] Yue Seybo ld - External Diastolic blood pressure 2024-08-06 14:31:00 80 mm[Hg] Yue Seybo ld - External Heart rate 2024-08-06 14:31:00 132 /min Kelse y Seybold - External Body temperature 2024-08-06 14:31:00 36.5 Bernarda Yue Seybold - External Respiratory rate 2024-08-06 14:31:00 18 /min Yue Seybold - External Body height 2024-08-06 14:31:00 167.6 [...] External Heart rate 2024-06-04 14:38:00 110 /min Nahumse y Seybold - External Body temperature 2024-06-04 [...] Pulse oximetry 2024-06-04 14:38:00 94 /min Yue Lipscombybo ld - External Systolic blood pressure 2024-02-04 15:06:00 140 mm[Hg] Yue Seybo ld - External Diastolic blood pressure 2024-02-04 15:06:00 79 mm[Hg] Yue Lipscombybo ld - External Heart rate 2024-02-04 15:06:00 106 /min Nahumse y Seybold - External Body temperature 2024-02-04 [...] Pulse oximetry 2024-02-04 15:06:00 100 /min Yue Seybo ld - External Systolic blood pressure 2023-10-07 [...] Pulse oximetry 2023-10-07 14:56:00 96 /min Yue Seybo ld - External Systolic blood pressure 2023-07-07 14:48:00 129 mm[Hg] Yue Seybo ld - External Diastolic blood pressure 2023-07-07 14:48:00 78 mm[Hg] Yue Seybo ld - External Heart rate 2023-07-07 14:48:00 [...] blood pressure 2023-05-06 16:53:00 130 mm[Hg] Yue Lipscombybo ld - External Diastolic blood pressure 2023-05-06 [...] blood pressure 2022-06-11 16:19:00 138 mm[Hg] Yue Seybo ld - External Diastolic blood pressure 2022-06-11 16:19:00 72 mm[Hg] Yue Joseph ld - External Heart rate 2022-06-11 15:23:00 79 /min Miguel A Boykin - External Body temperature 2022-06-11 15:23:00 36.39 Bernarda Yue Boykin - External Respiratory rate 2022-06-11 15:23:00 14 /min Yue Boykin - External Body height 2022-06-11 15:23:00 167.6 cm Consuelo Boykin - External Body weight 2022-06-11 15:23:00 92.534 kg Consuelo Boykin - External BMI 2022-06-11 15:23:00 32.93 kg/m2 Consuelo Boykin - External Oxygen saturation in Arterial blood by Pulse oximetry 2022-06-11 15:23:00 99 /min Yeu Joseph ld - External Procedures Procedure Date / Time Performed Performing Clinician Source SEQUENTIAL RIGHT CATARACT EXTRACTION BY PHACOEMULSIFICATION WITH INTRAOCULAR LENS IMPLANT PLACEMENT 2025-01-20 09:55:00 Wade Leblanc Ashutosh - External SEQUENTIAL RIGHT CATARACT EXTRACTION BY PHACOEMULSIFICATION WITH INTRAOCULAR LENS IMPLANT PLACEMENT 2025-01-20 09:55:00 Wade Leblanc nandoyudelka - External QUANTAFLO 2022-06-11 16:41:33 Delilah Yoder Somogyi Yueshelley Boykin - External INTRAVITREAL NJX PHARMACOLOGIC AGT SPX Yue Chandlerold - External INTRAVITREAL NJX PHARMACOLOGIC AGT SPX Yue Boykin - External FUNDUS PHOTOS COMPLETE(GLOBAL) Yue evangelina - External CPTRIZED OPH DX IMG PST SEGMENT UNI/BI RETINA Yueshelley Boykin - External INTRAVITREAL NJX PHARMACOLOGIC AGT SPX Yue Chandlerold - External Plan of Care Planned Activity Planned Date Details Comments Source Encounters Start Date/Time End Date/Time Encounter Type Admission Type Attending Clinicians Care Facility Care Department Encounter ID Source 2025-07-27 10:40:00 2025-07-27 10:40:00 Outpatient GIO CORDERO [id number] Yue Boykin 2025-06-01 11:20:00 2025-06-01 11:20:00 Outpatient GIO CORDERO [id number] Yue Boykin 2025-04-06 09:20:00 2025-04-06 09:20:00 Outpatient UDOETUK, GIO YUE PORTER [id number] [facility] 2025-03-09 11:10:00 2025-03-09 11:10:00 Outpatient UDOETUK, GIO YUE PORTER [id number] [facility] 2025-03-08 15:00:00 2025-03-08 15:00:00 Outpatient PREZASABEBA YUE PORTER [id number] [facility] 2025-02-28 00:00:00 2025-02-28 00:00:00 Outpatient PREZAS, ABEBA PORTER [id number] Y[facility] 2025-02-23 09:40:00 2025-02-23 09:40:00 Outpatient UDOETUK, GIOTRES PORTER [id number] [facility] 2025-02-18 10:30:00 2025-02-18 10:30:00 Outpatient TIE, WADE PORTER [id number] Y[facility] 2025-02-09 11:10:00 2025-02-09 11:10:00 Outpatient UDOETUK, GIO YUE PORTER [id number] [facility] 2025-02-09 10:55:00 2025-02-09 10:55:00 Outpatient 1KUNAL [id number] Yue [facility] 2025-01-26 09:50:00 2025-01-26 09:50:00 Outpatient UDOETUK, GIO YUE PORTER [id number] [facility] 2025-01-21 15:00:00 2025-01-21 15:00:00 Outpatient TIE, WADE PORTER [id number] [facility] 2025-01-21 14:15:00 2025-01-21 14:15:00 [facility]IE[id number] [facility]25-01-21 10:00:00 2025-01-21 10:00:00 Outpatient CLIFTONBROOKE [id number] [facility]25-[facility]-20 07:30:00 2025-01-20 07:30:00 Outpatient TIE, WADE YUE PORTER [id number] [facility] 2025-01-12 11:30:00 2025-01-12 11:30:00 Outpatient UDOETGIO VENTURA YUE PORTER [id number] [facility] 2025-01-12 10:00:00 2025-01-12 10:00:00 Outpatient UDOETUK, GIO YUE PORTER [id number] [facility] 2025-01-11 00:00:00 2025-01-11 00:00:00 Outpatient CARLTONMAGDALENO YUE PORTER [id number] Y[facility] 2024-12-31 14:45:00 2024-12-31 14:45:00 Outpatient TIE, WADE PORTER [id number] [facility] 2024-12-24 15:30:00 2024-12-24 15:30:00 Outpatient TIE, WADE YUE PORTER [id number] [facility] 2024-12-23 00:00:00 2024-12-23 00:00:00 Outpatient MD YUE JOHNSON [id number] [facility] 2024-12-23 00:00:00 2024-12-23 00:00:00 Outpatient MD YUE JOHNSON [id number] [facility] 2024-12-22 09:50:00 2024-12-22 09:50:00 Outpatient UDALYSSIATGIO VENTURA YUE PORTER [id number] [facility] 2024-12-21 15:00:00 2024-12-21 15:00:00 Outpatient PREZAABEBA Deal [id number] Y[facility] 2024-12-14 00:00:00 2024-12-14 00:00:00 Outpatient YUE PORTER [id number] Yue Boykin 2024-12-06 09:40:00 2024-12-06 09:40:00 Outpatient [id number] YUE PORTER [id number] [facility] 2024-12-06 09:00:00 2024-12-06 09:00:00 Outpatient PREZAABEBA Deal YUE [id number] [facility] 2024-12-06 00:00:00 2024-12-06 00:00:00 Outpatient PREZAS, ABEBA PORTER YUE [id number] [facility] 2024-12-02 00:00:00 2024-12-02 00:00:00 Outpatient PREZASay, ABEBA PORTER YUE [id number] [facility] 2024-11-24 09:20:00 2024-11-24 09:20:00 Outpatient UDOETGIO VENTURA [id number] [facility] 2024-11-24 09:00:00 2024-11-24 09:00:00 Outpatient 1, OPTICAL YUE PORTER [id number] [facility] 2024-11-09 15:15:00 2024-11-09 15:15:00 Outpatient PREZASay, ABEBA YUE YUE [id number] [facility] 2024-11-04 14:50:00 2024-11-04 14:50:00 Outpatient [id number] YUE PORTER [id number] [facility] 2024-10-28 00:00:00 2024-10-28 00:00:00 Outpatient YUE PORTER [id number] [facility] 2024-10-27 10:50:00 2024-10-27 10:50:00 Outpatient UDOETGIO VENTURA [id number] [facility] 2024-10-27 10:40:00 2024-10-27 10:40:00 Outpatient UDOETGIO VENTURA [id number] [facility] 2024-10-23 00:00:00 2024-10-23 00:00:00 Outpatient PREZAABEBA Deal YUE PORTER [id number] [facility] 2024-10-15 00:00:00 2024-10-15 00:00:00 Outpatient YUE PORTER [id number] Yue Seybold 2024-10-15 00:00:00 2024-10-15 00:00:00 Outpatient YUE PORTER [id number] [facility] 2024-10-08 00:00:00 2024-10-08 00:00:00 Outpatient PREZAABEBA Deal YUE [id number] Yue Seybold 2024-10-07 00:00:00 2024-10-07 00:00:00 Outpatient YUE YUE [id number] [facility]ue Seyby[facility]el[facility] 2024-10-05 11:30:00 2024-10-05 11:30:00 Outpatient PREZASABEBA YUE [id number] [facility] 2024-10-05 00:00:00 2024-10-05 00:00:00 Outpatient YUE YUE [id number] [facility] 2024-10-02 00:00:00 2024-10-02 00:00:00 Outpatient YUE PORTER [id number] Yue Seybold 2024-10-01 13:15:00 2024-10-01 13:15:00 Outpatient TIE, WADE YUE PORTER [id number] [facility] Seybold 2024-10-01 10:00:00 2024-10-01 10:00:00 Outpatient SHON MAZARIEGOS YUE [id number] [facility]ue Seybold 2024-09-30 09:00:00 2024-09-30 09:00:00 Outpatient TIE, WADE YUE PORTER [id number] [facility] Seybold 2024-09-30 00:00:00 2024-09-30 00:00:00 Outpatient TIE, WADE PORTER YUE [id number] [facility]ue Seybold 2024-09-30 00:00:00 2024-09-30 00:00:00 Outpatient PREZASABEBA YUE [id number] [facility]ue Seybold 2024-09-22 10:00:00 2024-09-22 10:00:00 Outpatient GIO CORDERO [id number] [facility]ue Seybold 2024-09-22 00:00:00 2024-09-22 00:00:00 Outpatient GRACIELA DUNN [id number] [facility] 2024-09-14 00:00:00 2024-09-14 00:00:00 Outpatient PREZAABEBA Deal YUE PORTER [id number] [facility] 2024-09-10 00:00:00 2024-09-10 00:00:00 Outpatient TIE, WADE YUE PORTER [id number] [facility] 2024-09-08 10:45:00 2024-09-08 10:45:00 Outpatient MAC, EKG- YUE PORTER [id number] [facility] 2024-09-08 09:45:00 2024-09-08 09:45:00 Outpatient TIE, WADE YUE PORTER [id number] [facility] 2024-09-06 09:00:00 2024-09-06 09:00:00 Outpatient PREZASABBEA YUE PORTER [id number] [facility] 2024-09-06 00:00:00 2024-09-06 00:00:00 Outpatient YUE PORTER [id number] [facility] 2024-09-01 08:05:00 2024-09-01 08:05:00 Outpatient [id number] YUE PORTER [id number] [facility] 2024-08-30 00:00:00 2024-08-30 00:00:00 Outpatient YEISON NARGIS YUE PORTER [id number] [facility] 2024-08-30 00:00:00 2024-08-30 00:00:00 Outpatient YUE PORTER [id number] [facility] 2024-08-25 13:40:00 2024-08-25 13:40:00 Outpatient GIO CORDERO [id number] [facility] 2024-08-25 13:30:00 2024-08-25 13:30:00 Outpatient 1, OPTICAL YUE PORTER [id number] [facility] 2024-08-25 09:50:00 2024-08-25 09:50:00 Outpatient GIO CORDERO [id number] Yue Seybold 2024-08-23 09:50:00 2024-08-23 09:50:00 Outpatient UDOETUK, GIO YUE PORTER [id number] [facility] Sey[facility] 2024-08-06 09:30:00 2024-08-06 09:30:00 Outpatient PREZAS, ABEBA YUE PORTER [id number] [facility] Sey[facility] 2024-07-21 14:15:00 2024-07-21 14:15:00 Outpatient TIE, WADE YUE PORTER [id number] [facility] Sey[facility] 2024-07-21 14:15:00 2024-07-21 14:15:00 Outpatient 1, OPTICAL YUE PORTER [id number] Yue Seybold 2024-06-10 00:00:00 2024-06-10 00:00:00 Outpatient YUE PORTER [id number] [facility] 2024-06-07 00:00:00 2024-06-07 00:00:00 Outpatient PREZAS, ABEBA YUE PORTER [id number] [facility] 2024-06-04 08:45:00 2024-06-04 08:45:00 Outpatient PREZAS, ABEBA YUE PORTER [id number] [facility] 2024-06-03 00:00:00 2024-06-03 00:00:00 Outpatient PREZAS, ABEBA YUE PORTER [id number] [facility] 2024-06-01 09:30:00 2024-06-01 09:30:00 Outpatient LAB90 YUE PORTER [id number] [facility] 2024-05-05 10:20:00 2024-05-05 10:20:00 Outpatient UDOETUK, GIO YUE PORTER [id number] [facility] 2024-05-05 09:35:00 2024-05-05 09:35:00 Outpatient 1, OPTICAL YUE PORTER [id number] [facility] 2024-05-04 00:00:00 2024-05-04 00:00:00 Outpatient PREZAS, ABEBA PORTER [id number] [facility] 2024-04-06 00:00:00 2024-04-06 00:00:00 Outpatient PREZAS, ABEBA YUE PORTER [id number] [facility] 2024-03-31 00:00:00 2024-03-31 00:00:00 Outpatient MD YUE JOHNSON [id number] [facility] 2024-03-03 00:00:00 2024-03-03 00:00:00 Outpatient PREZAS, ABEBA YUE PORTER [id number] Yue Seybold 2024-02-09 13:10:00 2024-02-09 13:10:00 Outpatient UDOETUK, GIO PORTER [id number] Yue Seybold 2024-02-09 12:45:00 2024-02-09 12:45:00 Outpatient KUNAL Manning YUE PORTER [id number] [facility] 2024-02-09 11:00:00 2024-02-09 11:00:00 Outpatient GRACIELA DUNN [id number] Yue Seybold 2024-02-04 10:00:00 2024-02-04 10:00:00 Outpatient PREZAS, ABEBA YUE PORTER [id number] [facility] 2024-02-02 00:00:00 2024-02-02 00:00:00 Outpatient PREZAS, ABEBA YUE PORTER [id number] Yue Seybold 2024-01-30 10:00:00 2024-01-30 10:00:00 Outpatient LAB90 YUE PORTER [id number] Yue Seybold 2024-01-28 09:50:00 2024-01-28 09:50:00 Outpatient UDOETUK, GIO YUE PORTER [id number] Yue Seybold 2024-01-26 00:00:00 2024-01-26 00:00:00 Outpatient PREZAS, ABEBA YUE PORTER [id number] Yue Seybold 2023-12-07 00:00:00 2023-12-07 00:00:00 Outpatient ANDRA OCAMPO [id number] Yue Seybold 2023-12-05 10:00:00 2023-12-05 10:00:00 Outpatient UDOETUK, GIO PORTER YUE [id number] [facility] 2023-12-03 09:40:00 2023-12-03 09:40:00 Outpatient UDOETUK, GIO PORTER YUE [id number] Yue Seybyudelka 2023-11-24 00:00:00 2023-11-24 00:00:00 Outpatient PREZAS, ABEBA PORTER YUE [id number] [facility] 2023-10-27 00:00:00 2023-10-27 00:00:00 Outpatient PREZAS, ABEBA PORTER YUE [id number] [facility] 2023-10-13 00:00:00 2023-10-13 00:00:00 Outpatient PREZAS, ABEBA YUE YUE [id number] [facility] 2023-10-08 08:50:00 2023-10-08 08:50:00 Outpatient UDOETUK, GIO YUE YUE [id number] [facility] 2023-10-07 10:00:00 2023-10-07 10:00:00 Outpatient PREZAS, ABEBA YUE PORTER [id number] [facility] 2023-09-15 00:00:00 2023-09-15 00:00:00 Outpatient PREZAS, ABEBA YUE PORETR [id number] [facility] 2023-09-13 00:00:00 2023-09-13 00:00:00 Outpatient PREZAS, ABEBA YUE PORTER [id number] [facility] 2023-09-03 00:00:00 2023-09-03 00:00:00 Outpatient PREZAS, ABEBA YUE PORTER [id number] Yue Seybold 2023-09-01 00:00:00 2023-09-01 00:00:00 Outpatient PREZAS, ABEBA YUE PORTER [id number] Yue Seybold 2023-08-22 09:35:00 2023-08-22 09:35:00 Outpatient LAB90 YUE PORTER [id number] Yue Seybold 2023-08-13 09:55:00 2023-08-13 09:55:00 Outpatient 1KUNAL YUE PORTER [id number] Yue Seybold 2023-08-13 09:50:00 2023-08-13 09:50:00 Outpatient UDGIO LOGAN YUE PORTER [id number] Yue Seybold 2023-08-05 14:00:00 2023-08-05 14:00:00 Outpatient GRACIELA DUNN YUE PORTER [id number] Yue Seybold 2023-08-05 13:00:00 2023-08-05 13:00:00 Outpatient VFLanden YUE PORTER [id number] Yue Seybold 2023-08-04 00:00:00 2023-08-04 00:00:00 Outpatient PREZASay, ABEBA YUE PORTER [id number] Yue Seybold 2023-08-04 00:00:00 2023-08-04 00:00:00 Outpatient PREZASABEBA YUE PORTER [id number] Yue Seybold 2023-07-28 00:00:00 2023-07-28 00:00:00 Outpatient PREZAS, ABEBA YUE PORTER [id number] Yue Seybold 2023-07-22 00:00:00 2023-07-22 00:00:00 Outpatient PREZAABEBA Deal YUE PORTRE [id number] Yue Seybold 2023-07-20 00:00:00 2023-07-20 00:00:00 Outpatient BLAKE YODER [id number] Yue Seybold 2023-07-17 00:00:00 2023-07-17 00:00:00 Outpatient BLAKE YODER [id number] Yue Seybold 2023-07-16 00:00:00 2023-07-16 00:00:00 Outpatient YUE PORTER [id number] Yue Seybold 2023-07-11 00:00:00 2023-07-11 00:00:00 Outpatient PREZAS, ABEBA YUE PORTER [id number] Yue Seybold 2023-07-09 14:20:00 2023-07-09 14:20:00 Outpatient UDOETUK, GIO YUE PORTER [id number] [facility]ue [facility] 2023-07-08 11:20:00 2023-07-08 11:20:00 Outpatient GRACIELA DUNN YUE PORTER [id number] [facility] 2023-07-08 10:00:00 2023-07-08 10:00:00 Outpatient TRUDY YUE PORTER [id number] [facility] 2023-07-07 09:00:00 2023-07-07 09:00:00 Outpatient PREZAABEBA Deal YUE PORTER [id number] Yue ybyudelka 2023-07-02 10:20:00 2023-07-02 10:20:00 Outpatient UDOETDOM VENTURASHUA YUE PORTER [id number] [facility] 2023-06-06 00:00:00 2023-06-06 00:00:00 Outpatient PREZAS, ABEBA PORTER [id number] [facility] 2023-05-23 00:00:00 2023-05-23 00:00:00 Outpatient PREZAS, ABEBAVIDAL PORTER [id number] [facility] 2023-05-22 08:50:00 2023-05-22 08:50:00 Outpatient EDGAR YUE PORTER [id number] [facility] 2023-05-21 09:30:00 2023-05-21 09:30:00 Outpatient DOM CORDEROSHUA YUE PORTER [id number] [facility] 2023-05-16 10:45:00 2023-05-16 10:45:00 Outpatient ADALBERTO GALINDO YUE PORTER [id number] [facility] 2023-05-16 00:00:00 2023-05-16 00:00:00 Outpatient PREZASay ABEBA PORTER [id number] [facility] 2023-05-09 09:15:00 2023-05-09 09:15:00 Outpatient PREZAS, ABEBAVIDAL PORTER [id number] [facility] 2023-05-06 10:00:00 2023-05-06 10:00:00 Outpatient PREZAS, ABEBA YUE YUE [id number] [facility] 2023-04-17 00:00:00 2023-04-17 00:00:00 Outpatient PREABEBA JAUREGUI YUE [id number] [facility] 2023-04-09 10:00:00 2023-04-09 10:00:00 Outpatient GIO CORDERO YUE PORTER [id number] [facility] 2023-04-09 09:20:00 2023-04-09 09:20:00 Outpatient KUNAL Manning YUE YUE [id number] [facility] 2023-03-12 11:20:00 2023-03-12 11:20:00 Outpatient LEDYTGIO VENTURA YUE PORTER [id number] [facility] 2023-03-10 14:30:00 2023-03-10 14:30:00 Outpatient ADALBERTO GALINDO [id number] [facility] 2023-03-10 08:45:00 2023-03-10 08:45:00 Outpatient PREABEBA JAUREGUI YUE PORTER [id number] [facility] 2023-03-07 10:15:00 2023-03-07 10:15:00 Outpatient ADALBERTO GALINDO YUE PORTER [id number] [facility] 2023-03-07 10:10:00 2023-03-07 10:10:00 Outpatient YUE PORTER [id number] Yue Seybold 2023-03-07 10:05:00 2023-03-07 10:05:00 Outpatient YUE PORTER [id number] Yue Seybold 2023-03-06 00:00:00 2023-03-06 00:00:00 Outpatient PREABEBA JAUREGUI YUE PORTER [id number] Yue Seybold 2023-02-18 00:00:00 2023-02-18 00:00:00 Outpatient PREABEBA JAUREGUI YUE PORTER [id number] Yue Seybold 2023-02-14 00:00:00 2023-02-14 00:00:00 Outpatient YUE PORTER [id number] Yue Seybold 2023-02-13 00:00:00 2023-02-13 00:00:00 Outpatient PREZAS, ABEBA YUE PORTER [id number] Yue Seybold 2023-02-12 10:10:00 2023-02-12 10:10:00 Outpatient UDOET, GIO YUE PORTER [id number] Yue Seybold 2023-02-11 00:00:00 2023-02-11 00:00:00 Outpatient PREZAS, ABEBA YUE PORTER [id number] Yue Seybold 2023-02-07 00:00:00 2023-02-07 00:00:00 Outpatient PREZAS, ABEBA PORTER [id number] Yue Seybold 2023-02-07 00:00:00 2023-02-07 00:00:00 Outpatient PREZAS, ABEBAVIDAL PORTER [id number] Yue Seybold 2023-01-18 00:00:00 2023-01-18 00:00:00 Outpatient PREZAS, ABEBA YUE PORTER [id number] Yue Seybold 2023-01-16 00:00:00 2023-01-16 00:00:00 Outpatient YUE PORTER [id number] Yue Seybold 2023-01-15 08:00:00 2023-01-15 08:00:00 Outpatient UDOETUK, GIO YUE PORTER [id number] Yue Seybold 2023-01-15 08:00:00 2023-01-15 08:00:00 Outpatient 1, KUNAL PORTER [id number] Yue Seybold 2023-01-14 00:00:00 2023-01-14 00:00:00 Outpatient PREZAS, ABEBA YUE PORTER [id number] Yue Seybold 2023-01-13 00:00:00 2023-01-13 00:00:00 Outpatient PREZAS, ABEBA PORTER [id number] Yue Seybold 2023-01-09 00:00:00 2023-01-09 00:00:00 Outpatient PREZAS, ABEBA PORTER [id number] Yue Seybold 2023-01-08 11:40:00 2023-01-08 11:40:00 Outpatient LAB90 YUE PORTER [id number] Yue Boykin 2023-01-07 09:20:00 2023-01-07 09:20:00 Outpatient GRACIELA DUNN YUE PORTER [id number] Yue [facility]kin 2023-01-07 08:45:00 2023-01-07 08:45:00 Outpatient TOMOGRAPHY, MP YUE PORTER [id number] [facility] 2022-12-30 00:00:00 2022-12-30 00:00:00 Outpatient PREZAS, ABEBA YUE PORTER [id number] [facility] 2022-12-27 00:00:00 2022-12-27 00:00:00 Outpatient YUE PORTER [id number] Yue yby[facility]ka 2022-12-26 00:00:00 2022-12-26 00:00:00 Outpatient YUE PORTER [id number] [facility] 2022-12-25 00:00:00 2022-12-25 00:00:00 Outpatient YUE PORTER [id number] [facility] 2022-12-25 00:00:00 2022-12-25 00:00:00 Outpatient PREZAS, ABEBA YUE PORTER [id number] [facility] 2022-12-23 00:00:00 2022-12-23 00:00:00 Outpatient PREZAS, ABEBA PORTER [id number] [facility] 2022-12-20 00:00:00 2022-12-20 00:00:00 Outpatient PREZAS, ABEBA PORTER [id number] [facility] 2022-12-20 00:00:00 2022-12-20 00:00:00 Outpatient PREZAS, ABEBA PORTER [id number] [facility] 2022-12-18 00:00:00 2022-12-18 00:00:00 Outpatient YUE PORTER [id number] [facility] 2022-12-13 00:00:00 2022-12-13 00:00:00 Outpatient PREZAS ABEBA SCHILLINGSEY YUE [id number] [facility] 2022-12-11 00:00:00 2022-12-11 00:00:00 Outpatient YUE YUE [id number] [facility] 2022-12-10 00:00:00 2022-12-10 00:00:00 Outpatient YUE YUE [id number] [facility]ue [facility]by[facility]ka 2022-12-09 08:30:00 2022-12-09 08:30:00 Outpatient PREZASay, ABEBA PORTER YUE [id number] [facility] 2022-11-07 00:00:00 2022-11-07 00:00:00 Outpatient PREZASABEBA YUE [id number] [facility] 2022-11-01 00:00:00 2022-11-01 00:00:00 Outpatient BEBA BLAKE YUE PORTER [id number] [facility] 2022-10-23 00:00:00 2022-10-23 00:00:00 Outpatient PREZAABEBA Deal YUE [id number] Yue Seybold 2022-10-08 00:00:00 2022-10-08 00:00:00 Outpatient YUE PORTER [id number] Yue Seybold 2022-10-08 00:00:00 2022-10-08 00:00:00 Outpatient YUE PORTER [id number] Yue Seybold 2022-10-07 00:00:00 2022-10-07 00:00:00 Outpatient PREZAABEBA DealSHELLEY PORTER [id number] Yue Seybold 2022-10-07 00:00:00 2022-10-07 00:00:00 Outpatient PREZASABEBA YUE PORTER [id number] Yue Seybold 2022-10-04 00:00:00 2022-10-04 00:00:00 Outpatient PREZASABEBA YUE PORTER [id number] Yue Seybold 2022-10-02 00:00:00 2022-10-02 00:00:00 Outpatient MIGUEL SHEEHAN [id number] Yue Seybold 2022-09-12 00:00:00 2022-09-12 00:00:00 Outpatient ABEBA ACOSTA YUE [id number] Yue [facility]bydu[facility] 2022-09-10 00:00:00 2022-09-10 00:00:00 Outpatient ABEBA ACOSTA YUE [id number] [facility] 2022-09-09 10:00:00 2022-09-09 10:00:00 Outpatient LAB90 YUE YUE [id number] [facility] 2022-09-09 09:15:00 2022-09-09 09:15:00 Outpatient ABEBA ACOSTA YUE [id number] [facility] 2022-09-09 00:00:00 2022-09-09 00:00:00 Outpatient YUE YUE [id number] [facility] 2022-06-27 00:00:00 2022-06-27 00:00:00 Outpatient BEBABLAKE YUE PORTER [id number] [facility] 2022-06-25 00:00:00 2022-06-25 00:00:00 Outpatient BEBABLAKE FREITAS YUE PORTER [id number] [facility] 2022-06-17 00:00:00 2022-06-17 00:00:00 Outpatient BEBABLAKE FREITAS YUE PORTER [id number] [facility] 2022-06-13 15:10:00 2022-06-13 15:10:00 Outpatient LABMildred PORTER [id number] Yue [facility] 2022-06-12 00:00:00 2022-06-12 00:00:00 Outpatient BEBABLAKE FREITAS YUE PORTER [id number] [facility] 2022-06-11 10:35:00 2022-06-11 10:35:00 Outpatient LAB90 YUE PORTER [id number] Yue [facility]by[facility] 2022-06-11 09:30:00 2022-06-11 09:30:00 Outpatient BEBABLAKE YUE PORTER [id number] Yue Boykin Results Test Description Test Time Test Comments Results Result Co mments Source Yue Boykin - External Notes Date/Time Note Provider Source 2025-02-18 10:50:36 [facility] [place]2025-09-26 10:50:36* Wade Leblanc MD - 02/18/2025 10:14 AM CDT CC: POM#1, s/p CE/IOL both eyes HPI: Patient states vision is doing good. Denies pain, flashes, and floaters. Ocular History: - Pseudophakic both eyes - Pseudophakic OU Current Eye Medications: today patient used the last drops on Prednisolone and ketoralac this morning. Assessment: 1. Postoperative care for cataract Plan: S/p CE/IOL both eyes:- well healed - otc readers Return to clinic 1 year for Optometry [facility]2025-09-26 10:50:36Upcoming Encounters Health Maintenance Due Date Last Done Comments COLONOSCOPY 1954 CT Colonography 1954 FIT Tests 1954 Sigmoidoscopy 1954 Influenza Vaccines (#1) 2025 01/28/20 24, 02/11/2023, 02/10/2023 Zoster Vaccines (1 of 2) 06/04/2025 Pos tponed from 1973 (Patient Refused) Diabetes: Hemoglobin A1C 06/08/2025 025, 09/01/2024, 06/01/2024, Additional history exists Cologuard 06/17/2025 06/17/2022, 06/17/2022 Colorectal Cancer Screening 06/17/2025 Diabetes: Urine Protein Screening 09/01/2025 09/01/2024, 05/22/2023, 06/13/2022 Lipid Panel 09/01/2025 09/01/2024, 04/26, 06/11/2022 Physical Exam 09/06/2025 09/06/2024, 04/25, 06/11/2022 Creatinine Level (Kidney Function Test) 11/04/2025 11/04/2024, 09/01/2024, 08/22/2023, Additional history exists Diabetes: Retinopathy Screening 02/09/2026 02/09/2025, 02/09/2025, 11/07/2022 (Previously completed) Tdap Vaccines 01/27/2034 01/28/2024 RSV Vaccines Completed 02/11/2023, 02/10/2023 Pneumococcal Vaccine: 50+ Years Completed 04/05/2023 [facility]2025-09-26 10:50:36 [facility]2025-09-26 10:50:36 Diagnosis Postoperative care for cataract - Primary Follow-up examination, following other surgery [facility]2025-09-26 10:50:36 [place] [id number] 11:28:56* [facility]2025-09-17 11:28:56 [place] [id number] 11:28:56* Marzena Swain COA - 02/09/2025 11:00 AM CDT Judith Velázquez is a 69 year old male: here for retina follow up PDR. Patient reports: vision has improved since cataract surgery both eyes. Denies new complaints, flashes, floaters, pain both eyes. OPH Medications: Dorzalamide BID in OU, last dose AM FBS: Results for orders placed or performed in visit on 09/09/22 HGB A1C WITH MBG ESTIMATION Collection Time: 09/09/22 10:08 AM Result Value Ref Range HEMOGLOBIN A1C 7.1 (High) 4.8 - 5.6 % ESTIM. AVG GLU (EAG) 157 mg/dL Results for orders placed or performed in visit on 06/11/22 HGB A1C WITH MBG ESTIMATION Collection Time: 06/11/22 10:59 AM Result Value Ref Range HEMOGLOBIN A1C 7.3 (High) 4.8 - 5.6 % ESTIM. AVG GLU (EAG) 163 mg/dL * Gio Cordero MD - 02/09/2025 10:54 AM CDT HPI: Follow-up diabetic retinopathy. He notes better vision Color fundus photograph Right: Findings: MAs, IRH, HEs Interpretation: Left: Findings: Daisy, IRH, HEs Interpretation: Optical Coherence Tomography Right: Findings: CASEY GEIGER, ME Interpretation: Left: Findings: JUANJO, CASEY, ME Interpretation: Assessment: 1. 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 2 diabetes mellitus (multi HCC) 2. Diabetic macular edema, both eyes (multi HCC) 3. Pseudophakia, both eyes Plan: Moderate nonproliferative diabetic retinopathy Both Eyes - No neovascularization - No vitreous hemorrhage - Recommend observation - Encouraged tight blood sugar, blood pressure and cholesterol control - Return precautions discussed Diabetic macular edema Both Eyes: - Encouraged tight blood sugar, blood pressure and cholesterol control - Return precautions discussed Right: - s/p multiple Eylea by Dr Wong last on 11-07-22 - s/p Ozurdex on 04-09-23 - s/p multiple Avastin last on 11-24-24 - s/p multiple Vabysmo last on 01-12-25 - Center involving, trace Left: - s/p multiple Eylea by Dr Wong last on 11-07-22 - s/p multiple Avastin by Dr Wong last on 12-12-22 - s/p Ozurdex on 04-09-23 - s/p multiple Avastin last on 11-24-24 - s/p multiple Vabysmo last on 01-12-25 - Center involving, mild Both - Extensive discussion held with the patient regarding the risks, benefits and alternatives of treatment vs observation - Guarded visual prognosis discussed - Recommend Vabysmo q8 weeks x 3 then reassess - Will likely need lifelong VEGF suppression to maintain vision - Patient voiced understanding and elects to proceed Pseudophakic Both Eyes - Stable - Recommend observation. DIAGNOSIS: Diabetic macular edema Right Eye PROCEDURE TITLE: Intravitreal injection of faricimab-svoa (Vabysmo) 6 mg in 0.05ml Right Eye SURGEON: Gio Cordero MD ANESTHESIA: Topical and subconjunctival PROCEDURE: Extensive discussion regarding the risks, benefits and alternatives was carried out. Informed consent was obtained and verified with signature. Timeout was performed where the Right Eye was confirmed to be the correct eye with both the patient and the consent form. The eye was prepped and draped in a sterile ophthalmic fashion, including povidone iodine in the conjunctival fornices. Topical and subconjunctival anesthetic was administered. Intravitreal injection of faricimab-svoa was carried out with a 30 gauge needle via the pars plana, 3.5 mm posterior to the surgical limbus as measured. Post-injection optic nerve head perfusion confirmed. Return precautions discussed with patient. The patient tolerated the procedure well and left the clinic in stable condition. COMPLICATIONS: None ESTIMATED BLOOD LOSS: None SPECIMEN: None DIAGNOSIS: Diabetic macular edema Left Eye PROCEDURE TITLE: Intravitreal injection of faricimab-svoa (Vabysmo) 6 mg in 0.05ml Left Eye SURGEON: Gio Cordero MD ANESTHESIA: Topical and subconjunctival PROCEDURE: Extensive discussion regarding the risks, benefits and alternatives was carried out. Informed consent was obtained and verified with signature. Timeout was performed where the Left Eye was confirmed to be the correct eye with both the patient and the consent form. The eye was prepped and draped in a sterile ophthalmic fashion, including povidone iodine in the conjunctival fornices. Topical and subconjunctival anesthetic was administered. Intravitreal injection of faricimab-svoa was carried out with a 30 gauge needle via the pars plana, 3.5 mm posterior to the surgical limbus as measured. Post-injection optic nerve head perfusion confirmed. Return precautions discussed with patient. The patient tolerated the procedure well and left the clinic in stable condition. 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 2 diabetes mellitus (multi HCC) Diabetic macular edema, both eyes (multi HCC) Ordered: 02/09/2025 INTRAVITREAL NJX PHARMACOLOGIC AGT SPX Procedures Routine 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 2 diabetes mellitus (multi HCC) Diabetic macular edema, both eyes (multi HCC) Ordered: 02/09/2025 Health Maintenance Due Date Last Done Comments COLONOSCOPY 1954 CT Colonography 1954 FIT Tests 1954 Sigmoidoscopy 1954 COVID-19 Vaccine (5 - Pfizer risk season) 2025 06/04/2024, 05/22/2023, 05/22/2023, Additional history exists Influenza Vaccines (#1) 2025 01/28/20, 02/11/2023, 02/10/2023 Zoster Vaccines (1 of 2) 06/04/2025 Pos tponed from 1973 (Patient Refused) Diabetes: Hemoglobin A1C 06/08/2025 025, 09/01/2024, 06/01/2024, Additional history exists Cologuard 06/17/2025 06/17/2022, 06/17/2022 Colorectal Cancer Screening 06/17/2025 Diabetes: Urine Protein Screening 09/01/2025 09/01/2024, 05/22/2023, 06/13/2022 Lipid Panel 09/01/2025 09/01/2024, 04/26, 06/11/2022 Physical Exam 09/06/2025 09/06/2024, 04/25, 06/11/2022 Creatinine Level (Kidney Function Test) 11/04/2025 11/04/2024, 09/01/2024, 08/22/2023, Additional history exists Diabetes: Retinopathy Screening 11/24/2025 11/24/2024, 11/24/2024, 11/07/2022 (Previously completed) Tdap Vaccines 01/27/2034 01/28/2024 RSV Vaccines Completed 02/11/2023, 02/10/2023 Pneumococcal Vaccine: 50+ Years Com[id number]28[facility]2025-09-17 11:28:56 Diagnosis Moderate nonproliferative di abetic retinopathy of both eyes with macular edema associated with type 2 diabetes mellitus (multi HCC) - Primary Diabetic macular edema, both eyes (multi HCC) Type II or unspecified type diabetes mellitus with ophthalmic manifestations, not stated as uncontrolled Pseudophakia, both eyes Lens replaced by other means [facility]2025-09-17 11:28:56 [place] [id number] 13:46:27* [facility]2025-08-29 13:46:27 [place] [id number] 13:46:27* Brooke Clifton MD - 01/21/2025 10:20 AM CDT He is here for postop visit for sequential cataract surgery yesterday. He had no problems, and is doing well. Assessment: Postop, doing very well. Plan: Use drops per Dr. Leblanc's schedule. Avoid lifting, bending 1 week. RV [address] Leblanc. * Irish Ortiz OA - 01/21/2025 9:39 AM CDT CC: POD#1, s/p CE/IOL both eyes HPI: Patient states he slept well. Denies any pain or discomfort. Removed clear patch in office today. Started post op drops yesterday. Ocular History: - Pseudophakic both eyes Current Eye Medications: Ketorolac QID both eyes Moxifloxacin QID both eyes Prednisolone QID both eyes Dorzolamide BID both eyes, last used morning, will resume today [facility]2025-08-29 13:46:27Upcoming Encounters Health Maintenance Due Date Last Done Comments COLONOSCOPY 1954 CT Colonography 1954 FIT Tests 1954 Sigmoidoscopy 1954 COVID-19 Vaccine (5 - Pfizer risk ) 12/02/2024 06/04/2024, 05/22/2023, 05/22/2023, Additional history exists Influenza Vaccines (#1) 2025 01/28/20 24, 02/11/2023, 02/10/2023 Zoster Vaccines (1 of 2) 06/04/2025 Pos tponed from 1973 (Patient Refused) Diabetes: Hemoglobin A1C 06/08/2025 025, 09/01/2024, 06/01/2024, Additional history exists Cologuard 06/17/2025 06/17/2022, 06/17/2022 Colorectal Cancer Screening 06/17/2025 Diabetes: Urine Protein Screening 09/01/2025 09/01/2024, 05/22/2023, 06/13/2022 Lipid Panel 09/01/2025 09/01/2024, 04/26, 06/11/2022 Physical Exam 09/06/2025 09/06/2024, 04/25, 06/11/2022 Creatinine Level (Kidney Function Test) 11/04/2025 11/04/2024, 09/01/2024, 08/22/2023, Additional history exists Diabetes: Retinopathy Screening 11/24/2025 11/24/2024, 11/24/2024, 11/07/2022 (Previously completed) Tdap Vaccines 01/27/2034 01/28/2024 RSV Vaccines Completed 02/11/2023, 02/10/2023 Pneumococcal Vaccine: 50+ Years Completed 04/05/2023 [facility]2025-08-29 13:46:27 [facility]2025-08-29 13:46:27 Diagnosis Combined form of age-related cataract, both eyes - Primary [facility]2025-08-29 13:46:27 [facility]2025-08-20 11:47:34* [place] [id number] 11:47:34 [facility]2025-08-20 11:47:34* Gio Cordero MD - 01/12/2025 11:28 AM CDT HPI: Patient here for straight-Vabysmo #3/3 q4 weeks Both Eyes. Patient notes blurred vision. Assessment: 1. Diabetic macular edema, both eyes (multi HCC) Plan: DIAGNOSIS: Diabetic macular edema Right Eye PROCEDURE TITLE: Intravitreal injection of faricimab-svoa (Vabysmo) 6 mg in 0.05ml Right Eye SURGEON: Gio Cordero MD ANESTHESIA: Topical and subconjunctival PROCEDURE: Extensive discussion regarding the risks, benefits and alternatives was carried out. Informed consent was obtained and verified with signature. Timeout was performed where the Right Eye was confirmed to be the correct eye with both the patient and the consent form. The eye was prepped and draped in a sterile ophthalmic fashion, including povidone iodine in the conjunctival fornices. Topical and subconjunctival anesthetic was administered. Intravitreal injection of faricimab-svoa was carried out with a 30 gauge needle via the pars plana, 3.5 mm posterior to the surgical limbus as measured. Post-injection optic nerve head perfusion confirmed. Return precautions discussed with patient. The patient tolerated the procedure well and left the clinic in stable condition. COMPLICATIONS: None ESTIMATED BLOOD LOSS: None SPECIMEN: None DIAGNOSIS: Diabetic macular edema Left Eye PROCEDURE TITLE: Intravitreal injection of faricimab-svoa (Vabysmo) 6 mg in 0.05ml Left Eye SURGEON: Gio Cordero MD ANESTHESIA: Topical and subconjunctival PROCEDURE: Extensive discussion regarding the risks, benefits and alternatives was carried out. Informed consent was obtained and verified with signature. Timeout was performed where the Left Eye was confirmed to be the correct eye with both the patient and the consent form. The eye was prepped and draped in a sterile ophthalmic fashion, including povidone iodine in the conjunctival fornices. Topical and subconjunctival anesthetic was administered. Intravitreal injection of faricimab-svoa was carried out with a 30 gauge needle via the pars plana, 3.5 mm posterior to the surgical limbus as measured. Post-injection optic nerve head perfusion confirmed. Return precautions discussed with patient. The patient tolerated the procedure well and left the clinic in stable condition. COMPLICATIONS: None ESTIMATED BLOOD LOSS: None SPECIMEN: None Return in 4 weeks straight-Vabysmo 3/3 Both Eyes * Lilliam Pruett OA - 01/12/2025 11:25 AM CDT Judith Velázquez is a 69 year old male here for Ben-Ob-Woyrqzp both eyes. Patient states vision is blurry in OU Patient denies pain and discomfort in both eyes. Drop(s): Dorzalamide BID in OU, last dose AM [facility]2025-08-20 11:47:34Upcoming Encounters Scheduled Orders Name Type Priority Associated Diagnoses Orde r Schedule INTRAVITREAL NJX PHARMACOLOGIC AGT SPX Procedures Routine Diabetic macular edema, both eyes (multi HCC) Ordered: 01/12/2025 Scheduled Procedures Name Priority Associated Diagnoses Date/Ti me SEQUENTIAL LEFT CATARACT EXTRACTION BY PHACOEMULSIFICATION WITH INTRAOCULAR LENS IMPLANT PLACEMENT Combined form of age-related cataract, both eyes 01/20/2025 9:55 AM CDT SEQUENTIAL RIGHT CATARACT EXTRACTION BY PHACOEMULSIFICATION WITH INTRAOCULAR LENS IMPLANT PLACEMENT Combined form of age-related cataract, both eyes 01/20/2025 9:55 AM CDT Health Maintenance Due Date Last Done Comments COLONOSCOPY 1955 CT Colonography 1955 FIT Tests 1955 Sigmoidoscopy 1955 COVID-19 Vaccine (5 - Pfizer risk 2023- season) 2024 06/04/2024, 05/22/2023, 05/22/2023, Additional history exists Influenza Vaccines (#1) 2025 01/28/20 24, 02/11/2023, 02/10/2023 Zoster Vaccines (1 of 2) 06/04/2025 Pos tponed from 1973 (Patient Refused) Diabetes: Hemoglobin A1C 06/08/2025 025, 09/01/2024, 06/01/2024, Additional history exists Cologuard 06/17/2025 06/17/2022, 06/17/2022 Colorectal Cancer Screening 06/17/2025 Diabetes: Urine Protein Screening 09/01/2025 09/01/2024, 05/22/2023, 06/13/2022 Lipid Panel 09/01/2025 09/01/2024, 04/26, 06/11/2022 Physical Exam 09/06/2025 09/06/2024, 04/25, 06/11/2022 Creatinine Level (Kidney Function Test) 11/04/2025 11/04/2024, 09/01/2024, 08/22/2023, Additional history exists Diabetes: Retinopathy Screening 11/24/2025 11/24/2024, 11/24/2024, 11/07/2022 (Previously completed) Tdap Vaccines 01/27/2034 01/28/2024 RSV Vaccines Completed 02/11/2023, 02/10/2023 Pneumococcal Vaccine: 50+ Years Completed 04/05/2023 [facility]2025-08-20 11:47:34 Diagnosis Diabetic macular edema, both eyes (multi HCC) - Primary Type II or unspecified type diabetes mellitus with ophthalmic manifestations, not stated as uncontrolled Combined form of age-related cataract, both eyes [facility]2025-08-20 11:47:34 [facility]2025-07-30 09:22:26* [facility]2025-07-30 09:22:26 [facility]2025-07-30 09:22:26* Sonia To COA - 12/22/2024 9:15 AM CDT Judith Velázquez is a 69 year old male: here for straight vabysmo Patient reports: stable vision both eyes. Denies new complaints, flashes, floaters, pain both eyes. Patient was approved for vabysmo OPH Medications: dorzolamide FBS: Results for orders placed or performed in visit on 09/09/22 HGB A1C WITH MBG ESTIMATION Collection Time: 09/09/22 10:08 AM Result Value Ref Range HEMOGLOBIN A1C 7.1 (High) 4.8 - 5.6 % ESTIM. AVG GLU (EAG) 157 mg/dL Results for orders placed or performed in visit on 06/11/22 HGB A1C WITH MBG ESTIMATION Collection Time: 06/11/22 10:59 AM Result Value Ref Range HEMOGLOBIN A1C 7.3 (High) 4.8 - 5.6 % ESTIM. AVG GLU (EAG) 163 mg/dL * Gio Cordero MD - 12/22/2024 9:13 AM CDT HPI: Patient here for straight-Vabysmo #2/3 q4 weeks Both Eyes. Patient notes blurred vision. Assessment: 1. Diabetic macular edema, both eyes (multi HCC) Plan: DIAGNOSIS: Diabetic macular edema Right Eye PROCEDURE TITLE: Intravitreal injection of faricimab-svoa (Vabysmo) 6 mg in 0.05ml Right Eye SURGEON: Gio Cordero MD ANESTHESIA: Topical and subconjunctival PROCEDURE: Extensive discussion regarding the risks, benefits and alternatives was carried out. Informed consent was obtained and verified with signature. Timeout was performed where the Right Eye was confirmed to be the correct eye with both the patient and the consent form. The eye was prepped and draped in a sterile ophthalmic fashion, including povidone iodine in the conjunctival fornices. Topical and subconjunctival anesthetic was administered. Intravitreal injection of faricimab-svoa was carried out with a 30 gauge needle via the pars plana, 3.5 mm posterior to the surgical limbus as measured. Post-injection optic nerve head perfusion confirmed. Return precautions discussed with patient. The patient tolerated the procedure well and left the clinic in stable condition. COMPLICATIONS: None ESTIMATED BLOOD LOSS: None SPECIMEN: None DIAGNOSIS: Diabetic macular edema Left Eye PROCEDURE TITLE: Intravitreal injection of faricimab-svoa (Vabysmo) 6 mg in 0.05ml Left Eye SURGEON: Gio Cordero MD ANESTHESIA: Topical and subconjunctival PROCEDURE: Extensive discussion regarding the risks, benefits and alternatives was carried out. Informed consent was obtained and verified with signature. Timeout was performed where the Left Eye was confirmed to be the correct eye with both the patient and the consent form. The eye was prepped and draped in a sterile ophthalmic fashion, including povidone iodine in the conjunctival fornices. Topical and subconjunctival anesthetic was administered. Intravitreal injection of faricimab-svoa was carried out with a 30 gauge needle via the pars plana, 3.5 mm posterior to the surgical limbus as measured. Post-injection optic nerve head perfusion confirmed. Return precautions discussed with patient. The patient tolerated the procedure well and left the clinic in stable condition. COMPLICATIONS: None ESTIMATED BLOOD LOSS: None SPECIMEN: None Return in 4 weeks straight-Vabysmo 07/26 Both Eyes [facility]2025-07-30 09:22:26Upcoming Encounters Scheduled Orders Name Type Priority Associated Diagnoses Orde r Schedule INTRAVITREAL NJX PHARMACOLOGIC AGT SPX Procedures Routine Diabetic macular edema, both eyes (multi HCC) Ordered: 12/22/2024 Scheduled Procedures Name Priority Associated Diagnoses Date/Ti me SEQUENTIAL LEFT CATARACT EXTRACTION BY PHACOEMULSIFICATION WITH INTRAOCULAR LENS IMPLANT PLACEMENT Combined form of age-related cataract, both eyes 01/20/2025 9:55 AM CDT SEQUENTIAL RIGHT CATARACT EXTRACTION BY PHACOEMULSIFICATION WITH INTRAOCULAR LENS IMPLANT PLACEMENT Combined form of age-related cataract, both eyes 01/20/2025 9:55 AM CDT Health Maintenance Due Date Last Done Comments COLONOSCOPY 1954 CT Colonography 1955 FIT Tests 1955 Sigmoidoscopy 1955 COVID-19 Vaccine (5 - Pfizer risk 2023- season) 2024 06/04/2024, 05/22/2023, 05/22/2023, Additional history exists Influenza Vaccines (#1) 2025 01/28/20 24, 02/11/2023, 02/10/2023 Zoster Vaccines (1 of 2) 06/04/2025 Pos tponed from 1973 (Patient Refused) Diabetes: Hemoglobin A1C 06/08/2025 07/2 025, 09/01/2024, 06/01/2024, Additional history exists Cologuard 06/17/2025 06/17/2022, 06/17/2022 Colorectal Cancer Screening 06/17/2025 Diabetes: Urine Protein Screening 09/01/2025 09/01/2024, 05/22/2023, 06/13/2022 Lipid Panel 09/01/2025 09/01/2024, 04/26, 06/11/2022 Physical Exam 09/06/2025 09/06/2024, 04/25, 06/11/2022 Creatinine Level (Kidney Function Test) 11/04/2025 11/04/2024, 09/01/2024, 08/22/2023, Additional history exists Diabetes: Retinopathy Screening 11/24/2025 11/24/2024, 11/24/2024, 11/07/2022 (Previously completed) Tdap Vaccines 01/27/2034 01/28/2024 RSV Vaccines Completed 02/11/2023, 02/10/2023 Pneumococcal Vaccine: 50+ Years Com[id number]26 Diagnosis Diabetic macular edema, both eyes (multi HCC) - Primary Type II or unspecified type diabetes mellitus with ophthalmic manifestations, not stated as uncontrolled Combined form of age-related cataract, both eyes [facility] [id number] 09:22:26 [id number] 09:01:18 Chief Complaint Patient presents with Diabetes Blood Pressure 3 month follow up Ezio Stafford MA [place] [id number] 15:13:13 Chief Complaint Patient presents with Hospital F/U Ezio Stafford MA [place] [id number] 11:29:00 Chief Complaint Patient presents with Hospital F/U Patient admitted on 10/01 DC 10/04/24 Ezio Stafford MA [place] [id number] 09:04:20 Chief Complaint Patient presents with Physical HRA Ezio Stafford MA [facility][NOTE 3] [place] [id number] 09:35:00 Chief Complaint Patient presents with Cough Patient complains of cold symptoms for over 2 months Ezio Stafford MA [facility][NOTE 3] [place] [id number] 10:00:12 A1C Collected: 08/22/2023 resulted 7.3 [facility][NOTE 3] [facility]ueAshutosh [facility]
[2025-03-02 18:41] LABS: Sqamous Epithelial None Seen /HPF (None Seen); Urine Culture Reflex Order NOT NEEDED; Urine Microscopic Reflex YN ORDER UMIC
--- NOTE | 2025-03-02 19:11 | EDPHYS ---
Physician Documentation [facility] Name: Sawyer Beltran Age: 69 yrs Sex: Male : 1955 Arrival Date: 03/02/2025 Time: 17:46 Bed 3 Private MD: ED Physician Jj Walter HPI: 03/02 20:26 This 69 yrs old Male presents to ER via Ambulatory with complaints of Swelling of Lower ms3 Extremity. 20:26 69-year-old male with past medical history of diabetes, glaucoma, hypercholesterolemia, ms3 hypertension, atrial fibrillation presents to the emergency department for mass in his right groin. Patient states the area has been swelling intermittently over the last 3 days. Patient noted the area to be larger tonight. Patient states the discomfort is a 5/10. He denies any alleviating or inciting factors. Historical: - Allergies: 17:56 Ampicillin; dd2 - PMHx: 17:56 diabetes mellitus; Glaucoma; Hypercholesterolemia; Hypertensive disorder; Atrial dd2 fibrillation; - PSHx: 17:56 None; dd2 - Immunization history:: Adult Immunizations up to date. - Infectious Disease History:: Denies. - Social history:: Smoking status: Patient denies any tobacco usage or history of. ROS: 20:26 Constitutional: Negative for fever, and chills. Cardiovascular: Negative for chest ms3 pain, and palpitations. Respiratory: Negative for shortness of breath, cough, wheezing, and pleuritic chest pain, 20:26 Abdomen/GI: Negative for abdominal pain, nausea, vomiting, diarrhea, and constipation, 20:26 : Positive for Mass in right groin, 20:26 Skin: Positive for Rash in right groin, Exam: 20:26 Constitutional: This is a well developed, well nourished patient who is awake, alert, ms3 and in no acute distress. Cardiovascular: Regular rate and rhythm with a normal S1 and S2. No gallops, murmurs, or rubs. Normal PMI, no JVD. No pulse deficits. Respiratory: Lungs have equal breath sounds bilaterally, clear to auscultation and percussion. No rales, rhonchi or wheezes noted. No increased work of breathing, no retractions or nasal flaring. Abdomen/GI: Soft, non-tender, with normal bowel sounds. No distension or tympany. No guarding or rebound. No evidence of tenderness throughout. Skin: Warm, dry with normal turgor. Normal color with no rashes, no lesions, and no evidence of cellulitis. 20:26 Musculoskeletal/extremity: Right inguinal hernia noted that is mildly tender to palpation without overlying erythema, reducible.. 20:26 Skin: And right thigh crease area of erythema noted. Vital Signs: 17:56 BP 155 / 83; Pulse 92; Resp 16; Temp 98.1; Pulse Ox 96% ; Weight 88.45 kg; Pain 5/10; dd2 19:29 BP 152 / 84; Pulse 89; Resp 18; Pulse Ox 95% on R/A; kb4 17:56 Pain Scale: Adult dd2 MDM: 17:58 Medical Screening Exam initiated ms3 20:26 Differential diagnosis: Tinea cruris versus inguinal hernia. Data reviewed: vital ms3 signs, nurses notes, lab test result(s), and as a result, I will discharge patient. I considered the following discharge prescriptions or medication management in the emergency department See prescription. Counseling: I had a detailed discussion with the patient and/or guardian regarding the historical points, exam findings, and any diagnostic results supporting the discharge/admit diagnosis, lab results, the need for outpatient follow up, to return to the emergency department if symptoms worsen or persist or if there are any questions or concerns that arise at home. ED course: Discussed physical exam findings and urinalysis results with patient. Patient to follow-up with his primary care physician 2 to 3 days. Patient given referral to Dr. Olivarez for inguinal hernia. Return precautions discussed include vomiting, erythema over hernia, increased pain in the hernia area, or any other concerns. Patient understands agrees with plan. All questions were answered. on reevaluation patient is alert and oriented x 4, no apparent distress, nontoxic-appearing, speaking full sentences, ambulatory in the emergency departmenterns. 03/02 18:18 Order name: UA Rfx Lokesh Cult if indicated; Complete Time: 18:51 ms3 Administered Medications: No medications were administered Disposition Summary: 03/02/25 19:10 Discharge Ordered Notes: Location: Home ms3 Condition: Stable ms3 Diagnosis - Unilateral inguinal hernia, without obstruction or gangrene ms3 - Tinea cruris ms3 Followup: ms3 - With: Baron Olivarez MD - When: 2 - 3 days - Reason: Recheck today's complaints Discharge Instructions: - Discharge Summary Sheet ms3 - Inguinal Hernia, Adult, [id number] ms3 - Jock Itch, [id number] ms3 Forms: - Medication Reconciliation Form ms3 - Antibiotic Education ms3 - Prescription Opioid Use ms3 - Patient Portal Instructions ms3 - Leadership Thank You Letter ms3 Prescriptions: - clotrimazole 1 % Topical cream - apply 1 application TOPICAL route 2 times per day for 4 wks; 45 gram; Refills: ms3 0, Product Selection Permitted Signatures: Dispatcher [employer] EDMS Jj Walter DO DO ms3 MANJINDRE FINK RN RN dd2 Corrections: (The following items were deleted from the chart) 18:19 18:19 UA Rfx Lokesh Cult if indicated+[id number].LAB.BRZ ordered. EDMS EDMS
--- NOTE | 2025-03-02 19:11 | ER ---
Nurse's Notes [facility] Name: Sawyer Beltran Age: 69 yrs Sex: Male : 1955 Arrival Date: 03/02/2025 Time: 17:46 Bed 3 Private MD: Diagnosis: Unilateral inguinal hernia, without obstruction or gangrene;Tinea cruris Presentation: 03/02 17:54 Chief complaint: Patient states: swelling in the rt groin x 3 days with today dd2 increasing in size. Coronavirus screen: At this time, the client does not indicate any symptoms associated with coronavirus-19. Ebola Screen: No symptoms or risks identified at this time. Risk Assessment: Do you want to hurt yourself or someone else? Patient reports no desire to harm self or others. Onset of symptoms was February 27, 2025. 17:54 Method Of Arrival: Ambulatory dd2 17:54 Acuity: AMAN 3 dd2 17:56 Initial Sepsis Screen: Does the patient meet any 2 criteria? No. Patient's initial dd2 sepsis screen is negative. Does the patient have a suspected source of infection? No. Patient's initial sepsis screen is negative. Triage Assessment: 17:56 General: Appears in no apparent distress. uncomfortable, Behavior is calm, cooperative, dd2 appropriate for age. Pain: Complains of pain in right femoral area. 17:56 Derm: Reports swelling and pain to rt groin. dd2 Historical: - Allergies: 17:56 Ampicillin; dd2 - PMHx: 17:56 diabetes mellitus; Glaucoma; Hypercholesterolemia; Hypertensive disorder; Atrial dd2 fibrillation; - PSHx: 17:56 None; dd2 - Immunization history:: Adult Immunizations up to date. - Infectious Disease History:: Denies. - Social history:: Smoking status: Patient denies any tobacco usage or history of. Screenin:28 [facility] ED Fall Risk Assessment (Adult) History of falling in the last 3 months, vc1 including since admission No falls in past 3 months (0 pts) Confusion or Disorientation No (0 pts) Intoxicated or Sedated No (0 pts) Impaired Gait No (0 pts) Mobility Assist Device Used No (0 pt) Altered Elimination No (0 pt) Score/Fall Risk Level 0 - 2 = Low Risk Oriented to surroundings, Maintained a safe environment, Educated pt \T\ family on fall prevention, incl call for assistance when getting out of bed, Assessed \T\ reinforced patient's understanding of fall precautions, Hourly rounding (assess needs \T\ fall precautionary measures) done. Abuse screen: Denies threats or abuse. Nutritional screening: No deficits noted. Tuberculosis screening: No symptoms or risk factors identified. Assessment: 19:29 Reassessment: No changes from previously documented assessment. Patient and/or family kb4 updated on plan of care and expected duration. Pain level reassessed. Patient is alert, oriented x 3, equal unlabored respirations, skin warm/dry/pink. Vital Signs: 17:56 BP 155 / 83; Pulse 92; Resp 16; Temp 98.1; Pulse Ox 96% ; Weight 88.45 kg; Pain 5/10; dd2 19:29 BP 152 / 84; Pulse 89; Resp 18; Pulse Ox 95% on R/A; kb4 17:56 Pain Scale: Adult dd2 ED Course: 17:50 Patient arrived in ED. mr 17:51 Jj Walter DO is Attending Physician. ms3 17:56 Triage completed. dd2 17:56 Arm band placed on right wrist. dd2 19:00 Patient has correct armband on for positive identification. Bed in low position. vc1 19:00 Provided Education on: Plan of care. vc1 19:08 Baron Olivarez MD is Referral Physician. ms3 19:29 Leila Pretty, DEVENDRA is Primary Nurse. kb4 19:29 No provider procedures requiring assistance completed. Patient did not have IV access vc1 during this emergency room visit. Administered Medications: No medications were administered Medication: 19:29 VIS not applicable for this client. vc1 Outcome: 19:10 Discharge ordered by . ms3 19:29 Discharged to home ambulatory, with significant other, vc1 19:29 Condition: stable 19:29 Discharge instructions given to patient, Instructed on discharge instructions, follow up and referral plans. medication usage, Demonstrated understanding of instructions, follow-up care, medications, 19:30 Patient left the ED. vc1 Signatures: Yuly Howard, Reg Reg mr SabaJj DO DO ms3 Madison Blake RN RN vc1 MANJINDER FINK RN RN dd2 Leila Pretty RN RN kb4
[2025-03-02 19:34] VITALS: BP 155/83; TEMP 98.1; O2SAT 96
== END 2025-03-02 19:30 | disposition home or self-care (01) ==
LOC: ER 17:46
DX: K40.90 Unilateral inguinal hernia, without obstruction or gangrene, not specified as recurrent (principal); B35.6 Tinea cruris
CPT/HCPCS: 81001; 99282